=== PATIENT | male | born 2000 | race Caucasian/White ===

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

== ENCOUNTER 2021-01-23 07:52 | Outpatient (CLI) | payer BC, SELFPAY ==
--- NOTE | 2021-01-23 | ECHO_ITS ---
Patient Info Name: Rajat Mullins Age: 20 years : 2000 Gender: Male Ht: 73 in Wt: 140 lbs BSA: 1.79 m2 HR: 107 bpm BP: 174 / 104 mmHg Heart Rhythm: Tachycardia, Sinus Rhythm Exam Date: 01/23/2021 8:21 AM Exam Location: [facility] Patient Status: Outpatient Admit Date: 01/23/2021 Staff Ordering Physician: Saul Rivera MD Phthalic Acid Purifier: Rajat Franco RDCS, RT Attending Provider: Saul Rivera MD Referring Physician: Miguel CATALAN; Exam Type: CA echo doppler color flow Study Info Indications R06.00 - Dyspnea, unspecified Complete two-dimensional, color flow and Doppler transthoracic echocardiogram is performed. Strain analysis performed. Summary 1. Complete two-dimensional, color flow and Doppler transthoracic echocardiogram is performed. 2. Left ventricular chamber dimension is normal. 3. Left ventricular systolic function is normal, estimated at 60-65%. 4. There is no increased left ventricular wall thickness. 5. Elongated heart. 6. The left ventricular diastolic function is normal. 7. There is no mitral valve regurgitation. 8. There is trace tricuspid valve regurgitation. 9. Unable to estimate PA systolic pressure due to poor spectral resolution of tricuspid regurgitant jet velocity. 10. There is a small anterior pericardial effusion. Left Ventricle Left ventricular chamber dimension is normal. Left ventricular systolic function is normal, estimated at 60-65%. There is no increased left ventricular wall thickness. The left ventricular diastolic function is normal. Global longitudinal strain is mildly elevated at -15 %. Elongated heart. Right Ventricle Right ventricular chamber dimension is normal. Right ventricular systolic function is normal. Left Atria Left atrial chamber dimension is normal. Right Atria Right atrial chamber dimension is normal. Aortic Valve The aortic valve is probable trileaflet. There is no aortic valve stenosis. There is no aortic valve regurgitation. Pulmonic Valve The pulmonic valve is not well visualized. Mitral Valve The mitral valve has normal leaflets. There is no mitral valve regurgitation. Tricuspid Valve The tricuspid valve leaflets are normal. There is trace tricuspid valve regurgitation. Unable to estimate PA systolic pressure due to poor spectral resolution of tricuspid regurgitant jet velocity. Pericardium/Pleural The pericardium appears normal. There is a small anterior pericardial effusion. Inferior Vena Cava Normal inferior vena cava with >50% collapse upon inspiration consistent with normal right atrial pressure, 5 mmHg. Aorta The aortic root size at the sinus of Valsalva is normal. Left Ventricular Outflow Tract Name Value Normal LVOT 2D LVOT Diameter 1.9 cm LVOT Doppler LVOT Peak Gradient 3 mmHg LVOT Mean Gradient 1 mmHg LVOT VTI 12 cm LVOT VTI/AV VTI Ratio 0.8 LVOT Stroke Volume 33 ml LVOT CO 3.3 l/min LV
--- NOTE | 2021-01-28 18:27 | WPDPFTINT ---
PFT Procedure Performed PFT Procedure Performed Spirometry with Pre/Post Bronchodilator Plethysmography (Lung Vol) Diffusing Cap (DLCO) Flow Vol Loop PFT Interpretation DOS: 01/23/2021 REQUESTING: Dr Saul Rivera REASON FOR TESTING: Pectus carinatum, dyspnea PULMONARY FUNCTION TESTS Spirometry: FEV1 is 71%, 3.56 L, mildly decreased. FVC is normal, 87%. The FEV1/ FVC ratio is 69%, decreased, consistent with mild airflow obstruction. After bronchodilator therapy there is no increase in flows. Lung volumes: Total lung capacity is increased 135%, consistent with mild hyperinflation. Residual volume is severely increased, 132%, indicating severe air trapping. RV/TLC is at the upper limit of normal, 35%. Airway resistance is normal 123%. Diffusion: DLCO is 90%, normal. Flow volume loop: Abnormal inspiratory limb. IMPRESSION: Mild obstructive ventilatory defect, mild hyperinflation, severe air trapping and normal diffusion. No response to bronchodilator. Lack of response to bronchodilator should not preclude use if clinically indicated. Tiffany Ramsey MD
== END 2021-01-23 07:53 | disposition home or self-care (01) ==
PROVIDERS: PCP Emergency Medicine; Visit Provider Emergency Medicine
DX: Q67.7 Pectus carinatum (principal); R06.00 Dyspnea, unspecified
CPT/HCPCS: 93306; 94060; 94726; 94729

== ENCOUNTER 2024-07-26 08:40 | Emergency (ER) | payer BC, SELFPAY ==
[2024-07-26 08:46] VITALS: BP 155/71; PULSE 89; RESP 18; TEMP 36.7; O2SAT 100
--- NOTE | 2024-07-26 08:59 | ED.URI ---
HPI - URI/Sore Throat General Chief Complaint: Upper Respiratory Infection Stated Complaint: Sore Throat/Cough/Body Aches Time Seen by Provider: 07/26/24 09:03 Source: patient and RN notes reviewed Mode of arrival: ambulatory Limitations: no limitations History of Present Illness HPI Narrative: 23-year-old male presents concern for sore throat, hoarse voice, body aches and cough for 2 days. Reports he feels fevers but has not taken his temperature. He has not taken any [id number] medications MD elicited complaint: cough and sore throat Related Data Home Medications ?Medication ?Instructions ?Recorded ?Confirmed ?Last Taken ?Type Cialis 07/26/24 Unknown History Allergies Allergy/AdvReac Type Severity Reaction Status Date / Time No Known Allergies Allergy Unverified 07/01/17 11:33 Review of Systems Review of Systems: CONSTITUTIONAL: Denies malaise, chills, sweats. Reports tactile fever. EYES: Denies visual changes, redness, or discharge. ENT: Reports rhinorrhea, congestion, and sore throat. CARDIOVASCULAR: Denies chest pain, palpitations, or edema. RESPIRATORY: Reports cough. Denies dyspnea. GASTROINTESTINAL: Denies abdominal pain, nausea, vomiting, diarrhea SKIN: Denies rash or itching. MUSCULOSKELETAL: Denies myalgia. NEUROLOGIC: Denies headache. All systems reviewed & are unremarkable except as noted in HPI and below PMFSH Comments At time of signature, agree with nursing past medical, surgical, social and family history. There is no relevant family history pertinent to the presenting complaint Exam Narrative: GENERAL: Well-appearing, well-nourished, and in no acute distress. HEAD: Normocephalic EYES: PERRLA, conjunctivae clear ENT: Nares clear. Mucous membranes moist. TM pearly lopes with sharp light reflex bilaterally; no tragal tenderness. Oropharynx not erythematous without lesions. Tonsils not enlarged and without exudate, no drooling, no hoarseness, no trismus, uvula midline. NECK: Supple. No lymphadenopathy CHEST: Clear to auscultation, breath sounds equal. No wheezing, rhonchi, rales, or stridor. No respiratory distress, speaks in full sentences. HEART: Regular rate and rhythm. No murmur heard. SKIN: Warm, dry, no rash. NEURO: Alert and oriented x3. PSYCH: Normal mood and affect Course Course Emergency Course: Patient is aware of diagnosis, understands and agrees to treatment plan. Anticipatory guidance given. Patient agrees to follow-up as directed and is aware of reasons to seek care at the emergency department. Portions of this record may have been created with voice recognition software Level of Care: Express Care Visit Vital Signs Vital signs: Vital Signs Temperature 98.1 F 07/26/24 08:46 Pulse Rate 89 07/26/24 08:46 Respiratory Rate 18 07/26/24 08:46 Blood Pressure 155/71 H 07/26/24 08:46 Pulse Oximetry 100 07/26/24 08:46 Oxygen Delivery Room Air 07/26/24 08:46 Temperature 98.1 F 07/26/24 08:46 Pulse Rate 89 07/26/24 08:46 Respiratory Rate 18 07/26/24 08:46 Blood Pressure 155/71 H 07/26/24 08:46 Pulse Oximetry 100 07/26/24 08:46 Oxygen Delivery Room Air 07/26/24 08:46 Reviewed. MDM - URI/Sore Throat MDM Narrative Medical decision making narrative: Differential diagnosis considered: [place] virus, strep pharyngitis, allergic rhinitis, upper respiratory tract infection, sinusitis, rhinosinusitis, nasopharyngitis. viral pharyngitis, otitis media, otitis externa, pneumonia, bronchitis, viral cough syndrome, viral syndrome, and influenza. Exam findings show no acute concerns or changes; patient is non-toxic appearing and is in no distress. Patient is appropriate for outpatient treatment and follow-up. Lab Data Attestation: I reviewed the patient's lab results. Critical Care Time Critical Care Time Critical Care Time: No Discharge Plan Discharge Clinical Impression: Upper respiratory infection Patient Disposition: Home, Self-Care Condition: Stable Instructions: Upper Respiratory Infection (ED) Additional Instructions: Your rapid COVID and flu tests are negative Your rapid strep swab was negative today at [facility]. A throat culture will be sent to the laboratory for further testing. If the test is positive, you will receive a phone call within 48 hours and an appropriate antibiotic will be initiated at that time. Your symptoms are likely due to a viral illness, which is not treated with antibiotics. Viral symptoms can be present for up to a few weeks. -Alternate Tylenol and Motrin per package directions for fever or pain. -Antihistamine medication such as Benadryl at night and Zyrtec during the day can help improve symptoms. -Eat and drink things that are easy to swallow, like tea or soup, or popsicles to suck on. -Oral rinses such as: Salt water gargles and/or may use topical anesthetic (eg. Chloraseptic spray) or lozenges to relieve dryness or throat pain). -Frequent hand washing or hand gravel wheeler is one of the best ways to prevent spread of infection. -Follow up with primary care provider in 2-3 days if condition is not improving; or seek ER visit if you have trouble breathing, cannot drink enough fluids, have muffled voice, difficulty opening your mouth, or severe swelling. Patient Language: Hungarian Prescriptions: New pseudoephedrine HCl [12 Hour Decongestant] 120 mg tablet extended release 120 mg PO Q12H PRN (Reason: nasal congestion) Qty: 20 0RF dextromethorphan-guaifenesin [Mucinex DM] 60-1,200 mg tablet extended release 12 hr 1 tablet PO Q12H Qty: 12 0RF No Action Cialis Follow-up/Referrals: PHYSICIAN,[facility] [Primary Care Provider] - Stand Alone Forms: Work/School Release IP Time of Disposition: 09:10
[2024-07-26 09:07] LABS: EDCOVIDSCREEN Negative (Negative); EDINFLUASCREEN Negative (Negative); EDINFLUBSCREEN Negative (Negative)
[2024-07-26 09:07] LABS: EDSTREPNEGPOS1 Negative (Negative)
--- OUTSIDE RECORDS SUMMARY | 2024-07-26 09:15 | XMS_ITS | Clinical Summary ---
Author Organization [facility] Address [address] [place] [address] Care Team Providers Care Channel Account Manager Name Role Phone Saul Rivera MD Primary Care Provider [phone] Allergies No known active allergies Medications sertraline (ZOLOFT) 50 mg tablet Take 50 mg by mouth daily 1 Active adapalene (DIFFERIN) 0.3 % gel Apply 1 application topically nightly 1 Active clindamycin (CLEOCIN T) 1 % external solution Apply 1 application topically 2 (two) times a day Apply to the face and trunk. 1 Active minocycline (MINOCIN,DYNACIN) 100 mg capsuleIndication s:for acne Take 100 mg by mouth 2 (two) times a day 1 Active cholecalciferol (VITAMIN D-3) 5,000 unit capsule Take 5,000 Units by mouth daily Active acetaminophen (TYLENOL) 325 mg tabletIndications :Pain Take 2 tablets (650 mg total) by mouth every 4 (four) hours as needed for pain 2 Active Additional Information Patient not taking.Reported on 07/31/2022 methylphenidate ER (CONCERTA) 27 mg CR tabletIndications :Attention-Defici t Hyperactivity Disorder Take 27 mg by mouth every morning Active acetaminophen (TYLENOL) 325 mg tabletIndications :Pain Take 2 tablets (650 mg total) by mouth every 6 (six) hours as needed for pain 30 tablet 3 Active Additional Information Patient not taking.Reported on 07/31/2022 ibuprofen (ADVIL,MOTRIN) 400 mg tablet Take 1.5 tablets (600 mg total) by mouth every 6 (six) hours as needed for pain 30 tablet 3 Active Additional Information Patient not taking.Reported on 07/31/2022 methylphenidate ER (CONCERTA) 18 mg CR tablet Take 18 mg by mouth every morning 2 Active Active Problems Problem Noted Date Diagnosed Date Anxiety 08/06/2021 Depression 08/06/2021 Asthma 08/06/2021 Acute post-operative pain 08/06/2021 Pectus carinatum 10/25/2020 Immunizations Name Administration Dates Next Due DTaP 11/05/2005, 3,05/17/2002,03/16,01/01/2002 HPV9 12/30/2017 Hep A, Pediatric 12/30/2017 Hep B, Adolescent or Pediatric 2,01/01/2002,2001,10/29 HiB 01/31/2003, 2,03/16/2002,01/01 Hib (HbOC) 01/31/2003 IPV 11/05/2005, 3,05/17/2002,03/16,01/01/2002 Influenza, Quadrivalent, Spl it, Preservative Free, Intramuscular 08/10/2021 MMR 11/05/2005,01/31/2003 Meningococcal Conjugate (Menveo) 12/30/2017 Pneumococcal Conjugate 7-Valent 05/03/20 03,10/31/2002,05/17/2002,03/16,01/01/2002 Pneumococcal Conjugate, Unspecified 05/03/2003 Tdap 02/25/2013 Varicella 03/05/2016,10/31/2002 Surgical History Surgery Date Site/Laterality Comments UPPER GASTROINTESTINAL ENDOSCOPY 06/15/2014 - 06/14/2015 OTHER SURGICAL HISTORY x2- one surgery on arm for spider bite, second on leg for infection-no MRSA per pt CHEST SURGERY RECONSTRUCTION PECTUS EXCAVATUM / CARINATUM W/ OR W/O THORASCOPY 08/06/2021 Aidan PECTUS CARNATUM REPAIR 08/06/2021 Medical History Medical History Date Comments Pectus carinatum 10/25/2020 Anxiety Spider bite surgery on arm Family History Medical History Relation Name Comments No Known Problems Brother Lupus Mother No Known Problems Sister Relation Name Status Comments Brother Mother Sister Social History Tobacco Use Types Packs/Day Years Used Date Smoking Tobacco: Never Smokeless Tobacco: Never Tobacco Cessation:Counseling Given: Not Answered Personal Safety Answer Date Recorded Getting School Help Needed Denies 06/05 Sex and Gender Information Value Date Recorded Sex Assigned at Not on file Legal Sex Male 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 Gender Identity Not on file Sexual Orientation Not on file Obstetrics History Last Filed Vital Signs Vital Sign Reading Time Taken Comments Blood Pressure 104/60 07/31/2022 10:40 AM BIAS CUTTING MACHINE OPERATOR Pulse 86 07/31/2022 10:40 AM BIAS CUTTING MACHINE OPERATOR Temperature 36.4 C (97.5 F) 07/04/2022 4:25 PM BIAS CUTTING MACHINE OPERATOR Respiratory Rate 18 07/04/2022 4:25 PM BIAS CUTTING MACHINE OPERATOR Oxygen Saturation 100% 07/31/2022 10:40 AM BIAS CUTTING MACHINE OPERATOR Inhaled Oxygen Concentration - - Weight 67 kg (147 lb 9.6 oz) 07/31/2022 10:40 AM BIAS CUTTING MACHINE OPERATOR Height 187.5 cm (6' 1.82 ) 07/31/2022 10:[address] Body Mass Index 19.04 07/31/2022 10:40 AM BIAS CUTTING MACHINE OPERATOR Plan of Treatment Health Maintenance Due Date Last Done Comments Depression Screening 2000 Hepatitis C Screening 2000 Pneumococcal vaccine <65 (1 of 1 - PPSV23 or PCV20) 10/30/2007 05/03/2003, 05/03/2003, 10/31/2002, Additional history exists Meningococcal B Vaccine (1 o f 2 - Patient Seeks Protection) 2017 HPV Vaccines (2 - Male 3-dos e series) 01/27/2018 12/30/2017 Regular Well Visit/Exam 18-64 10/30/2019 DTaP/Tdap/Td Vaccine (7 - Td or Tdap) 02/25/2023 02/25/2013, 11/05/2005, 05/03/2003, Additional history exists Influenza Vaccine (#1) 2024 08/10/2021 Varicella Vaccines Completed 03/05/2016, 10/31/2002 Medical Devices Explanted Type Area Apparel Sales Associate Device Identifier Shelf Expiration Date Model / Serial / Lot [employer] [id number] Reagan 18cm Strut Pectus Bar Support Stainless Steel - [id number] Implanted:Qty: 1 on 08/06/2021 by Francisco Berg MD at [facility] Explanted:Qty: 1 on 07/04/2022 by Deep Nova MD at [facility] N/A: Chest [employer] [id number] / / Insurance IDAR Inaaya [facility] In[employer]aya CHOICE [place] IDPA [employer] OOS Member Subscriber Plan / Payer (Ef fective 2020-Present) Name:Rajat Mullins Relation to Subscriber:Self Name:Rajat Mullins Payer ID:[id number] (NAIC) Type:Business Lab Address: [address] [place] [address] [employer] OOS Member Subscriber Plan / Payer (Ef fective 2020-Present) Name:Rajat Mullins Relation to Subscriber:Self Name:Rajat Mullins Payer ID:[id number] (NAIC) Type:Business Lab Address: [address] [place] [address] [place] [address] Advance Directives For more information, please contact: [phone] Documents on File Type Date Recorded 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
--- OUTSIDE RECORDS SUMMARY | 2024-07-26 09:15 | XMS_ITS | Referral Summary ---
Author Organization [facility] Address [address] [place] [address] Care Team Providers Care Java Grails Developer Name Role Phone Saul Rivera MD Primary Care Provider [phone] Source Comments [facility],non-owned Affiliates and Associated Physician Practices is amultiple site organization consisting of ambulatory clinics and hospital sitesin [place], [place], [place] and [place]. This disclosure is being madepursuant to the Care Everywhere program and may not contain all information available regarding this patient. Last updated 18.[facility] Allergies No known active allergies Medications * Be aware that medications may not be up to date on this document. Alwaysverify current medications with the patient. Medication Sig Dispensed Refills Start Date End Date Status diphenhydrAMINE (BENADRYL) 25 MG tablet Take by mouth every 4 hours as needed for Itching Active atomoxetine (STRATTERA) 10 MG capsule Take 25 mg by mouth every morning Active QUEtiapine (SEROQUEL) 25 MG tablet Take 12.5 mg by mouth at bedtime Active sertraline (ZOLOFT) 50 MG tablet Take 50 mg by mouth once daily Active propranolol (INDERAL) 10 MG tablet Take 10 mg by mouth as needed for Hypertension Taking for anxiety Active albuterol HFA (VENTOLIN HFA) 108 (90 Base) MCG/ACT inhaler inhale 2 puff by inhalation route every 4 - 6 hours as needed as needed 03/18/2021 Active clindamycin (CLEOCIN T) 1 % solution APPLY 1 APPLICATION ON THE FACE AND TRUNK TWICE DAILY 02/01/2021 Active escitalopram (LEXAPRO) 10 MG tablet 02/09/2020 Active minocycline (MINOCIN) 100 MG capsule Take 1 capsule by mouth every 12 hours 03/18/2021 Active Active Problems Patient Care Coordination No te Formatting of this note migh t be different from the original. Standing lab orders, [facility] ([facility]); valid 03/15/18-09/13/18 Problem Noted Date Diagnosed Date Anxiety 04/23/2018 Overview (04/23/2018): adolescent onset 04/23/18 very self-conscious about pectus>acne; home-school GED program with special training ; denies feelings of self-harm; Psych eval planned pending 05/12 counselor assessment brother with h/o depression/on medication Acne conglobata 02/19/2018 Overview (04/23/2018): Citizen.VC #[id number] 02/19/18 severe chest/back>face on Augmentin, clinda, BPO; Rx isotretinoin pending MetacafeEDReaLync baseline labs 03/02/18 start isotretinon at 10 mg/d 04/22/18 mod-severe with scarring S/P isotretinon, ~2 wk off 10 mg/d X30d, (does not bother pt) complicated by worsening anxiety; consider restarting after Psych eval; Rx tretinoin 0.05% Pectus carinatum 01/28/2018 Overview (04/23/2018): 01/28/18 plans for brace fitting pending acne tx (per Dr. Claire) 04/23/18 pts primary concern; plan reeval for brace mat hx pectus carinatum Abdominal pain, generalized 10/19/2014 Resolved Problems Problem Noted Date Diagnosed Date Resolved Date Nausea without vomiting 10/19/201402/2018 Overview (03/15/2015): Social History Tobacco Use Types Packs/Day Years Used Date Smoking Tobacco: Never Smokeless Tobacco: Never Tobacco Cessation:Counseling Given: No Alcohol Use Standard Drinks/Week Comments No 0 (1 standard drink = 0.6 oz pur e alcohol) Sex and Gender Information Value Date Recorded Sex Assigned at Not on file Gender Identity Not on file Sexual Orientation Not on file Last Filed Vital Signs Vital Sign Reading Time Taken Comments Blood Pressure 122/87 04/10/2021 10:54 AM CDT Pulse 103 04/10/2021 10:54 AM CDT Temperature 36.8 C (98.2 F) 04/10/2021 10:54 AM CDT Respiratory Rate 20 10/27/2014 1:30 PM CDT Oxygen Saturation 98% 04/10/2021 10:54 AM CDT Inhaled Oxygen Concentration - - Weight 63 kg (139 lb) 04/10/2021 10:54 AM CDT Height 185.4 cm (6' 1 ) 04/10/2021 10:54 AM CDT Body Mass Index 18.34 04/10/2021 10:54 AM CDT Plan of Treatment Not on file Care Teams Java Grails Developer Relationship Specialty Start Date End Date Saul Rivera MD PCP - General 10/23/20
--- OUTSIDE RECORDS SUMMARY | 2024-07-26 09:15 | XMS_ITS | Patient Health Summary ---
Author Organization [facility] Address [address] [place] [address] Care Team Providers Care C D Still Operator Name Role Phone Saul Rivera MD Primary Care Provider Note from [facility],non-owned Affiliates and Associated Physician Practices is amultiple site organization consisting of ambulatory clinics and hospital sitesin [place], [place], [place] and [place]. This disclosure is being madepursuant to the Care Everywhere program and may not contain all information available regarding this patient. Last updated 18.[facility] Allergies No known active allergies Medications * Be aware that medications may not be up to date on this document. Alwaysverify current medications with the patient. * diphenhydrAMINE (BENADRYL) 25 MG tablet Take by mouth every 4 hours as needed for Itching * atomoxetine (STRATTERA) 10 MG capsule Take 25 mg by mouth every morning * QUEtiapine (SEROQUEL) 25 MG tablet Take 12.5 mg by mouth at bedtime * sertraline (ZOLOFT) 50 MG tablet Take 50 mg by mouth once daily * propranolol (INDERAL) 10 MG tablet Take 10 mg by mouth as needed for Hypertension Taking for anxiety * albuterol HFA (VENTOLIN HFA) 108 (90 Base) MCG/ACT inhaler(Started 03/18/2021) inhale 2 puff by inhalation route every 4 - 6 hours as needed as needed * clindamycin (CLEOCIN T) 1 % solution(Started 02/01/2021) APPLY 1 APPLICATION ON THE FACE AND TRUNK TWICE DAILY * escitalopram (LEXAPRO) 10 MG tablet(Started 02/09/2020) * minocycline (MINOCIN) 100 MG capsule(Started 03/18/2021) Take 1 capsule by mouth every 12 hours Active Problems Problem Noted Date Diagnosed Date Anxiety 04/23/2018 Acne conglobata 02/19/2018 Pectus carinatum 01/28/2018 Abdominal pain, generalized 10/19/2014 Resolved Problems Problem Noted Date Diagnosed Date Resolved Date Nausea without vomiting 10/19/201402/2018 Social History Tobacco Use Types Packs/Day Years [...] Mass Index 18.34 04/10/2021 10:54 AM CDT Procedures * NM RENAL SCAN W DRUG(Performed 04/26/2021) Performed for Hydronephrosis, unspecified hydronephrosis type * URINALYSIS AUTO - POINT OF CARE (AMB) [facility](Performed 04/10/2021) Performed for Hydronephrosis, unspecified hydronephrosis type * PROTEIN CREATININE RATIO URINE RANDOM PNL(Performed 01/08/2021) Performed for Proteinuria, unspecified type, Isolated proteinuria with morphologic lesion, Hydronephrosis, unspecified hydronephrosis type * URINALYSIS W/MICROSCOPIC NO CULTURE(Performed 01/08/2021) Performed for Proteinuria, unspecified type, Isolated proteinuria with morphologic lesion, Hydronephrosis, unspecified hydronephrosis type * RENAL FUNCTION PANEL(Performed 01/08/2021) Performed for Proteinuria, unspecified type, Isolated proteinuria with morphologic lesion, Hydronephrosis, unspecified hydronephrosis type * PROTEIN CREATININE RATIO URINE RANDOM PNL(Performed 12/12/2020) * MICROALB/CREAT RATIO URINE RANDOM PANEL(Performed 12/12/2020) * PROTEIN ELECTROPH REFLX ROBERT UR TIMED(Performed 12/07/2020) * US RETROPERITONEAL COMPLETE(Performed 11/27/2020) Performed for Proteinuria, unspecified type, Hydronephrosis, unspecified hydronephrosis type * XR SPINE ENTIRE 2 OR 3VW(Performed 09/01/2018) Performed for Pectus carinatum * CBC W AUTO DIFFERENTIAL(Performed 04/09/2018) * COMPREHENSIVE METABOLIC PANEL(Performed 04/09/2018) * TRIGLYCERIDES BLOOD(Performed 04/09/2018) * TRIGLYCERIDES BLOOD(Performed 02/19/2018) Performed for Encounter for long-term current use of high risk medication * COMPREHENSIVE METABOLIC PANEL(Performed 02/19/2018) Performed for Encounter for long-term current use of high risk medication * CBC W AUTO DIFFERENTIAL(Performed 02/19/2018) Performed for Encounter for long-term current use of high risk medication * ECHO CONSULT - PEDIATRIC(Performed 02/03/2018) Performed for Pectus carinatum * XR CHEST 2VW(Performed 01/28/2018) Performed for Pectus carinatum * ESOPHAGOGASTRODUODENOSCOPY (EGD) BIOPSY(Performed 10/27/2014) Performed for Abdominal pain, unspecified site * PATHOLOGY TISSUE EXAM (STL)(Performed 10/27/2014) Performed for Abdominal pain, unspecified site [789.00] * HELICOBACTER PYLORI UREASE (STL)(Performed 10/27/2014) Performed for Abdominal pain, generalized, Nausea alone * EGD(Performed 10/27/2014) Performed for Abdominal pain, generalized, Nausea alone * TISSUE TRANSGLUTAMINASE AB IGA(Performed 10/19/2014) Performed for Abdominal pain, generalized, Nausea alone * IGA BLOOD(Performed 10/19/2014) Performed for Abdominal pain, generalized, Nausea alone * C-REACTIVE PROTEIN(Performed 10/19/2014) Performed for Abdominal pain, generalized, Nausea alone * CBC W AUTO DIFFERENTIAL(Performed 10/19/2014) Performed for Abdominal pain, generalized, Nausea alone * LIPASE BLOOD(Performed 09/30/2014) * AMYLASE BLOOD(Performed 09/30/2014) * COMPREHENSIVE METABOLIC PANEL(Performed 09/30/2014) * XR ABD OBSTRUCTION SERIES 2VW(Performed 09/30/2014) Performed for Abdominal pain, generalized Results * NM RENAL SCAN W DRUG (04/26/2021 11:33 AM TECHNICAL SERVICE REPRESENTATIVE) Anatomical Region Laterality Modality Abdomen Nuclear Medicine 04/26/2021 11:0 0 AM TECHNICAL SERVICE REPRESENTATIVE Impressions 04/26/2021 1:03 PM TECHNICAL SERVICE REPRESENTATIVE Impression: 1. Mildly hydronephrotic right kidney no evidence of obstruction. 2. Normal function of the left kidney. 3. Split function is 48% left and 52% right. This report was approved by Cecil Zaman on 04/26/2021 12:56 PM . I, Dr. TERE AMADO D.O. have personally reviewed and interpreted this examination/study. This report was electronically signed by TERE AMADO D.O. on 04/26/2021 1:03 PM . Narrative 04/26/2021 1:03 PM TECHNICAL SERVICE REPRESENTATIVE Procedure: Renal blood flow and function with Lasix diuresis. History: 20 year old male with right hydronephrosis . Technique: 10.9 mCi of Tc-99m MAG3, injected IV in the right ac. Sequential dynamic blood flow images of the abdomen were obtained in the anterior and posterior projections for 30 minutes following radiotracer injection. 31.5 mg Lasix was injected intravenously over 3 minutes after the last image, followed by 30 minutes of additional dynamic image acquisition of the abdomen in anterior and posterior projections. Patient's BMI 18.34 kg/m2. Comparison: No similar prior studies are available for comparison. Correlation is made with renal ultrasound on 11/27/2020. Findings: Blood flow images reveal near symmetrical perfusion to both kidneys. Sequential functional images obtained for 30 minutes reveal : Left kidney is normal in size, contour with normal peak uptake and excretion. Right kidney is normal in size, contour with mildly delayed peak uptake and shows partial dilatation of the pelvicalyceal system. Both ureters showed radiotracer activity throughout its length. Post-Lasix images demonstrate near complete clearance of the residual tracer from both kidneys. Quantitative function Left Right Renography 4.5 7.5 Peak time (min) 9 15 Half peak time (min) 48 52 Differential function (%) Lasix renography Left Right -- -- Half-peak time (min) Procedure Note Tere Amado DO - 04/26/2021 Procedure: Renal blood flow and function with Lasix diuresis. History: 20 year old male with right hydronephrosis . Technique: 10.9 mCi of Tc-99m MAG3, injected IV in the right ac. Sequential dynamic blood flow images of the abdomen were obtained in the anterior and posterior projections for 30 minutes following radiotracer injection. 31.5 mg Lasix was injected intravenously over 3 minutesafter the last image, followed by 30 minutes of additional dynamic image acquisition of the abdomen in anterior and posterior projections. Patient's BMI 18.34 kg/m2. Comparison: No similar prior studies are available for comparison. Correlation is made with renal ultrasound on 11/27/2020. Findings: Blood flow images reveal near symmetrical perfusion to both kidneys. Sequential functional images obtained for 30 minutes reveal : Left kidney is normal in size, contour with normal peak uptake and excretion. Right kidney is normal in size, contour with mildly delayed peak uptake and shows partial dilatation of the pelvicalyceal system. Both ureters showed radiotracer activity throughout its length. Post-Lasix images demonstrate near complete clearance of the residual tracer from both kidneys. Quantitative function Left Right Renography 4.5 7.5 Peak time (min) 9 15 Half peak time (min) 48 52 Differential function (%) Lasix renography Left Right -- -- Half-peak time (min) Impression: 1. Mildly hydronephrotic right kidney no evidence of obstruction. 2. Normal function of the left kidney. 3. Split function is 48% left and 52% right. This report was approved by Cecil Zaman on 04/26/2021 12:56 PM . IDr. TERE D.O. have personally reviewed and interpreted this examination/study. This report was electronically signed by TERE AMADO D.O. on 04/26/2021 1:03 PM . [facility] ORDERABLES * URINALYSIS AUTO - POINT OF CARE (AMB) [facility] (04/10/2021 11:42 AM CDT) Glucose UA neg Bilirubin UA POCT neg Ketones UA POCT neg Specific Anson UA 1.010 Blood Urine POCT neg pH UA 6.0 Protein UA neg Urobilinogen UA 0.2 mg/dL Nitrite UA neg WBC UA neg Urine URINE / Unknown 04/10/2021 1 1:42 AM CDT Brandy Carroll DO LAB - POINT OF CAR E ORDERABLES * URINALYSIS W/MICROSCOPIC NO CULTURE (01/08/2021 12:26 PM CDT) Color UA YELLOW YELLOW [facility] Appearance CLEAR CLEAR [facility] Specific Anson UA 1.005 1.001 - 1.035 [facility] pH UA 6.5 5.0 - 8.0 [facility] Glucose UA NEGATIVE NEGATIVE [facility] Bilirubin UA NEGATIVE NEGATIVE [facility] Ketone UA NEGATIVE NEGATIVE [facility] Blood UA NEGATIVE NEGATIVE [facility] Protein UA NEGATIVE NEGATIVE [facility] Nitrite UA NEGATIVE NEGATIVE [facility] Leukocyte UA NEGATIVE NEGATIVE [facility] WBC UA NONE SEEN < OR = 5 /HPF [facility] RBC UA NONE SEEN < OR = 2 /HPF [facility] Epithelial Cell UA NONE SEEN < OR = 5 /HPF [facility] Bacteria UA NONE SEEN NONE SEEN /HPF [facility] Hyaline Casts NONE SEEN NONE SEEN /LPF [facility] Comment: Test Performed at: [facility] [address] [place] [id number] SALLIE MARES DO,MPH Urine URINE SPECIMEN OBTAINED BY CLEAN CATCH PROCEDURE / Unknown 01/08/2021 12:26 PM CDT 01/08/2021 12:27 PM CDT Kayli Orozco MD LAB - URINALYSIS ORD ERABLES [facility] [address] [place] [address] * RENAL FUNCTION PANEL (01/08/2021 12:26 PM CDT) Glucose 82 65 - 139 mg/dL [facility] Comment: Non-fasting reference interval BUN 18 7 - 20 mg/dL [facility] Creatinine 0.78 0.60 - 1.26 mg/dL [facility] eGFR by MDRD 131 > OR = 60 mL/min/1. 73m2 [facility] eGFR by MDRD 152 > OR = 60 mL/min/1. 73m2 [facility] BUN/Creatinine Ratio NOT APPLICABLE 6 - 22 (calc) [facility] Sodium 138 135 - 146 mmol/L [facility] Potassium 4.1 3.8 - 5.1 mmol/L [facility] Chloride 100 98 - 110 mmol/L [facility] CO2 26 20 - 32 mmol/L [facility] Calcium 9.7 8.9 - 10.4 mg/dL [facility] Phosphorus 3.9 2.5 - 4.5 mg/dL [facility] Albumin 4.5 3.6 - 5.1 g/dL [facility] Comment: Test Performed at: [facility] [id number] [employer] [facility] [address] SALLIE MARES DO,MPH Blood BLOOD SPECIMEN / Unknown 01/08/2021 12:26 PM CDT 01/08/2021 12:27 PM CDT Kayli Orozco MD LAB - CHEMISTRY ORDE RABVERITO Performing Organization Address [facility] de Phone Number [facility] [address] [place] [address] * (ABNORMAL) PROTEIN CREATININE RATIO URINE RANDOM PNL (01/08/2021 12:26 PM CDT) Only the most recent of2 resultswithin the time period is included. Creatinine Urine 23 20 - 320 mg/dL [facility] Protein/Creatini ne Ratio 217(H) 22 - 128 mg/g creat [facility] Protein/Creatini ne Ratio 0.217(H) 0.022 - 0.128 mg/mg creat [facility] Protein Random Urine 5 5 - 25 mg/dL [facility] Comment: REPORT COMMENT: FASTING:NO Test Performed at: [facility] [address] [employer] [facility] [address] SALLIE MARES DO,MPH Urine URINE SPECIMEN OBTAINED BY CLEAN CATCH PROCEDURE / Unknown 01/08/2021 12:26 PM CDT 01/08/2021 12:27 PM CDT Kayli Orozco MD LAB - URINE CHEMISTR Y ORDERABLES Performing Organization Address [facility] Co de Phone Number [facility] [address] [place] [address] * MICROALB/CREAT RATIO URINE RANDOM PANEL (12/12/2020 2:07 PM CDT) Creatinine Urine 64 20 - 320 mg/dL [facility] Microalbumin Urine 0.2 mg/dL [facility] Comment: Reference Range Not established Microalbumin/Creat inine Ratio 3 <30 mcg/mg creat [facility] Comment: The ADA defines abnormalities in albumin excretion as follows: Category Result (mcg/mg creatinine) Normal <30 Microalbuminuria 30-299 Clinical albuminuria > OR = 300 The ADA recommends that at least two of three specimens collected within a 3-6 month period be abnormal before considering a patient to be within a diagnostic category. Test Performed at: [place] [address] SALLIE MARES DO,MPH 12/12/2020 2:07 PM CDT 12/12/2020 2:08 PM CDT Kayli Orozco MD LAB - URINE CHEMISTR Y ORDERABLES [facility] [address] [place] [address] * (ABNORMAL) PROTEIN ELECTROPH REFLX ROBERT UR TIMED (12/07/2020 3:11 PM CDT) Creatinine 24 Hour Urine 1.32 0.50 - 2.15 g/24 h [facility] Protein 24 Hour Urine 476(H) < OR = 114 mg/g creat [facility] Protein/Creatinine Ratio 0.476(H) < OR = 0.114 mg/mg creat [facility] Protein 24 Hour Urine 630(H) <150 mg/24 h [facility] Albumin 100 % [facility] Alpha-1 Globulin 0 % [facility] Enjtx-2-Kvvafsap 0 % [facility] Beta-Globulin 0 % [facility] Gamma Globulin 0 % [facility] Abnormal Protein Band [facility] Abnormal Protein Band 2 [facility] Abnormal Protein Band 3 [facility] Interpretation [facility] Comment: Agarose electrophoresis of urine reveals albumin. No abnormal protein is observed. REPORT COMMENT: FASTING:NO PATIENT UNABLE TO VOID; ADVISED TO RETURN FOR COLLECTION. Test Performed at: [employer] [facility] [employer] [id number] SALLIE MARES DO,MPH 12/07/2020 3:11 PM CDT 12/08/2020 3:05 AM CDT Kayli Orozco MD LAB - URINE CHEMISTR Y ORDERABLES [facility] [address] [place] [address] * US RETROPERITONEAL COMPLETE (11/27/2020 5:01 PM CDT) Anatomical Region Laterality Modality Abdomen Ultrasound 11/28/2020 8:19 AM CDT Impressions 11/28/2020 9:22 AM CDT IMPRESSION: 1. Mildly echogenic kidneys are suggestive of medical renal disease. 2. Mild right hydronephrosis of uncertain cause, cannot exclude distal obstruction. Questionable dilatation of the distal right ureter near the UV junction- consider further evaluation with CT urogram as needed. Dictated by Radames Medrano MD (radiology manager). I, Dr. NIKA SLATER M.D. have personally reviewed and interpreted this examination/study. This report was electronically signed by NIKA SLATER M.D. on 11/28/2020 9:22 AM . Narrative 11/28/2020 9:22 AM CDT EXAMINATION: Complete retroperitoneal sonogram HISTORY: R80.9: Proteinuria, unspecified type N13.30: Hydronephrosis, unspecified hydronephrosis type COMPARISON: No prior study is available for comparison at the time of this dictation. FINDINGS: Right kidney: 10.7 x 3.8 x 5.2 cm Left kidney: 11.6 x 4.5 x 6.7 cm Mildly echogenic renal parenchyma bilaterally is noted, suggestive of medical renal disease. Margins of both kidneys are not clearly seen Mild right hydronephrosis noted without nephrolithiasis or solid renal mass. No left hydronephrosis, nephrolithiasis or solid renal mass is seen. Blood flow is seen within the renal arteries and veins. The urinary bladder is distended and appears normal. Procedure Note Nika Slater MD - 11/28/2020 EXAMINATION: Complete retroperitoneal sonogram HISTORY: R80.9: Proteinuria, unspecified type N13.30: Hydronephrosis, unspecified hydronephrosis type COMPARISON: No prior study is available for comparison at the time ofthis dictation. FINDINGS: Right kidney: 10.7 x 3.8 x 5.2 cm Left kidney: 11.6 x 4.5 x 6.7 cm Mildly echogenic renal parenchyma bilaterally is noted, suggestive of medical renal disease. Margins of both kidneys are not clearly seen Mild right hydronephrosis noted without nephrolithiasis or solid renal mass.No left hydronephrosis, nephrolithiasis or solid renal mass is seen. Blood flow is seen within the renal arteries and veins. The urinary bladder is distended and appears normal. IMPRESSION: 1. Mildly echogenic kidneys are suggestive of medical renal disease. 2. Mild right hydronephrosis of uncertain cause, cannot exclude distal obstruction. Questionable dilatation of the distal right ureter near the UV junction- consider further evaluation with CT urogram as needed. Dictated by Radames Medrano MD (radiology manager). Dr. NIKA Coon M.D. have personally reviewed and interpreted this examination/study. This report was electronically signed by NIKA SLATER M.D. on 11/28/2020 9:22 AM . Kayli Orozco MD US ORDERABLES * XR SPINE ENTIRE 2 OR 3VW (09/01/2018 11:10 AM CDT) Anatomical Region Laterality Modality Radiographic Rochelle ging 09/01/2018 11:2 5 AM CDT Impressions 09/01/2018 12:31 PM CDT Exaggerated thoracic kyphosis and mild thoracolumbar levocurvature. Dictated by Lawson Andres MD (radiology manager). Gracie Coon, have personally reviewed the images and I agree with this report. Reading Radiologist: Gracie Ramirez MD on 09/01/2018 at 12:31 PM Narrative 09/01/2018 12:31 PM CDT EXAMINATION: Entire spine, upright PA and lateral views HISTORY: Pectus carinatum COMPARISON: No prior study is available for comparison. FINDINGS: AP and lateral views of the entire spine were obtained with the patient standing. There are 12 rib-bearing thoracic vertebrae and 5 hag-rgn-[id number] lumbar vertebrae. No segmentation anomalies are identified. There is exaggerated thoracic kyphosis. There is mild thoracolumbar levocurvature. No pelvic tilt, coronal imbalance, or sagittal imbalance is present. The lungs are clear without focal consolidation. There is increased anteroposterior dimension of the thorax with abnormal contour of the diaphragm, compatible with pectus carinatum. The heart size is normal. The bowel gas pattern is nonobstructive. Both hips are seated. Procedure Note Gracie Ramirez MD - 09/01/2018 EXAMINATION: Entire spine, upright PA and lateral views HISTORY: Pectus carinatum COMPARISON: No prior study is available for comparison. FINDINGS: AP and lateral views of the entire spine were obtained with the patient standing. There are 12 rib-bearing thoracic vertebrae and 5 ggy-hpd-[id number] lumbar vertebrae. No segmentation anomalies are identified. There is exaggerated thoracic kyphosis. There is mild thoracolumbar levocurvature. No pelvic tilt, coronal imbalance, or sagittal imbalance is present. The lungs are clear without focal consolidation. There is increased anteroposterior dimension of the thorax with abnormal contour of the diaphragm, compatible with pectus carinatum. The heart size is normal. The bowel gas pattern is nonobstructive. Both hips are seated. IMPRESSION Exaggerated thoracic kyphosis and mild thoracolumbar levocurvature. Dictated by Lawson Andres MD (radiology manager). I, Gracie Ramirez, have personally reviewed the images and I agree with this report. Reading Radiologist: Gracie Ramirez MD on 09/01/2018 at 12:31 PM Tarik Glass MD DIAGNOSTIC IMAGING O RDERABLES * CBC WITH DIFFERENTIAL (04/09/2018 2:16 PM CDT) Only the most recent of3 resultswithin the time period is included. White Blood Cell Count 8.2 4.5 - 13.0 Thousand/u L [facility] RBC 4.58 4.10 - 5.70 Million/uL [facility] Hemoglobin 13.5 12.0 - 16.9 g/dL [facility] Hematocrit 39.5 36.0 - 49.0 % [facility] MCV 86.2 78.0 - 98.0 fL [facility] MCH 29.5 25.0 - 35.0 pg [facility] MCHC 34.2 31.0 - 36.0 g/dL [facility] RDW 12.3 11.0 - 15.0 % [facility] Platelet Count 342 140 - 400 Thousand/u L [facility] MPV 9.1 7.5 - 12.5 fL [facility] Neutrophil Absolute 4182 1800 - 8000 cells/uL [facility] Lymphocytes Absolute 3223 1200 - 5200 cells/uL [facility] Absolute Monocytes 648 200 - 900 cells/uL [facility] Eosinophils Absolute 82 15 - 500 cells/uL [facility] Basophils Absolute 66 0 - 200 cells/uL [facility] Granulocytes % 51 % [facility] Lymphocytes % 39.3 % [facility] Monocytes % 7.9 % [facility] Eosinophils % 1.0 % [facility] Basophils % 0.8 % [facility] Comment: REPORT COMMENT: FASTING:YES Test Performed at: [place] [address] SALLIE MARES DO,MPH 04/09/2018 2:16 PM CDT 04/09/2018 2:16 PM CDT Janki Gupta MD LAB - HEMATOLOGY O RDERABLES Performing Organization Address [facility] de Phone Number [facility] [address] [place] [address] * TRIGLYCERIDES BLOOD (04/09/2018 2:16 PM CDT) Only the most recent of2 resultswithin the time period is included. Triglycerides 75 <90 mg/dL [facility] Comment: Test Performed at: [place] [address] SALLIE MARES DO,MPH 04/09/2018 2:16 PM CDT 04/09/2018 2:16 PM CDT Janki Gupta MD LAB - CHEMISTRY OR DERABLES Performing Organization Address [facility] Co de Phone Number [facility] [address] [place] [address] * COMPREHENSIVE METABOLIC PANEL (04/09/2018 2:16 PM CDT) Only the most recent of3 resultswithin the time period is included. Glucose 89 65 - 99 mg/dL [facility] Comment: Fasting reference interval BUN 10 7 - 20 mg/dL [facility] Creatinine 0.77 0.60 - 1.20 mg/dL [facility] Comment: Patient is <18 years old. Unable to calculate eGFR. BUN/Creatinine Ratio NOT APPLICABLE (calc) [facility] Sodium 140 135 - 146 mmol/L [facility] Potassium 4.2 3.8 - 5.1 mmol/L [facility] Chloride 103 98 - 110 mmol/L [facility] CO2 30 20 - 32 mmol/L [facility] Calcium 10.0 8.9 - 10.4 mg/dL [facility] Protein Total 7.4 6.3 - 8.2 g/dL [facility] Albumin 4.9 3.6 - 5.1 g/dL [facility] Globulin Total 2.5 2.1 - 3.5 g/dL (calc) [facility] Albumin/Globuli n Ratio 2.0 1.0 - 2.5 (calc) [facility] Bilirubin Total 0.4 0.2 - 1.1 mg/dL [facility] Alkaline Phosphatase 140 48 - 230 U/L [facility] AST 14 12 - 32 U/L [facility] ALT 9 8 - 46 U/L [facility] Comment: Test Performed at: [facility] [address] [place] [address] SALLIE MARES DO,MPH 04/09/2018 2:16 PM CDT 04/09/2018 2:16 PM CDT Janki Gupta MD LAB - CHEMISTRY OR DERABLES [facility] [address] [place] [address] * ECHO CONSULT - PEDIATRIC (02/03/2018 2:00 PM CDT) 02/03/2018 2:00 PM CDT Narrative Procedure Note Luigi Haile MD - 02/03/2018 [address] [place] [address] Fax Non-Congenital Transthoracic Report Pat.Name: RAJAT DENTON [place].ID: [id number] St.Date: 02/03/2018 Exam Time: 2:00:00 PM Study Type:Non-Congenital TTE Height: 158.6cm Weight: 65kg BSA: 1.67 m2 Age: 5 2000,17Y Sex: MALE BP: 91/37 Sonogrphr: Cierra Kincaid MATT Pat. Stat.:Outpatient CPT - 4: 89652 Reason for Study:Pectus carinatum, Evaluate for Marfan's History / Clinical:Echocardiogram to evaluate for Marfan's Procedures:2D Non-congenital, Doppler Complete, Color Flow Visit ID: [id number] SUMMARY: Impression: Technically difficult study due to body habitus Normal intracardiac anatomy and normal biventricular systolic function. No pathologic valve stenosis or regurgitation. Findings: Anatomic Relationships: Abdominal situs solitus. There is levocardia. Atrial situs solitus. The AV alignment is concordant. The ventricular looping is D-looped. The VA connection is concordant. The arterial relationships are normal. Systemic Veins: Normal right SVC. Normal IVC. Pulmonary Veins: Pulmonary veins drain normally to LA. Right Atrium: The right atrial size is normal. Left Atrium: The left atrial size is normal. Atrial Septum: Intact atrial septum. Left to right atrial shunt, none. Tricuspid Valve: The tricuspid valve is structurally normal. There is no stenosis. There is physiologic regurgitation present. Mitral Valve: The mitral valve is structurally normal. There is no stenosis. There is no regurgitation present. Right Ventricle: The cavity size is normal. The wall thickness is normal. The systolic function is normal. RV Outflow Tract: The outflow tract is normal. Left Ventricle: The cavity size is normal. The wall thickness is normal. The systolic function is normal. LV Outflow Tract: The outflow tract is normal. Ventricular Septum: The septal motion is normal. There is no defect with no shunting. Pulmonary Valve: The pulmonic valve is structurally normal. There is no stenosis. There is physiologic regurgitation present. Aortic Valve: The aortic valve is structurally normal. There is no stenosis. There is no regurgitation present. Pulmonary Artery: The MPA is normal. The LPA is normal. The RPA is normal. Aorta: The aortic root is normal. The aortic arch is patent. The arch sidedness is left aortic arch. PDA: No PDA with no shunting. Coronary Arteries: Not visualized. Pericardium: No pericardial effusion. MEASUREMENTS: 2D Aorta AAo 16.5 mm (zsc -3) AoRdiam 22.5 mm (zsc -1.6) MMODE Ventricles LV%fs 34.9 % LVIDd 45.6 mm (zsc -0.9) LV EF 64.2 % LVIDs 29.7 mm (zsc -0.5) IVSd 10.1 mm (zsc 0.6) LVPWd 7.7 mm (zsc -0.9) IVSs 14.1 mm (zsc 0.8) LVPWs 13.2 mm (zsc -0.8) LV Mass 133.6 g (zsc -0.6) AO / LA LAIDs 29.4 mm AoR 24.8 mm DOPPLER Tricuspid Valve TR pkPG 22.4 mmHg TR pkVel 2.4 m/s Signed 02/03/2018 03:14 PM Poonam Haile MD Shivani hCin MD ECHO ORDERABLES Performing Organization Address City/State/[facility] Co de Phone Number [facility] [address] [place] [address] * XR CHEST 2VW (01/28/2018 12:56 PM CDT) Anatomical Region Laterality Modality Chest Radiographic Rochelle ging 01/28/2018 12:5 9 PM CDT Impressions 01/28/2018 1:02 PM CDT Pectus carinatum. Reading Radiologist: Sallie Lopez MD on 01/28/2018 at 1:02 PM Narrative 01/28/2018 1:02 PM CDT INDICATION: Pectus carinatum EXAMINATION: Upright PA and lateral view(s) of the chest 01/28/2018 COMPARISON: None FINDINGS: Lungs are symmetrically aerated and clear. There is abnormal anteroposterior dimension with normal contour of the diaphragm, compatible with carinatum deformity. There is no pleural effusion or pneumothorax. The heart size and mediastinal contours are normal. No acute osseous findings. Procedure Note Sallie Lopez MD - 01/28/2018 INDICATION: Pectus carinatum EXAMINATION: Upright PA and lateral view(s) of the chest 01/28/2018 COMPARISON: None FINDINGS: Lungs are symmetrically aerated and clear. There is abnormal anteroposterior dimension with normal contour of the diaphragm, compatible with carinatum deformity. There is no pleural effusion or pneumothorax. The heart size and mediastinal contours are normal. No acute osseous findings. IMPRESSION Pectus carinatum. Reading Radiologist: Sallie Lopez MD on 01/28/2018 at 1:02 PM Shivani Chin MD DIAGNOSTIC IMAGING O RDERABLES * GROSS + MICRO EXAM (STL) (10/27/2014 12:44 PM CDT) Case Report Surgical Pathology Report Case: [id number] Authorizing Provider: Yordy Edward MD Collected: 10/27/2014 12:44 PM Ordering Location: ENDOSCOPY SERVICES Received: 10/27/2014 01:29 PM Pathologist: Mariaelena Borden MD Specimens: A) - Duodenal Biopsy B) - Stomach Biopsy C) - Esophageal Biopsy 10/30/2014 9:38 AM [facility] Final Diagnosis A. DUODENUM, BIOPSY: - NO HISTOPATHOLOGIC ABNORMALITY B. STOMACH, BIOPSY: - MILD CHRONIC INFLAMMATION C. ESOPHAGUS, BIOPSY: - NO HISTOPATHOLOGIC ABNORMALITY 10/30/2014 9:38 AM [facility] Clinical History The patient is a 13-year-old boy with abdominal pain who underwent upper endoscopy, the findings of which were found to be normal. 10/30/2014 9:38 AM [facility] Gross Description The specimens are received fixed in formalin in three containers for gross and microscopic examination. All containers are labeled with the patient's name, Rajat Denton. Specimen A, duodenal biopsy, consists of two 5 mm soft, yellow-stubbs tissue fragments submitted in toto as A1. Specimen B, stomach biopsy, consists of two soft, yellow-stubbs tissue fragments, 5 mm to 6 mm in greatest dimension. The specimen is submitted in toto as B1. Specimen C, esophageal biopsy, consists of two 4 mm soft, pink-lopes tissue fragments submitted in toto as C1. (LAZARO/aurora) 10/30/2014 9:38 AM T [facility] Microscopic Description 9 H&E slides Sections of the duodenum show normal crypt to villous architecture with no increase in intraepithelial lymphocytes. Sections of the stomach show mild chronic inflammation with lamina propria plasma cells, lymphocytes and a mucosal lymphoid aggregate. There is no evidence of active inflammation. Sections of the esophagus show fragments of unremarkable squamous mucosa. 10/30/2014 9:38 AM T [facility] Disclaimer The performance characteristics of all immunohistochemical and indirect immunofluorescence stains (if any) cited in this report were determined by the [facility] of [facility] in compliance with CLIA `88 regulations. Some of these tests rely on the use of analyte-specific reagents and are subject to specific labeling requirements by the FDA. Such tests were developed by the [facility] of [facility] and have not been cleared or approved by the FDA. The FDA has determined that such clearance or approval is not necessary. These tests are used for clinical purposes and should not be regarded as investigational or for research. This case has been personally reviewed and interpreted by the attending (teaching) pathologist. 10/30/2014 9:38 AM T [facility] Pathology/Cytology ESOPHAGEAL BIOPSY SPECIMEN / Unknown 10/27/2014 12:44 PM CDT 10/27/2014 1:29 PM CDT Miscellaneous samples (specimen) BIOPSY OF STOMACH / Unknown 10/27/2014 12:44 PM CDT 10/27/2014 1:29 PM CDT Miscellaneous samples (specimen) ESOPHAGEAL BIOPSY SPECIMEN / Unknown 10/27/2014 12:44 PM CDT 10/27/2014 1:29 PM CDT Yordy Edward MD LAB - PATHOLOGY/CYT OLOGY ORDERABLES Performing Organization Address City/State/[facility] Co de Phone Number [facility] [address] [place] [address] * HELICOBACTER PYLORI UREASE (STL) (10/27/2014 12:41 PM CDT) Helicobacter pylori Urease Initial Negative Negative 10/28/2014 2:28 PM CDT [facility] Helicobacter pylori Urease Final Negative Negative 10/28/2014 2:28 PM CDT [facility] Microbiology GASTRIC ANTRAL BIOPSY SPECIMEN / Unknown 10/27/2014 12:41 PM CDT 10/27/2014 12:59 PM CDT Bonnie Alberto LIVESTOCK SHOWMAN-QUALITY PROCESS LEAD LAB - MICROBIOLOG Y ORDERABLES Performing Organization Address City/State/[facility] de Phone Number [facility] [address] [place] [address] * EGD (10/27/2014 6:01 AM CDT) Report Endoscopy POC _ Patient Name: Rajat Denton Gender: Male Date of : 2000 Age: 13 Admit Type: Outpatient Attending MD: Yordy Edward MD Order #: [id number] _ Procedure: Upper GI endoscopy Indications: Generalized abdominal pain Providers: Yordy Edward MD Referring MD: Bonnie Cavanaugh MD Medicines: General Anesthesia Complications: No immediate complications. _ Procedure: After obtaining informed consent, the endoscope was passed under direct vision. Throughout the procedure, the patient's blood pressure, pulse, and oxygen saturations were monitored continuously. The Endoscope was introduced through the mouth, and advanced to the third part of duodenum. The upper GI endoscopy was accomplished without difficulty. The patient tolerated the procedure well. Findings: The examined duodenum was normal. Biopsies were taken with a cold forceps for histology, 2 samples. The entire examined stomach was normal. Biopsies were taken with a cold forceps for histology. The examined esophagus was normal with biopsies from the lower third. Impression: - Normal examined duodenum. Biopsied. - Normal stomach. Biopsied. - Normal esophagus. Recommendation: - Discharge patient to home (with parent). - Await pathology results. - Telephone GI clinic for pathology results in 1 week. - We recommend continue acid suppression but if we find no other pathology we will consider to focus therapy on functional pain and anxiety. Procedure Code(s): --- Professional --- 06922, Esophagogastrodu odenoscopy, flexible, transoral; with biopsy, single or multiple --- Technical --- 10672, Esophagogastrodu odenoscopy, flexible, transoral; with biopsy, single or multiple Diagnosis Code(s): --- Professional --- 789.07, Abdominal pain, generalized --- Technical --- 789.07, Abdominal pain, generalized CPT copyright 2013 [employer]. All rights reserved. The codes documented in this report are preliminary and upon patron attendant review may be revised to meet current compliance requirements. Dr. Yordy Edward Yordy Edward MD 10/27/2014 12:54 PM This report has been signed electronically. Number of Addenda: 0 Note Initiated On: 10/27/2014 6:01 AM Procedure Date: 10/27/2014 6:01:49 AM This report has been signed electronically. [facility] 10/27/2014 6:01 AM CDT Bonnie Alberto LIVESTOCK SHOWMAN-[facility] GI PROCEDURE ORDE PAMELA [facility] [address] [facility] [place] [address] * TISSUE TRANSGLUTAMINASE AB IGA (10/19/2014 12:23 PM CDT) Pathologist [facility] TTG Antibody IgA 1 <4 U/mL [facility] Comment: Value Interpretation <4 U/mL: No Antibody Detected >or=4 U/mL: Antibody Detected Test Performed at: [facility] [address] [place] [address] JONATHAN PRIDE MD,PHD Blood specimen (specimen) BLOOD SPECIMEN / Unknown 10/19/2014 12:23 PM CDT 10/19/2014 12:24 PM CDT Bonnie Alberto APRN-QUALITY PROCESS LEAD LAB - SEROLOGY OR DERABLES Performing Organization Address [facility] Co de Phone Number [address] [address] * C-REACTIVE PROTEIN (10/19/2014 12:23 PM CDT) [facility] C-Reactive Protein 0.12 <0.80 mg/dL [facility] Comment: Please be advised that patients taking Carboxypenicillins may exhibit falsely decreased C-Reactive Protein levels due to an analytical interference in this assay. Test Performed at: [employer] [facility] [place] [address] SALLIE MARES DO,MPH Blood specimen (specimen) BLOOD SPECIMEN / Unknown 10/19/2014 12:23 PM CDT 10/19/2014 12:24 PM CDT Bonnie Alberto APRN-[facility] LAB - CHEMISTRY O RDERABLES Performing Organization Address City/[facility] Co de Phone Number [facility] [id number] [place] [address] * IGA BLOOD (10/19/2014 12:23 PM CDT) [facility] IgA 231 70 - 432 mg/dL [facility] Comment: Test Performed at: [facility] [address] [facility] [place] [address] SALLIE MARES DO,MPH Blood specimen (specimen) BLOOD SPECIMEN / Unknown 10/19/2014 12:23 PM CDT 10/19/2014 12:24 PM CDT Bonnie Camarillo Dolly LIVESTOCK SHOWMAN-[facility] LAB - CHEMISTRY O RDERABLES Performing Organization Address City/[facility]/ZIP Co de Phone Number [facility] [address] [place] [address] * LIPASE BLOOD (09/30/2014 3:12 PM CDT) Lipase 17 10 - 220 U/L 09/30/2014 3:42 PM CDT [facility] Blood BLOOD SPECIMEN / Unknown Lab Venipuncture / Unknown 09/30/2014 3:12 PM CDT 09/30/2014 3:21 PM CDT Dejah Emery LIVESTOCK SHOWMAN-[facility] LAB - RETAIL STORE CLERK RY ORDERABLES Performing Organization Address [facility] Co de Phone Number [facility] [address] [place] [address] * AMYLASE BLOOD (09/30/2014 3:12 PM CDT) Amylase 54 5 - 65 U/L 09/30/2014 3:42 PM CDT [facility] Blood BLOOD SPECIMEN / Unknown Lab Venipuncture / Unknown 09/30/2014 3:12 PM CDT 09/30/2014 3:21 PM CDT eDjah Emery LIVESTOCK SHOWMAN-[facility] LAB - RETAIL STORE CLERK RY ORDERABLES Performing Organization Address [facility] de Phone Number [facility] [address] [place] [address] * XR ABD OBSTR SERIES (09/30/2014 2:57 PM CDT) Anatomical Region Laterality Modality Abdomen Radiographic Rochelle ging 10/01/2014 7:41 AM CDT Impressions 10/01/2014 7:43 AM CDT Nonobstructive bowel gas pattern. Moderate amount of retained stool. Narrative 10/01/2014 7:43 AM CDT EXAMINATION: Abdomen 2 views HISTORY: 13-year-old with abdominal pain for one year, worsening over the last month. COMPARISON: None available. FINDINGS: Supine and upright AP views of the abdomen demonstrate a nonobstructive bowel gas pattern. There is a moderate amount of retained stool throughout the colon. There is no evidence of free intraperitoneal gas. There are no pathologic calcifications. The lung bases are clear. The imaged osseous structures are intact. Procedure Note Gracie Ramirez MD - 10/01/2014 EXAMINATION: Abdomen 2 views HISTORY: 13-year-old with abdominal pain for one year, worsening over the last month. COMPARISON: None available. FINDINGS: Supine and upright AP views of the abdomen demonstrate a nonobstructive bowel gas pattern. There is a moderate amount of retained stool throughout the colon. There is no evidence of free intraperitoneal gas. There are no pathologic calcifications. The lung bases are clear. The imaged osseous structures are intact. IMPRESSION Nonobstructive bowel gas pattern. Moderate amount of retained stool. Dejah Emery LIVESTOCK SHOWMAN-QUALITY PROCESS LEAD DIAGNOSTIC IM AGING ORDERABLES Care Teams C D Still Operator Relationship Specialty Start Date End Date Saul Rivera MD PCP - General 10/23/20
--- OUTSIDE RECORDS SUMMARY | 2024-07-26 09:15 | XMS_ITS | Clinical Summary ---
Author Organization [facility] Address [address] [place] [address] Care Team Providers Care Systems Mechanic Name Role Phone Saul Rivera MD Primary Care Provider [phone] Source Comments [facility],non-owned Affiliates and Associated Physician Practices is amultiple site organization consisting of ambulatory clinics and hospital sitesin [place], [place], [place] and [place]. This disclosure is being madepursuant to the Care Everywhere program and may not contain all information available regarding this patient. 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 Overview (04/23/2018): [employer] #[id number] 02/19/18 severe chest/back>face on Augmentin, clinda, BPO; Rx isotretinoin pending InCortaEDMedTest DX baseline labs 03/02/18 start isotretinon at 11 [...] Date Nausea without vomiting 10/19/201402/2018 Overview (03/15/2015): Family History Medical History Relation Name Comments Asthma Maternal Grandmother Relation Name Status Comments Maternal Grandmother Social History Tobacco Use Types Packs/Day Years [...] 04/10/2021 10:54 AM CDT Plan of Treatment Health Maintenance Due Date Last Done Comments HIV SCREENING 2016 HPV VACCINE (1 - Male 3-dose series) 2016 MENINGOCOCCAL (Group B) VACC INE (1 of 2 - Standard) 2017 HEPATITIS C SCREENING 10/25/2019 DTAP/TDAP/TD VACCINES (1 - Tdap) 2020 HEPATITIS B VACCINE (1 of 3 - 19+ 3-dose series) 2020 COVID-19 VACCINE (1 - 2023-2 5 season) 2024 INFLUENZA VACCINE (#1) 2024 DEPRESSION SCREENING 06/15/2024 ZOSTER VACCINE (1 of 2) 10/30/2051 HIB VACCINE Aged Out No longer eligi ble based on patient's age to complete this topic MENINGOCOCCAL VACCINE Aged Out No mouna malgorzata eligible based on patient's age to complete this topic PNEUMOCOCCAL VACCINE Aged Out No long er eligible based on patient's age to complete this topic Care Teams Systems Mechanic Relationship Specialty Start Date End Date Saul Rivera MD PCP - General 10/23/20
--- OUTSIDE RECORDS SUMMARY | 2024-07-26 09:15 | XMS_ITS | Referral Summary ---
Author Organization [facility] Address [address] [place] [address] Care Team Providers Care Tig Welder Name Role Phone Saul Rivera MD Primary Care Provider Allergies No known active allergies Medications sertraline [...] Conjugate, Unspecified 05/03/2003 Tdap 02/25/2013 Varicella 03/05/2016,10/31/2002 Social History Tobacco Use Types Packs/Day Years Used Date Smoking Tobacco: Never Smokeless Tobacco: Never Tobacco Cessation:Counseling Given: Not Answered Personal Safety Answer Date Recorded Getting School Help Needed Denies 06/05 Sex and Gender Information Value Date Recorded Sex Assigned at Not on file Legal Sex Male 8:06 AM [employer]CEAN LIFEGUARD SPECIALIST Gender Identity Not on file Sexual Orientation Not on file Last Filed Vital Signs Vital Sign Reading Time Taken Comments Blood Pressure 104/60 07/31/2022 10:40 AM OCEAN LIFEGUARD SPECIALIST Pulse 86 07/31/2022 10:40 AM OCEAN LIFEGUARD SPECIALIST Temperature 36.4 C (97.5 F) 07/04/2022 4:25 PM OCEAN LIFEGUARD SPECIALIST Respiratory Rate 18 07/04/2022 4:25 PM OCEAN LIFEGUARD SPECIALIST Oxygen Saturation 100% 07/31/2022 10:40 AM OCEAN LIFEGUARD SPECIALIST Inhaled Oxygen Concentration - - Weight 67 kg (147 lb 9.6 oz) 07/31/2022 10:40 AM OCEAN LIFEGUARD SPECIALIST Height 187.5 cm (6' 1.82 ) 07/31/2022 10:[address] Body Mass Index 19.04 07/31/2022 10:40 AM OCEAN LIFEGUARD SPECIALIST Plan of Treatment Not on file Medical Devices Explanted Type Area Pharmacist Technician Device Identifier Shelf Expiration Date Model / Serial / Lot [employer] [id number] Reagan 18cm Strut Pectus Bar Support Stainless Steel - [id number] Implanted:Qty: 1 on 08/06/2021 by Francisco Berg MD at [facility] Explanted:Qty: 1 on 07/04/2022 by Deep Nova MD at [facility] N/A: Chest [employer] [id number] / / Insurance IDPA NotesFirst OOS BLUE [employer] CHOICE [facility] NotesFirst [facility] [employer] ACCESS OOS IDPA Advance Directives For more information, please contact: [phone] Documents on File Type Date Recorded Patient Online Producer Expl anation Advance Directives and Livin g [...] 2:50 PM 08/10/2021 5:02 PM Care Teams Tig Welder Relationship Specialty Start Date End Date Saul Rivera MD [address] [place] [address] PCP - General Family Medicine 08/14/20
--- OUTSIDE RECORDS SUMMARY | 2024-07-26 09:17 | XMS_ITS | Continuity of Care Document ---
Author Organization [facility] Address [address] [place] [address] Phone Care Team Providers Care Exceptional Children Teacher Name Role Phone Saul Rivera MD Unavailable Unavailable Allergies, Adverse Reactions, Alerts Substance Reaction Status Criticality No Known Allergies Active No Inform ation Medications Medication Instructions Dosage Effective Dates (start - stop) Status Comments Adderall 20 mg tablet take 1 tablet by o ral route every day before breakfast 20 MG - Active Zoloft 50 mg tablet take 1 tablet by ora l route every day 50 MG - Active Procedures Procedure Date PREV VISIT, EST, AGE 19- OFFICE/OUTPATIENT VISIT, EST OFFICE/OUTPATIENT VISIT, EST OFFICE/OUTPATIENT VISIT, EST OFFICE/OUTPATIENT VISIT, EST OFFICE/OUTPATIENT VISIT, EST OFFICE/OUTPATIENT VISIT, EST PREV VISIT, EST, AGE 18-39 OFFICE/OUTPATIENT VISIT, EST OFFICE/OUTPATIENT VISIT, EST OFFICE/OUTPATIENT VISIT, EST OFFICE/OUTPATIENT VISIT, EST OFFICE/OUTPATIENT VISIT, EST OFFICE/OUTPATIENT VISIT, EST PREV VISIT, NEW, AGE 18-39 OFFICE/OUTPATIENT VISIT, NEW Advance Directives Directive Yes / No Effective Date File Name No Information Encounters Encounter Description Practice Location Reason(s) For Visit Diagnoses Date Provider Providers Copied on Encounter [facility], [address] [place] [address] A, [place], [place], [address], [place] tel:[phone] [facility] No Information 3 Miguel Hughes. [address], [place], [place], [address] , [place]. tel:[phone] PREV VISIT, EST, AGE 18-39 [facility], [address], [place], [place], [address], [place] tel:[phone] [facility] physical (chief complaint) Encounter for general adult medical exam w abnormal findingsAcneAttenti on deficitGeneralized Anxiety DisorderHypokalemia Proteinuria 3 Miguel Hughes. [address], [place], [place], [address] , [place]. tel:[phone] OFFICE/OUTPA TIENT VISIT, [facility], [address], [place], [place], [address], [place] tel:[phone] [facility] ADD (chief complaint) acne1 (chief complaint) fever (chief complaint) AcneAttention deficitViral infection 3 Miguel Hughes. [address], [place], [place], [address] , [place]. tel:[phone] OFFICE/OUTPA TIENT VISIT, [facility], [address], [place], [place], [address], [place] tel:[phone] [facility] anxiety1 (chief complaint) Acne1 (chief complaint) ADD (chief complaint) Generalized Anxiety DisorderAcneAttenti on deficit 3 Miguel Hughes. [address], [place], [place], [address] , [place]. tel:[phone] OFFICE/OUTPA TIENT VISIT, [facility], [address], [place], [place], [address], [place] tel:[phone] [facility] anxiety1 (chief complaint) ADD (chief complaint) acne (chief complaint) pectus1 (chief complaint) Generalized Anxiety DisorderAttention deficitAcnePectus carinatum 3 Rivera Saul. [address], [place], [place], [address] , [place]. tel:[phone] OFFICE/OUTPA TIENT VISIT, EST [facility], [address], [place], [place], [address], [place] tel:[phone] [facility] ADD (chief complaint) anxiety1 (chief complaint) pectus1 (chief complaint) Attention deficitPectus carinatum 2 Rivera Saul. [address], [place], [place], [address] , [place]. tel:[phone] OFFICE/OUTPA TIENT VISIT, EST [facility], [address], [place], [place], [address], [place] tel:[phone] [facility] ADD (chief complaint) Attention deficit 2 Rivera Saul. [address], [place], [place], [address] , [place]. [phone] PREV VISIT, EST, AGE 18-39 [facility], [address], [place], [place], [address], [place] tel:[phone] [facility] physical (chief complaint) Encounter for general adult medical exam w abnormal findingsAcneGeneral ized Anxiety DisorderAttention deficitPectus carinatum 2 Rivera Saul. [address], [place], [place], [address] , [place]. tel:[phone] OFFICE/OUTPA TIENT VISIT, EST [facility], [address], [place], [place], [address], [place] tel:[phone] [facility] anxiety1 (chief complaint) ADD (chief complaint) pectus1 (chief complaint) Pectus carinatumEmphysemaG eneralized Anxiety DisorderAttention deficit 2 Rivera Saul. [address], [place], [place], [address] , [place]. tel:[phone] OFFICE/OUTPA TIENT VISIT, [facility], [address], [place], [place], [address], [place] tel:[phone] [facility] Acne (chief complaint) pectus1 (chief complaint) Pectus carinatumEmphysemaA cne 1 Miguel Hughes. [address], [place], [place], [address] , [place]. [phone] OFFICE/OUTPA TIENT VISIT, [facility], [address], [place], [place], [address], [place] tel:[phone] [facility] pectus (chief complaint) proteinuri a1 (chief complaint) truncal acne (chief complaint) AcnePectus carinatumProteinuri aDyspnea 1 Miguel Hughes. [address] [facility] [address] [facility] [address], [place], [place], [address] , [place]. tel:[phone] OFFICE/OUTPA TIENT VISIT, [facility], [address], [place], [place], [address], [place] tel:[phone] [facility] pectus (chief complaint) proteinuri a1 (chief complaint) Pectus carinatumProteinuri a 0 1 Miguel Hughes. [address], [place], [place], [address] , [place]. [phone] OFFICE/OUTPA TIENT VISIT, [facility], [address], [place], [place], [address], [place] tel:[phone] [facility] low D (chief complaint) low kcl (chief complaint) proteinuri a1 (chief complaint) pectus1 (chief complaint) Pectus carinatumProteinuri aHypokalemiaVitamin D deficiency, unspecified Mar-0 - 1 Miguel Hughes. [address], [place], [place], [address] , [place]. tel:[phone] PREV VISIT, NEW, AGE 18-39 [facility], [address], [place], [place], [address], [place] tel:[phone] [facility] physical (chief complaint) Encounter for general adult medical exam w abnormal findingsPectus carinatumDyspneaGen eralized Anxiety DisorderAttention deficitPolyuria 1 Miguel Hughes. [address], [place], [place], [address] , [place]. tel:[phone] Family History Family Member Type Diagnosis Age At Onset Mother Problem lupus Father Problem of OD Brother Problem Alive and well Payers Payer name Insurance type Covered green party ID Authoriza tion(s) No Information Social History Type Description Quantity Date Captured Comments Alcohol Use Details Unknown Caffeine Use Details Unknown Tobacco Use Status No Information Smoking Status No Information Sex Male Chief Complaint And Reason For Visit No Information Plan Of Treatment Date Type Action Status Referral Ordered: Dermatology (related to Acne) ordered Referral Referred To: Roxy PAYTON, Tiffany Chang [id number] [facility]
[address] [place], [place], [address] Ordered: Referrals: Tiffany Ramsey MD. Evaluate and treat ordered Referral Ordered: Dermatology (related to Acne) ordered Referral Ordered: SLEEP STUDY, ATTENDED ordered Referral Ordered: DOPPLER ECHO EXAM, HEART ordered Referral Ordered: Referrals: Dermatology. Evaluate and treat ordered Referral Ordered: Vic Singh -[facility] : Internal Medicine : Nephrology (related to Proteinuria) ordered Referral Referred To: Vic Singh [address] [place], [place], [id number] Ordered: Referrals: [facility] Phys[facility] : Internal Medicine : Nephrology. Vic Singh. Evaluate and treat ordered Referral Ordered: [facility] KIDNEY ordered Referral Ordered: Cardiac Surgery (related to Pectus carinatum) ordered Referral Ordered: CT THORAX W/DYE ordered Referral Ordered: Referrals: Cardiac Surgery. Evaluate and treat ordered History Of Present Illness Encounter Date Complaint History Of Prese nt Illness physical Pt need annual p hysical. Pt has chronic anxiety and depression pt doing well with zoloft Pt denies any suicidal or homicidal thought. Pt denies any crying spells. Patient has ADD. Patient has inattentive type. Patient feels scatterbrained. Patient feel poor focus and difficulty completing tasks. Patient states that Adderall is helping with symptoms. Patient feels more focused. Pt feels more energy. Patient denies any headache, dry mouth, headache, chest pain. Patient denies any appetite loss. Pt failed concerta. Pt has cystic acne on chest area and he has danish with dermatology soon. Pt has history of low kCL and proteinuria. Pt denies any flank pain Pt has normal UO fever Additional infor mation: Pt c/o fever as high as 102, ,sore throat and productive cough for 5 days. Pt denies any headache, sob. Pt denies any dysphagia. Pt denies any rash or sick contact. acne1 Pt has cystic ac ne around face and chest area Pt failed abx. Pt has not heard from dermatology yet ADD Pt has ADD. Pt s tates that concerta made him feeling numbness around area .Pt stopped concerta and his area numbness resolved. ADD Pt has ADD Pt do ing ok with concerta PRn Pt feels more focused Pt feels more energy Pt denies any side effects. However pt states that concerta usually works for the first week then does not work anymore after the 1st week. Acne1 Pt has chronic c ystic acne Pt failed abx and topical. Pt wants to see dermatology. anxiety1 Pt has chronic a nxiety and depression Pt doing ok with zoloft Pt denies any suicidal or homicidal thought Pt denies any crying spells pectus1 Pt has pectus ca rinatum s/p surgery and he is doing ok .Pt still has mild chest concave but much better Pt denies any sob or chest pain acne Additional infor mation: Pt has some cystic acne around chest area Pt wants refill of minocycline. ADD Pt has ADD Pt do ing ok with concerta PRn Pt feels more focused Pt feels more energy Pt denies any side effects anxiety1 Pt has chronic a nxiety and depression Pt takes zoloft and doing ok Pt is out of zoloft for several days Pt wants it refilled Pt doing well with zoloft P tdenies any suicidal or homicidal thought pt denies any crying spells ADD Pt has ADD Pt st arted concerta last month which really helped his ADD symptoms. Pt is off Wellbutrin and also strattera. Pt feels more focused Pt states that the 18 mg initially helped but he notices that it helps less and less towards the latter of the month. Pt denies any side effects. anxiety1 Pt has chronic a nxiety and depression Pt takes zoloft and doing ok pt denies any suicidal or homicidal thought Pt denies any crying spells. pectus1 Pt had surgery d one and pectus fixed. He denies any chest pain or sob ADD Patient has ADD. Patient has inattentive type. Patient feels scatterbrained. Patient feel poor focus and difficulty completing tasks. Pt has been taking wellbutrin but he has not noticed much improvement of his ADD symptoms Pt also failed strattera in the past physical Pt needs annual physical. Pt is s/p Ravitch procedure repairing pectus carinatum. Pt has been doing well. Pt denies any chest pain or sob. Pt no longer wears any chest binder. Pt is happy with procedure. Pt also has recurrent facial acne. Pt used to see special education instructor but he has not seen special education instructor for more than one year. Pt wants to try abx again. Pt also has chronic anxiety and depression Pt takes zoloft and doing ok. Pt denies any suicidal or homicidal thought. Pt denies any crying spells. Pt also has ADHD. Pt has been taking atomoxetine but he does not think it helps his ADHD symptoms at all. He has been out of atomoxetine for more than 10 days. Pt denies any other complaints anxiety1 Pt has chronic a nxiety and depression Pt takes zoloft and doing ok Pt denies any suicidal or homicidal thought .Pt denies any crying spells. pectus1 Pt has severe pe ctus carinatum. Pt denies any chest pain. Pt does feel sob sometimes, especially with exertion. Pt denies any palpitation Pt saw CT surgeon who plans for carinatum surgery soon. Pt also saw a psychiatrist who cleared him mentally. 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 Pt was referred to pulmonary but he is kind of confused about seeing a loss prevention specialist vs PFT. Pt states that he saw loss prevention specialist but nothing was done. He states that the CT surgeon told him to do self cardiac exercise for several months before surgery. Pt uses albuterol 1-2 per week. Pt denies any wheezing ADD Pt has ADD. Pt h as difficulty with focus and concentration. Pt takes strattera and doing ok. pt needs refill. Acne Additional infor desiree: Pt has chronic cystic acne around chest area. Pt is seeing dermatology and he is on clindamycin topical and also minocycline now. Pt has some old scarring. Pt doing ok. pectus Pt has pectus ca rinatum. Pt denies any chest pain. Pt does feel sob sometimes, especially with exertion. Pt denies any chest pain. Pt denies any palpitation Pt saw CT surgeon who plans for carinatum surgery soon after cardiac echo and PFTs. Pt also saw a psychiatrist who cleared him mentally. 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 truncal acne Pt has chronic c ystic acne on upper back and front of chest area with scarring. Pt used to wear chest brace which he sweats under it which causes worsening intermittent flare up of the cystic acne. Pt was told by CT surgeon to see a special education instructor to get the acne treated before the carinatum repair. proteinuria1 Pt has proteinur ia. Pt has right kidney hydronephrosis. Pt denies any flank pain or urinary symptoms ,Pt saw nephrology who ordered a cT of abdomen and pelvis to look into any obstructions, etc. Pt has normal UO pectus Pt has pectus ca rinatum with chronic chest wall pain Pt wears a chest binder now. Pt does feel sob sometimes, especially with exertion. Pt denies any chest pain. Pt denies any palpitation Pt saw CT surgeon who plans for carinatum surgery soon after cardiac echo and PFTs. Pt also saw a psychiatrist who cleared him mentally. proteinuria1 Pt has mild trac e proteinuria ,Pt had normal renal function. Pt denies any UTI symptoms. Pt denies any flank pain. pectus Pt has severe pe ctus carinatum. Pt has appointment with pectus clinic at [facility] in 10 days, Pt denies any sob or chest pain pectus Pt has severe pe ctus carinatum. Pt had chest CT done which was benign except for pectus ,Pt does notices some sob and MS chest pain proteinuria Pt has trace pro teinuria Pt denies any UTi symptoms low kcl Pt has low kcl P t denies any nausea, vomiting, diarrhea, palpitation, etc low D Pt has low D. physical Pt needs annual physical. Pt has chronic anxiety and depression with ADHD. Pt was seeing psychiatrist out of town and he is on zoloft, strattera and propranolol PRn for above symptoms and he is doing well. Pt denies any suicidal or homicidal thought. Pt denies any crying spells Pt has chronic pectus carinatum since the age of 13. Since then, he notices gradually worsening of the protrusion of the breast bone Pt feels some sob and also chronic pain around the breast bone. Pt feels that he has to catch his breath all the time. Pt denies any cardiac type of chest pain Pt had negative cardiac echo two years ago pt has been wearing a brace for the breast bone which is causing skin irritation. Pt states that the breast bone deformity is causing physically and emotional trauma to him daily. Pt also notices some frequent thirsty and frequent urination for long time Instructions Date Instruction Additional Infor desiree No Information Assessments Type Assessment Date No Information
== END 2024-07-26 09:22 | disposition home or self-care (01) ==
PROVIDERS: Emergency Provider Nurse Practitioner
DX: J06.9 Acute upper respiratory infection, unspecified (principal); Z20.822 Contact with and (suspected) exposure to COVID-19
CPT/HCPCS: 87081; 87426; 87804; 87880; 99213; G0463

== ENCOUNTER 2024-07-31 00:21 | Emergency (ER) | payer BC, SELFPAY ==
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
--- NOTE | ~2024-07-31 | XR_ITS ---
HISTORY: post-reduction COMPARISON: Previous study performed approximately 1 hour earlier TECHNIQUE: 3 views of the left hand were performed. FINDINGS: Redemonstration of a acute fracture of the midshaft of the fifth metacarpal with palmar and ulnar dis placement of the fracture fragments. Minimally improved alignment post reduction. Overlying casting material precludes fine bony detail. IMPRESSION: Improved alignment post reduction, as detailed above. Reviewed, dictated and finalized at location A. OTIONS ASSISTANT SALES MARKETING
--- OUTSIDE RECORDS SUMMARY | 2024-07-31 00:23 | XMS_ITS | Clinical Summary ---
Author Organization [facility] Address [address] [place] [address] Care Team Providers Care Special Investigation Unit Investigator Name Role Phone Saul Rivera MD Primary Care Provider [phone] Source Comments [facility],non-owned Affiliates and Associated Physician Practices is amultiple site organization consisting of ambulatory clinics and hospital sitesin [place], [place]. This disclosure is being madepursuant to the Care Everywhere program and may not contain all information available regarding this patient. Last updated 18.[facility] Allergies No known active allergies Medications * [...] depression/on medication Acne conglobata 02/19/2018 Overview (04/23/2018): [facility] #[id number] 02/19/18 severe chest/back>face on Augmentin, clinda, BPO; Rx isotretinoin pending [employer] baseline labs 03/02/18 start isotretinon at 10 [...] age to complete this topic Care Teams Special Investigation Unit Investigator Relationship Specialty Start Date End Date Saul Rivera MD PCP - General 10/23/20
--- OUTSIDE RECORDS SUMMARY | 2024-07-31 00:23 | XMS_ITS | Referral Summary ---
Author Organization [facility] Address [address] [place] [address] Care Team Providers Care Manager Nursing Name Role Phone Saul Rivera MD Primary Care Provider [phone] Source Comments [facility],non-owned Affiliates and Associated Physician Practices is amultiple site organization consisting of ambulatory clinics and hospital sitesin [place], [place], [place] and [place]. This disclosure is being madepursuant to the Care Everywhere program and may not contain all information available regarding this patient. Last updated 18.[facility] Allergies No known active allergies Medications * [...] depression/on medication Acne conglobata 02/19/2018 Overview (04/23/2018): [employer] #[id number] 02/19/18 severe chest/back>face on Augmentin, clinda, BPO; Rx isotretinoin pending [employer] baseline labs 03/02/18 start isotretinon at 10 [...] of Treatment Not on file Care Teams Manager Nursing Relationship Specialty Start Date End Date Saul Rivera MD PCP - General 10/23/20
--- OUTSIDE RECORDS SUMMARY | 2024-07-31 00:23 | XMS_ITS | Clinical Summary ---
Author Organization [facility] Address [address] [place] [address] Care Team Providers Care Maintenance And Utilities Supervisor Name Role Phone Saul Rivera MD Primary [...] on file Legal Sex Male 8:06 AM CHIEF ANALYTICS OFFICER Gender Identity Not on file Sexual Orientation Not on file Obstetrics History Last Filed Vital Signs Vital Sign Reading Time Taken Comments Blood Pressure 104/60 07/31/2022 10:40 AM CHIEF ANALYTICS OFFICER Pulse 86 07/31/2022 10:40 AM CHIEF ANALYTICS OFFICER Temperature 36.4 C (97.5 F) 07/04/2022 4:25 PM CHIEF ANALYTICS OFFICER Respiratory Rate 18 07/04/2022 4:25 PM CHIEF ANALYTICS OFFICER Oxygen Saturation 100% 07/31/2022 10:40 AM CHIEF ANALYTICS OFFICER Inhaled Oxygen Concentration - - Weight 67 kg (147 lb 9.6 oz) 07/31/2022 10:40 AM CHIEF ANALYTICS OFFICER Height 187.5 cm (6' 1.82 ) 07/31/2022 10:[address] Body Mass Index 19.04 07/31/2022 10:40 AM CHIEF ANALYTICS OFFICER Plan of Treatment Health Maintenance Due Date [...] 03/05/2016, 10/31/2002 Medical Devices Explanted Type Area Hook And Eye Attacher Device Identifier Shelf Expiration Date Model / Serial / Lot [employer] [id number] Reagan 18cm Strut Pectus Bar Support Stainless Steel - [id number] Implanted:Qty: 1 on 08/06/2021 by Francisco Berg MD at [facility] Explanted:Qty: 1 on 07/04/2022 by Deep Nova MD at [facility] N/A: Chest [employer] [id number] / / Insurance [email or web address] [facility] [email or web address] [place] [email or web address] OOS [email or web address] OOS IDPA Advance Directives For more information, please contact: [phone] Documents on File Type Date Recorded Patient Mold Filler Plastic Dolls Expl anation Advance Directives and Livin g [...] 2:50 PM 08/10/2021 5:02 PM Care Teams Maintenance And Utilities Supervisor Relationship Specialty Start Date End Date Saul Rivera MD [address] [place] [address] PCP - General Family Medicine 08/14/20
--- OUTSIDE RECORDS SUMMARY | 2024-07-31 00:23 | XMS_ITS | Patient Health Summary ---
Author Organization [facility] Address [address] [facility] [place] [address] Care Team Providers Care Fire Safety Inspector Name Role Phone Saul Rivera MD Primary Care Provider [phone] Note from [facility],non-owned Affiliates and Associated Physician Practices is amultiple site organization consisting of ambulatory clinics and hospital sitesin [place], [place], [place] and [place]. This disclosure is being madepursuant to the Care Everywhere program and may not contain all information available regarding this patient. Last updated 18.[facility] Allergies No known active allergies Medications * [...] RENAL SCAN W DRUG (04/26/2021 11:33 AM SEED CLEANER) Anatomical Region Laterality Modality Abdomen Nuclear Medicine 04/26/2021 11:0 0 AM SEED CLEANER Impressions 04/26/2021 1:03 PM SEED CLEANER Impression: 1. Mildly hydronephrotic right kidney no [...] 1:03 PM . Narrative 04/26/2021 1:03 PM SEED CLEANER Procedure: Renal blood flow and function with [...] D.O. on 04/26/2021 1:03 PM . [facility] ORDERABLES * URINALYSIS AUTO - POINT OF CARE (AMB) SLU (04/10/2021 11:42 AM CDT) Glucose UA neg Bilirubin UA POCT neg Ketones UA POCT neg Specific [place] UA 1.010 Blood Urine POCT neg pH UA 6.0 Protein UA neg Urobilinogen UA 0.2 mg/dL Nitrite UA neg WBC UA neg Urine URINE / Unknown 04/10/2021 1 1:42 AM CDT Brandy Carroll DO LAB - POINT OF CAR E ORDERABLES * URINALYSIS W/MICROSCOPIC NO CULTURE (01/08/2021 12:26 PM CDT) Color UA YELLOW YELLOW [facility] Appearance CLEAR CLEAR [facility] Specific [place] UA 1.005 1.001 - 1.035 [facility] pH [...] SEEN /LPF [facility] Comment: Test Performed at: [facility] [address] [place] [id number] SALLIE MARES DO,MPH Urine URINE SPECIMEN OBTAINED BY CLEAN CATCH PROCEDURE / Unknown 01/08/2021 12:26 PM CDT 01/08/2021 12:27 PM CDT Kayli Orozco MD LAB - URINALYSIS ORD ERABLES [facility] [address] [place] [address] * RENAL FUNCTION PANEL (01/08/2021 12:26 PM [...] 5.1 g/dL [facility] Comment: Test Performed at: [facility] [address] [facility] [address] SALLIE MARES DO,MPH Blood BLOOD SPECIMEN / Unknown 01/08/2021 12:26 PM CDT 01/08/2021 12:27 PM CDT Kayli Orozco MD LAB - CHEMISTRY ORDE RABVERITO Performing Organization Address [facility] de Phone Number [facility] [address] [place] [address] * (ABNORMAL) PROTEIN CREATININE RATIO URINE RANDOM [...] Comment: REPORT COMMENT: FASTING:NO Test Performed at: [facility] [address] [address] [facility] [address] SALLIE MARES DO,MPH Urine URINE SPECIMEN OBTAINED BY CLEAN CATCH PROCEDURE / Unknown 01/08/2021 12:26 PM CDT 01/08/2021 12:27 PM CDT Kayli Orozco MD LAB - URINE CHEMISTR Y ORDERABLES Performing Organization Address [facility] Co de Phone Number [facility] [address] [place] [address] * MICROALB/CREAT RATIO URINE RANDOM PANEL (12/12/2020 [...] within a diagnostic category. Test Performed at: [address] [place] [address] SALLIE MARES DO,MPH 12/12/2020 2:07 PM CDT 12/12/2020 2:08 PM CDT Kayli Orozco MD LAB - URINE CHEMISTR Y ORDERABLES [facility] [address] [place] [address] * (ABNORMAL) PROTEIN ELECTROPH REFLX ROBERT UR TIMED (12/07/2020 3:11 PM CDT) Creatinine 24 Hour Urine 1.32 0.50 - 2.15 g/24 h [facility] Protein 24 Hour Urine 476(H) < OR = 114 mg/g creat [facility] Protein/Creatinine Ratio 0.476(H) < OR = 0.114 mg/mg creat [facility] Protein 24 Hour Urine 630(H) <150 mg/24 h [facility] Albumin 100 % [facility] Alpha-1 Globulin 0 % [facility] Tjlfo-4-Ugpmkanz 0 % [facility] Beta-Globulin 0 % [facility] Gamma Globulin 0 % [facility] Abnormal Protein Band [facility] Abnormal Protein Band 2 [facility] Abnormal Protein Band 3 [facility] Interpretation [facility] Comment: Agarose electrophoresis of urine reveals albumin. No abnormal protein is observed. REPORT COMMENT: FASTING:NO PATIENT UNABLE TO VOID; ADVISED TO RETURN FOR COLLECTION. Test Performed at: [employer] [employer] [facility] [employer] [id number] SALLIE MARES DO,MPH 12/07/2020 3:11 PM CDT 12/08/2020 3:05 AM CDT Kayli Orozco MD LAB - URINE CHEMISTR Y ORDERABLES [facility] [address] [place] [address] * US RETROPERITONEAL COMPLETE (11/27/2020 5:01 PM [...] as needed. Dictated by Radames Medrano MD (residential lawn specialist). I, Dr. NIKA SLATER M.D. have personally [...] as needed. Dictated by Radames Medrano MD (residential lawn specialist). Dr. NIKA Coon M.D. have personally reviewed [...] thoracolumbar levocurvature. Dictated by Lawson Andres MD (residential lawn specialist). Gracie Coon, have personally reviewed the images and I agree with this report. Reading Radiologist: Gracei Ramirez MD on 09/01/2018 at 12:31 PM Narrative 09/01/2018 12:31 PM CDT EXAMINATION: Entire spine, upright PA and lateral views HISTORY: Pectus carinatum COMPARISON: No prior study is available for comparison. FINDINGS: AP and lateral views of the entire spine were obtained with the patient standing. There are 12 rib-bearing thoracic vertebrae and 5 fxo-xsz-ulsawgi lumbar vertebrae. No segmentation anomalies are identified. [...] are 12 rib-bearing thoracic vertebrae and 5 srw-izd-oomwwag lumbar vertebrae. No segmentation anomalies are identified. [...] thoracolumbar levocurvature. Dictated by Lawson Andres MD (residential lawn specialist). I, Gracie Ramirez, have personally reviewed the images and I agree with this report. Reading Radiologist: Gracie Raimrez MD on 09/01/2018 at 12:31 PM Tarik [...] Comment: REPORT COMMENT: FASTING:YES Test Performed at: [place] [address] SALLIE MARES DO,MPH 04/09/2018 2:16 PM CDT 04/09/2018 2:16 PM CDT Janki Gupta MD LAB - HEMATOLOGY O RDERABLES Performing Organization Address [facility] de Phone Number [facility] [address] [place] [address] * TRIGLYCERIDES BLOOD (04/09/2018 2:16 PM CDT) Only the most recent of2 resultswithin the time period is included. Triglycerides 75 <90 mg/dL [facility] Comment: Test Performed at: [place] [address] SALLIE MARES DO,MPH 04/09/2018 2:16 PM CDT 04/09/2018 2:16 PM CDT Janki Gupta MD LAB - CHEMISTRY OR DERABLES Performing Organization Address [facility] Co de Phone Number [facility] [address] [place] [address] * COMPREHENSIVE METABOLIC PANEL (04/09/2018 2:16 PM [...] 46 U/L [facility] Comment: Test Performed at: [facility] [address] [place] [address] SALLIE MARES DO,MPH 04/09/2018 2:16 PM CDT 04/09/2018 2:16 PM CDT Janki Gupta MD LAB - CHEMISTRY OR DERABLES [facility] [address] [place] [address] * ECHO CONSULT - PEDIATRIC (02/03/2018 2:00 PM CDT) 02/03/2018 2:00 PM CDT Narrative Procedure Note Luigi Haile MD - 02/03/2018 [address] [place] [address] Fax Non-Congenital Transthoracic Report Pat.Name: RAJAT DENTON [place].ID: [id number] St.Date: 02/03/2018 Exam Time: 2:00:00 PM Study Type:Non-Congenital TTE Height: 158.6cm Weight: 65kg BSA: 1.67 m2 Age: 5 2000,17Y Sex: MALE BP: 91/37 Sonogrphr: Cierra Kincaid MATT Pat. Stat.:Outpatient CPT - 4: 90685 Reason for Study:Pectus carinatum, Evaluate for Marfan's History / Clinical:Echocardiogram to evaluate for Marfan's Procedures:2D Non-congenital, Doppler Complete, Color Flow Visit ID: [id number] SUMMARY: Impression: Technically difficult study due to [...] 02/03/2018 03:14 PM Poonam Haile MD Shivani Chin MD ECHO ORDERABLES Performing Organization Address City/State/[facility] Co de Phone Number [facility] [address] [place] [address] * XR CHEST 2VW (01/28/2018 12:56 PM [...] CDT) Case Report Surgical Pathology Report Case: [id number] Authorizing Provider: Yordy Edward MD Collected: 10/27/2014 12:44 PM Ordering Location: ENDOSCOPY SERVICES Received: 10/27/2014 01:29 PM Pathologist: Mariaelena Borden MD Specimens: A) - Duodenal Biopsy B) - Stomach Biopsy C) - Esophageal Biopsy 10/30/2014 9:38 AM [facility] Final Diagnosis A. DUODENUM, BIOPSY: - NO HISTOPATHOLOGIC ABNORMALITY B. STOMACH, BIOPSY: - MILD CHRONIC INFLAMMATION C. ESOPHAGUS, BIOPSY: - NO HISTOPATHOLOGIC ABNORMALITY 10/30/2014 9:38 AM [facility] Clinical History The patient is a 13-year-old boy with abdominal pain who underwent upper endoscopy, the findings of which were found to be normal. 10/30/2014 9:38 AM [facility] Gross Description The specimens are received [...] as C1. (LAZARO/aurora) 10/30/2014 9:38 AM T [facility] Microscopic Description 9 H&E [...] unremarkable squamous mucosa. 10/30/2014 9:38 AM T [facility] Disclaimer The performance characteristics of all immunohistochemical and indirect immunofluorescence stains (if any) cited in this report were determined by the [facility] of [facility] in compliance with CLIA `88 regulations. Some of these tests rely on the use of analyte-specific reagents and are subject to specific labeling requirements by the FDA. Such tests were developed by the [facility] and have not been cleared or approved by the FDA. The FDA has determined that such clearance or approval is not necessary. These tests are used for clinical purposes and should not be regarded as investigational or for research. This case has been personally reviewed and interpreted by the attending (teaching) pathologist. 10/30/2014 9:38 AM T [facility] Pathology/Cytology ESOPHAGEAL BIOPSY SPECIMEN / Unknown 10/27/2014 12:44 PM CDT 10/27/2014 1:29 PM CDT Miscellaneous samples (specimen) BIOPSY OF STOMACH / Unknown 10/27/2014 12:44 PM CDT 10/27/2014 1:29 PM CDT Miscellaneous samples (specimen) ESOPHAGEAL BIOPSY SPECIMEN / Unknown 10/27/2014 12:44 PM CDT 10/27/2014 1:29 PM CDT Yordy Edward MD LAB - PATHOLOGY/CYT OLOGY ORDERABLES Performing Organization Address City/State/[facility] Co de Phone Number [facility] [address] [place] [address] * HELICOBACTER PYLORI UREASE (STL) (10/27/2014 12:41 PM CDT) Helicobacter pylori Urease Initial Negative Negative 10/28/2014 2:28 PM CDT [facility] Helicobacter pylori Urease Final Negative Negative 10/28/2014 2:28 PM CDT [facility] Microbiology GASTRIC ANTRAL BIOPSY SPECIMEN / Unknown 10/27/2014 12:41 PM CDT 10/27/2014 12:59 PM CDT Bonnie Alberto RECRUITER ACCOUNT MANAGER-BOBBIN CLEANER LAB - MICROBIOLOG Y ORDERABLES Performing Organization Address City/State/[facility] de Phone Number [facility] [address] [place] [address] * EGD (10/27/2014 6:01 AM CDT) Report Endoscopy POC _ Patient Name: Rajat Denton Gender: Male Date of : 2000 Age: 13 Admit Type: Outpatient Attending MD: Yordy Edward MD Order #: [id number] _ Procedure: Upper GI endoscopy Indications: Generalized [...] and anxiety. Procedure Code(s): --- Professional --- 12142, Esophagogastrodu odenoscopy, flexible, transoral; with biopsy, single or multiple --- Technical --- 29323, Esophagogastrodu odenoscopy, flexible, transoral; with biopsy, single or multiple Diagnosis Code(s): --- Professional --- 789.07, Abdominal pain, generalized --- Technical --- 789.07, Abdominal pain, generalized CPT copyright 2013 [employer]. All rights reserved. The codes documented in this report are preliminary and upon staff interpreter review may be revised to meet current compliance requirements. Dr. Yordy Edward Yordy Edward MD 10/27/2014 12:54 PM This report has been signed electronically. Number of Addenda: 0 Note Initiated On: 10/27/2014 6:01 AM Procedure Date: 10/27/2014 6:01:49 AM This report has been signed electronically. [facility] 10/27/2014 6:01 AM CDT Bnonie Alberto RECRUITER ACCOUNT MANAGER-[facility] GI PROCEDURE ORDE PAMELA [facility] [address] [facility] [place] [address] * TISSUE TRANSGLUTAMINASE AB IGA (10/19/2014 12:23 PM CDT) Pathologist [facility] TTG Antibody IgA 1 <4 U/mL [facility] Comment: Value Interpretation <4 U/mL: No Antibody Detected >or=4 U/mL: Antibody Detected Test Performed at: [employer] [address] [place] [address] JONATHAN PRIDE MD,PHD Blood specimen (specimen) BLOOD SPECIMEN / Unknown 10/19/2014 12:23 PM CDT 10/19/2014 12:24 PM CDT Bonnie Alberto APRN-BOBBIN CLEANER LAB - SEROLOGY OR DERABLES Performing Organization Address [facility] Co de Phone Number [address] [address] * C-REACTIVE PROTEIN (10/19/2014 12:23 PM CDT) [facility] C-Reactive Protein 0.12 <0.80 mg/dL [facility] Comment: Please be advised that patients taking Carboxypenicillins may exhibit falsely decreased C-Reactive Protein levels due to an analytical interference in this assay. Test Performed at: [employer] [facility] [place] [address] SALLIE MARES DO,MPH Blood specimen (specimen) BLOOD SPECIMEN / Unknown 10/19/2014 12:23 PM CDT 10/19/2014 12:24 PM CDT Bonnie Alberto APRN-ALBINA LAB - CHEMISTRY O RDERABLES Performing Organization Address City/[facility] Co de Phone Number [facility] [id number] [place] [address] * IGA BLOOD (10/19/2014 12:23 PM CDT) [facility] IgA 231 70 - 432 mg/dL [facility] Comment: Test Performed at: [facility] [address] [facility] [place] [address] SALLIE MARES DO,MPH Blood specimen (specimen) BLOOD SPECIMEN / Unknown 10/19/2014 12:23 PM CDT 10/19/2014 12:24 PM CDT Bonnie Camarillo Dolly RECRUITER ACCOUNT MANAGER-[facility] LAB - CHEMISTRY O RDERABLES Performing Organization Address City/[facility]/ZIP Co de Phone Number [facility] [address] [place] [address] * LIPASE BLOOD (09/30/2014 3:12 PM CDT) Lipase 17 10 - 220 U/L 09/30/2014 3:42 PM CDT [facility] Blood BLOOD SPECIMEN / Unknown Lab Venipuncture / Unknown 09/30/2014 3:12 PM CDT 09/30/2014 3:21 PM CDT Dejah Emery RECRUITER ACCOUNT MANAGER-[facility] LAB - MOISTURE METER OPERATOR RY ORDERABLES Performing Organization Address [facility] Co de Phone Number [facility] [address] [place] [phone] * AMYLASE BLOOD (09/30/2014 3:12 PM CDT) Amylase 54 5 - 65 U/L 09/30/2014 3:42 PM CDT [facility] Blood BLOOD SPECIMEN / Unknown Lab Venipuncture / Unknown 09/30/2014 3:12 PM CDT 09/30/2014 3:21 PM CDT Dejah Emery RECRUITER ACCOUNT MANAGER-[facility] LAB - MOISTURE METER OPERATOR RY ORDERABLES Performing Organization Address [facility] de Phone Number [facility] [address] [place] [phone] * XR ABD OBSTR SERIES (09/30/2014 2:57 [...] Moderate amount of retained stool. Dejah Emery RECRUITER ACCOUNT MANAGER-BOBBIN CLEANER DIAGNOSTIC IM AGING ORDERABLES Care Teams Fire Safety Inspector Relationship Specialty Start Date End Date Saul Rivera MD PCP - General 10/23/20
--- OUTSIDE RECORDS SUMMARY | 2024-07-31 00:23 | XMS_ITS | Continuity of Care Document ---
Author Organization [facility] Address [address] [place] [address] Phone Care Team Providers Care Grave Digger Name Role Phone Saul Rivera MD Unavailable [...] Diagnoses Date Provider Providers Copied on Encounter [facility], [address] [place] [address] A, [place], [place], [address], [place] tel:[phone] [facility] No Information 3 Miguel Hughes. [address], [place], [place], [address] , [place]. tel:[phone] PREV VISIT, EST, AGE 18-39 [facility], [address], [place], [place], [address], [place] tel:[phone] [facility] physical (chief complaint) Encounter for general adult medical exam w abnormal findingsAcneAttenti on deficitGeneralized Anxiety DisorderHypokalemia Proteinuria 3 Miguel Hughes. [address], [place], [place], [address] , [place]. tel:[phone] OFFICE/OUTPA TIENT VISIT, [facility] [place], [address], [place], [place], [address], [place] tel:[phone] [facility] ADD (chief complaint) acne1 (chief complaint) fever (chief complaint) AcneAttention deficitViral infection 3 Miguel Hughes. [address], [place], [place], [address] , [place]. tel:[phone] OFFICE/OUTPA TIENT VISIT, [facility] [place], [address], [place], [place], [address], [place] tel:[phone] [facility] anxiety1 (chief complaint) Acne1 (chief complaint) ADD (chief complaint) Generalized Anxiety DisorderAcneAttenti on deficit 3 Miguel Hughes. [address], [place], [place], [address] , [place]. tel:[phone] OFFICE/OUTPA TIENT VISIT, [facility] [place], [address], [place], [place], [address], [place] tel:[phone] [facility] anxiety1 (chief complaint) ADD (chief complaint) acne (chief complaint) pectus1 (chief complaint) Generalized Anxiety DisorderAttention deficitAcnePectus carinatum 3 Rivera Saul. [address], [place], [place], [address] , [place]. tel:[phone] OFFICE/OUTPA TIENT VISIT, EST [facility], [address], [place], [place], [address], [place] tel:[phone] [facility] ADD (chief complaint) anxiety1 (chief complaint) pectus1 (chief complaint) Attention deficitPectus carinatum 2 Rivera Saul. [address], [place], [place], [address] , [place]. tel:[phone] OFFICE/OUTPA TIENT VISIT, EST [facility], [address], [place], [place], [address], [place] tel:[phone] [facility] ADD (chief complaint) Attention deficit 2 Rivera Saul. [address], [place], [place], [address] , [place]. [phone] PREV VISIT, EST, AGE 18-39 [facility], [address], [place], [place], [address], [place] tel:[phone] [facility] physical (chief complaint) Encounter for general adult medical exam w abnormal findingsAcneGeneral ized Anxiety DisorderAttention deficitPectus carinatum 2 Rivera Saul. [address], [place], [place], [address] , [place]. tel:[phone] OFFICE/OUTPA TIENT VISIT, EST [facility], [address], [place], [place], [address], [place] tel:[phone] [facility] anxiety1 (chief complaint) ADD (chief complaint) pectus1 (chief complaint) Pectus carinatumEmphysemaG eneralized Anxiety DisorderAttention deficit 2 Rivera Saul. [address], [place], [place], [address] , [place]. tel:[phone] OFFICE/OUTPA TIENT VISIT, [facility] [place], [address], [place], [place], [address], [place] tel:[phone] [facility] Acne (chief complaint) pectus1 (chief complaint) Pectus carinatumEmphysemaA cne 1 Miguel Hughes. [address], [place], [place], [address] , [place]. [phone] OFFICE/OUTPA TIENT VISIT, [facility] [place], [address], [place], [place], [address], [place] tel:[phone] [facility] pectus (chief complaint) proteinuri a1 (chief complaint) truncal acne (chief complaint) AcnePectus carinatumProteinuri aDyspnea 1 Miguel Hughes. [address] [facility] [address], [place], [place], [address] , [place]. tel:[phone] OFFICE/OUTPA TIENT VISIT, [facility] [place], [address], [place], [place], [address], [place] tel:[phone] [facility] pectus (chief complaint) proteinuri a1 (chief complaint) Pectus carinatumProteinuri a 0 1 Miguel Hughes. [address], [place], [place], [address] , [place]. [phone] OFFICE/OUTPA TIENT VISIT, [facility] [place], [address], [place], [place], [address], [place] tel:[phone] [facility] low D (chief complaint) low kcl (chief complaint) proteinuri a1 (chief complaint) pectus1 (chief complaint) Pectus carinatumProteinuri aHypokalemiaVitamin D deficiency, unspecified Mar-0 - 1 Miguel Hughes. [address], [place], [place], [address] , [place]. tel:[phone] PREV VISIT, NEW, AGE 18-39 [facility], [address], [place], [place], [address], [place] tel:[phone] [facility] physical (chief complaint) Encounter for general adult medical exam w abnormal findingsPectus carinatumDyspneaGen eralized Anxiety DisorderAttention deficitPolyuria 1 Miguel Hughes. [address], [place], [place], [address] , [place]. tel:[phone] Family History Family Member Type Diagnosis Age [...] Referral Referred To: Roxy PAYTON, Tiffany Chang [address] [facility]
[address] [place], [place], [address] Ordered: Referrals: Tiffany Ramsey MD. Evaluate and [...] Singh [address] [place], [place], [id number] Ordered: Referrals: Allopathic & Osteopathic Physicians : [...] any flank pain Pt has normal UO ADD Pt has ADD. Pt s tates that concerta made him feeling numbness around area .Pt stopped concerta and his area numbness resolved. acne1 Pt has cystic ac ne around face and chest area Pt failed abx. Pt has not heard from dermatology yet fever Additional infor mation: Pt c/o fever as high as 102, ,sore throat and productive cough for 5 days. Pt denies any headache, sob. Pt denies any dysphagia. Pt denies any rash or sick contact. anxiety1 Pt has chronic a nxiety and depression Pt doing ok with zoloft Pt denies any suicidal or homicidal thought Pt denies any crying spells Acne1 Pt has chronic c ystic acne Pt failed abx and topical. Pt wants to see dermatology. ADD Pt has ADD Pt do ing ok with concerta PRn Pt feels more focused Pt feels more energy Pt denies any side effects. However pt states that concerta usually works for the first week then does not work anymore after the 1st week. anxiety1 Pt has chronic a nxiety and depression Pt takes zoloft and doing ok Pt is out of zoloft for several days Pt wants it refilled Pt doing well with zoloft P tdenies any suicidal or homicidal thought pt denies any crying spells ADD Pt has ADD Pt do ing ok with concerta PRn Pt feels more focused Pt feels more energy Pt denies any side effects acne Additional infor desiree: Pt has some cystic acne around chest area Pt wants refill of minocycline. pectus1 Pt has pectus ca rinatum s/p surgery and he is doing ok .Pt still has mild chest concave but much better Pt denies any sob or chest pain ADD Pt has ADD Pt st arted [...] recurrent facial acne. Pt used to see carpet binder but he has not seen carpet binder for more than one year. Pt wants [...] 10 days. Pt denies any other complaints pectus1 Pt has severe pe ctus carinatum. [...] is kind of confused about seeing a rac specialist vs PFT. Pt states that he saw rac specialist but nothing was done. He states that the CT surgeon told him to do self cardiac exercise for several months before surgery. Pt uses albuterol 1-2 per week. Pt denies any wheezing anxiety1 Pt has chronic a nxiety and depression Pt takes zoloft and doing ok Pt denies any suicidal or homicidal thought .Pt denies any crying spells. ADD Pt has ADD. Pt h as difficulty with focus and concentration. Pt takes strattera and doing ok. pt needs refill. pectus1 Pt has pectus ca rinatum. 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 Acne Additional infor mation: Pt has chronic cystic acne around chest area. Pt is seeing dermatology and he is on clindamycin topical and also minocycline now. Pt has some old scarring. Pt doing ok. pectus Pt has pectus ca rinatum with chronic chest wall pain Pt wears a chest binder now. Pt does feel sob sometimes, especially with exertion. Pt denies any chest pain. Pt denies any palpitation Pt saw CT surgeon who plans for carinatum surgery soon after cardiac echo and PFTs. Pt also saw a psychiatrist who cleared him mentally. proteinuria1 Pt has proteinur ia. Pt has right kidney hydronephrosis. Pt denies any flank pain or urinary symptoms ,Pt saw nephrology who ordered a cT of abdomen and pelvis to look into any obstructions, etc. Pt has normal UO truncal acne Pt has chronic c ystic acne on upper back and front of chest area with scarring. Pt used to wear chest brace which he sweats under it which causes worsening intermittent flare up of the cystic acne. Pt was told by CT surgeon to see a carpet binder to get the acne treated before the carinatum repair. pectus Pt has severe pe ctus carinatum. Pt has appointment with pectus clinic at [facility] in 10 days, Pt denies any sob or chest pain proteinuria Pt has mild trac e proteinuria ,Pt had normal renal function. Pt denies any UTI symptoms. Pt denies any flank pain. low D Pt has low D. low kcl Pt has low kcl P t denies any nausea, vomiting, diarrhea, palpitation, etc proteinuria Pt has trace pro teinuria Pt denies any UTi symptoms pectus1 Pt has severe pe ctus carinatum. Pt had chest CT done which was benign except for pectus ,Pt does notices some sob and MS chest pain physical Pt needs annual physical. Pt has [...]
--- OUTSIDE RECORDS SUMMARY | 2024-07-31 00:23 | XMS_ITS | Referral Summary ---
Author Organization [facility] Address [address] [place] [address] Care Team Providers Care Costing Analyst Name Role Phone Saul Rivera MD Primary [...] on file Legal Sex Male 8:06 AM LOADING AND UNLOADING SUPERVISOR Gender Identity Not on file Sexual Orientation Not on file Last Filed Vital Signs Vital Sign Reading Time Taken Comments Blood Pressure 104/60 07/31/2022 10:40 AM LOADING AND UNLOADING SUPERVISOR Pulse 86 07/31/2022 10:40 AM LOADING AND UNLOADING SUPERVISOR Temperature 36.4 C (97.5 F) 07/04/2022 4:25 PM LOADING AND UNLOADING SUPERVISOR Respiratory Rate 18 07/04/2022 4:25 PM LOADING AND UNLOADING SUPERVISOR Oxygen Saturation 100% 07/31/2022 10:40 AM LOADING AND UNLOADING SUPERVISOR Inhaled Oxygen Concentration - - Weight 67 kg (147 lb 9.6 oz) 07/31/2022 10:40 AM LOADING AND UNLOADING SUPERVISOR Height 187.5 cm (6' 1.82 ) 07/31/2022 10:[address] Body Mass Index 19.04 07/31/2022 10:40 AM LOADING AND UNLOADING SUPERVISOR Plan of Treatment Not on file Medical Devices Explanted Type Area Tractor Crane Operator Device Identifier Shelf Expiration Date Model / Serial / Lot [employer] [id number] Reagan 18cm Strut Pectus Bar Support Stainless Steel - [id number] Implanted:Qty: 1 on 08/06/2021 by Francisco Berg MD at [facility] Explanted:Qty: 1 on 07/04/2022 by Deep Nova MD at [facility] N/A: Chest [employer] [id number] / / Insurance IDPA [employer] OOS BLUE [employer] CHOICE [facility] [employer] 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
[2024-07-31 00:44] VITALS: BP 157/78; PULSE 95; RESP 14; TEMP 36.4; O2SAT 99
--- OUTSIDE RECORDS SUMMARY | 2024-07-31 02:37 | XMS_ITS | Clinical Summary ---
Author Organization [facility] Address [address] [place] [address] Care Team Providers Care Manufacturing Assistant Name Role Phone Saul Rivera MD Primary Care Provider [phone] Source Comments [facility],non-owned Affiliates and Associated Physician Practices is amultiple site organization consisting of ambulatory clinics and hospital sitesin [place], [place], [place] and [place]. This disclosure is being madepursuant to the Care Everywhere program and may not contain all information available regarding this patient. 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
--- OUTSIDE RECORDS SUMMARY | 2024-07-31 02:37 | XMS_ITS | Referral Summary ---
Author Organization [facility] Address [address] [address] Care Team Providers Care Reel Fed Printer Name Role Phone Saul Rivera MD Primary Care Provider [phone] Source Comments [facility],non-owned Affiliates and Associated Physician Practices is amultiple site organization consisting of ambulatory clinics and hospital sitesin [place], [place], [place] and [place]. This disclosure is being madepursuant to the Care Everywhere program and may not contain all information available regarding this patient. 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
--- OUTSIDE RECORDS SUMMARY | 2024-07-31 02:37 | XMS_ITS | Patient Health Summary ---
Author Organization [facility] Address [address] [place] [address] Care Team Providers Care Supervisor Show Operations Name Role Phone Saul Rivera MD Primary Care Provider [phone] Note from [facility],non-owned Affiliates and Associated Physician Practices is amultiple site organization consisting of ambulatory clinics and hospital sitesin [place], [place], [place] and [place]. This disclosure is being madepursuant to the Care Everywhere program and may not contain all information available regarding this patient. Last updated 18.[facility] Allergies No known active allergies Medications * [...] RENAL SCAN W DRUG (04/26/2021 11:33 AM DIGITAL RECRUITER) Anatomical Region Laterality Modality Abdomen Nuclear Medicine 04/26/2021 11:0 0 AM DIGITAL RECRUITER Impressions 04/26/2021 1:03 PM DIGITAL RECRUITER Impression: 1. Mildly hydronephrotic right kidney no [...] 1:03 PM . Narrative 04/26/2021 1:03 PM DIGITAL RECRUITER Procedure: Renal blood flow and function with [...] D.O. on 04/26/2021 1:[address] [facility] ORDERABLES * URINALYSIS AUTO - POINT OF CARE (AMB) SLU (04/10/2021 11:42 AM CDT) Glucose UA neg Bilirubin UA POCT neg Ketones UA POCT neg Specific Tatums UA 1.010 Blood Urine POCT neg pH UA 6.0 Protein UA neg Urobilinogen UA 0.2 mg/dL Nitrite UA neg WBC UA neg Urine URINE / Unknown 04/10/2021 1 1:42 AM CDT Brandy Carroll DO LAB - POINT OF CAR E ORDERABLES * URINALYSIS W/MICROSCOPIC NO CULTURE (01/08/2021 12:26 PM CDT) Color UA YELLOW YELLOW [facility] Appearance CLEAR CLEAR [facility] Specific Tatums UA 1.005 1.001 - 1.035 [facility] pH [...] SEEN /LPF [facility] Comment: Test Performed at: [facility] [address] [place] [id number] SALLIE MARES DO,MPH Urine URINE SPECIMEN OBTAINED BY CLEAN CATCH PROCEDURE / Unknown 01/08/2021 12:26 PM CDT 01/08/2021 12:27 PM CDT Kayli Orozco MD LAB - URINALYSIS ORD ERABLES [facility] [address] [place] [address] * RENAL FUNCTION PANEL (01/08/2021 12:26 PM [...] 5.1 g/dL [facility] Comment: Test Performed at: [facility] [address] [facility] [address] SALLIE MARES DO,MPH Blood BLOOD SPECIMEN / Unknown 01/08/2021 12:26 PM CDT 01/08/2021 12:27 PM CDT Kayli Orozco MD LAB - CHEMISTRY ORDE RABVERITO Performing Organization Address [facility] de Phone Number [facility] [address] [place] [address] * (ABNORMAL) PROTEIN CREATININE RATIO URINE RANDOM [...] Comment: REPORT COMMENT: FASTING:NO Test Performed at: [facility] [address] [facility] [address] SALLIE MARES DO,MPH Urine URINE SPECIMEN OBTAINED BY CLEAN CATCH PROCEDURE / Unknown 01/08/2021 12:26 PM CDT 01/08/2021 12:27 PM CDT Kayli Orozco MD LAB - URINE CHEMISTR Y ORDERABLES Performing Organization Address [facility] Co de Phone Number [facility] [address] [place] [address] * MICROALB/CREAT RATIO URINE RANDOM PANEL (12/12/2020 [...] within a diagnostic category. Test Performed at: [place] [address] SALLIE MARES DO,MPH 12/12/2020 2:07 PM CDT 12/12/2020 2:08 PM CDT Kayli Orozco MD LAB - URINE CHEMISTR Y ORDERABLES [facility] [address] [place] [address] * (ABNORMAL) PROTEIN ELECTROPH REFLX ROBERT UR TIMED (12/07/2020 3:11 PM CDT) Creatinine 24 Hour Urine 1.32 0.50 - 2.15 g/24 h [facility] Protein 24 Hour Urine 476(H) < OR = 114 mg/g creat [facility] Protein/Creatinine Ratio 0.476(H) < OR = 0.114 mg/mg creat [facility] Protein 24 Hour Urine 630(H) <150 mg/24 h [facility] Albumin 100 % [facility] Alpha-1 Globulin 0 % [facility] Uqxti-4-Nspjknmu 0 % [facility] Beta-Globulin 0 % [facility] Gamma Globulin 0 % [facility] Abnormal Protein Band [facility] Abnormal Protein Band 2 [facility] Abnormal Protein Band 3 [facility] Interpretation [facility] Comment: Agarose electrophoresis of urine reveals albumin. No abnormal protein is observed. REPORT COMMENT: FASTING:NO PATIENT UNABLE TO VOID; ADVISED TO RETURN FOR COLLECTION. Test Performed at: [facility] [address] SALLIE MARES DO,MPH 12/07/2020 3:11 PM CDT 12/08/2020 3:05 AM CDT Kayli Orozco MD LAB - URINE CHEMISTR Y ORDERABLES [facility] [address] [place] [address] * US RETROPERITONEAL COMPLETE (11/27/2020 5:01 PM [...] needed. Dictated by Radames Medrano MD (residential property tax appraiser). I, Dr. NIKA SLATER M.D. have personally [...] needed. Dictated by Radames Medrano MD (residential property tax appraiser). Dr. NIKA Coon M.D. have personally reviewed [...] levocurvature. Dictated by Lawson Andres MD (residential property tax appraiser). Gracie Coon, have personally reviewed the images [...] are 12 rib-bearing thoracic vertebrae and 5 bbj-wvx-zdwxnkb lumbar vertebrae. No segmentation anomalies are identified. [...] are 12 rib-bearing thoracic vertebrae and 5 ftv-rtc-tlrkxhm lumbar vertebrae. No segmentation anomalies are identified. [...] levocurvature. Dictated by Lawson Andres MD (residential property tax appraiser). I, Gracie Ramirez, have personally reviewed the [...] Comment: REPORT COMMENT: FASTING:YES Test Performed at: [place] [address] SALLIE MARES DO,MPH 04/09/2018 2:16 PM CDT 04/09/2018 2:16 PM CDT Janki Gupta MD LAB - HEMATOLOGY O RDERABLES Performing Organization Address [facility] de Phone Number [facility] [address] [place] [address] * TRIGLYCERIDES BLOOD (04/09/2018 2:16 PM CDT) Only the most recent of2 resultswithin the time period is included. Triglycerides 75 <90 mg/dL [facility] Comment: Test Performed at: [place] [address] SALLIE MARES DO,MPH 04/09/2018 2:16 PM CDT 04/09/2018 2:16 PM CDT Janki Gupta MD LAB - CHEMISTRY OR DERABLES Performing Organization Address [facility] Co de Phone Number [facility] [address] [place] [address] * COMPREHENSIVE METABOLIC PANEL (04/09/2018 2:16 PM [...] 46 U/L [facility] Comment: Test Performed at: [facility] [address] [place] [address] SALLIE MARES DO,MPH 04/09/2018 2:16 PM CDT 04/09/2018 2:16 PM CDT Janki Gupta MD LAB - CHEMISTRY OR DERABLES [facility] [address] [place] [address] * ECHO CONSULT - PEDIATRIC (02/03/2018 2:00 PM CDT) 02/03/2018 2:00 PM CDT Narrative Procedure Note Luigi Haile MD - 02/03/2018 [address] [place] [address] Fax Non-Congenital Transthoracic Report Pat.Name: RAJAT DENTON [place].ID: [id number] St.Date: 02/03/2018 Exam Time: 2:00:00 PM Study Type:Non-Congenital TTE Height: 158.6cm Weight: 65kg BSA: 1.67 m2 Age: 6 2000,17Y Sex: MALE BP: 91/37 Sonogrphr: iCerra Kincaid MATT Pat. Stat.:Outpatient CPT - 4: 22438 Reason for Study:Pectus carinatum, Evaluate for Marfan's History / Clinical:Echocardiogram to evaluate for Marfan's Procedures:2D Non-congenital, Doppler Complete, Color Flow Visit ID: [id number] SUMMARY: Impression: Technically difficult study due to [...] Chin MD ECHO ORDERABLES Performing Organization Address City/State/[facility] Co de Phone Number [facility] [address] [place] [address] * XR CHEST 2VW (01/28/2018 12:56 PM [...] MD on 01/28/2018 at 1:02 PM Shivani Cihn MD DIAGNOSTIC IMAGING O RDERABLES * GROSS + MICRO EXAM (STL) (10/27/2014 12:44 PM CDT) Case Report Surgical Pathology Report Case: [id number] Authorizing Provider: Yordy Edward MD Collected: 10/27/2014 12:44 PM Ordering Location: ENDOSCOPY SERVICES Received: 10/27/2014 01:29 PM Pathologist: Mariaelena Borden MD Specimens: A) - Duodenal Biopsy B) - Stomach Biopsy C) - Esophageal Biopsy 10/30/2014 9:38 AM [facility] Final Diagnosis A. DUODENUM, BIOPSY: - NO HISTOPATHOLOGIC ABNORMALITY B. STOMACH, BIOPSY: - MILD CHRONIC INFLAMMATION C. ESOPHAGUS, BIOPSY: - NO HISTOPATHOLOGIC ABNORMALITY 10/30/2014 9:38 AM [facility] Clinical History The patient is a 13-year-old boy with abdominal pain who underwent upper endoscopy, the findings of which were found to be normal. 10/30/2014 9:38 AM [facility] Gross Description The specimens are received [...] as C1. (LAZARO/aurora) 10/30/2014 9:38 AM T [facility] Microscopic Description 9 H&E slides Sections of the duodenum show normal crypt to villous architecture with no increase in intraepithelial lymphocytes. Sections of the stomach show mild chronic inflammation with lamina propria plasma cells, lymphocytes and a mucosal lymphoid aggregate. There is no evidence of active inflammation. Sections of the esophagus show fragments of unremarkable squamous mucosa. 10/30/2014 9:38 AM T [facility] Disclaimer The performance characteristics of all immunohistochemical and indirect immunofluorescence stains (if any) cited in this report were determined by the [facility] in compliance with CLIA `88 regulations. Some of these tests rely on the use of analyte-specific reagents and are subject to specific labeling requirements by the FDA. Such tests were developed by the [facility] and have not been cleared or approved by the FDA. The FDA has determined that such clearance or approval is not necessary. These tests are used for clinical purposes and should not be regarded as investigational or for research. This case has been personally reviewed and interpreted by the attending (teaching) pathologist. 10/30/2014 9:38 AM T [facility] Pathology/Cytology ESOPHAGEAL BIOPSY SPECIMEN / Unknown 10/27/2014 12:44 PM CDT 10/27/2014 1:29 PM CDT Miscellaneous samples (specimen) BIOPSY OF STOMACH / Unknown 10/27/2014 12:44 PM CDT 10/27/2014 1:29 PM CDT Miscellaneous samples (specimen) ESOPHAGEAL BIOPSY SPECIMEN / Unknown 10/27/2014 12:44 PM CDT 10/27/2014 1:29 PM CDT Yordy Edawrd MD LAB - PATHOLOGY/CYT OLOGY ORDERABLES Performing Organization Address City/State/[facility] Co de Phone Number [facility] [address] [place] [address] * HELICOBACTER PYLORI UREASE (STL) (10/27/2014 12:41 PM CDT) Helicobacter pylori Urease Initial Negative Negative 10/28/2014 2:28 PM CDT [facility] Helicobacter pylori Urease Final Negative Negative 10/28/2014 2:28 PM CDT [facility] Microbiology GASTRIC ANTRAL BIOPSY SPECIMEN / Unknown 10/27/2014 12:41 PM CDT 10/27/2014 12:59 PM CDT Bonnie Alberto POLICE CAPTAIN SENIOR-FIRMWARE ENGINEER LAB - MICROBIOLOG Y ORDERABLES Performing Organization Address City/State/[facility] de Phone Number [facility] [address] [place] [address] * EGD (10/27/2014 6:01 AM CDT) Report Endoscopy POC _ Patient Name: Rajat Denton Gender: Male Date of : 2000 Age: 13 Admit Type: Outpatient Attending MD: Yordy Edward MD Order #: [id number] _ Procedure: Upper GI endoscopy Indications: Generalized [...] and anxiety. Procedure Code(s): --- Professional --- 35274, Esophagogastrodu odenoscopy, flexible, transoral; with biopsy, single or multiple --- Technical --- 13264, Esophagogastrodu odenoscopy, flexible, transoral; with biopsy, single or multiple Diagnosis Code(s): --- Professional --- 789.07, Abdominal pain, generalized --- Technical --- 789.07, Abdominal pain, generalized CPT copyright 2013 [employer]. All rights reserved. The codes documented in this report are preliminary and upon member service specialist review may be revised to meet current compliance requirements. Dr. Yordy Edward Yordy Edward MD 10/27/2014 12:54 PM This report has been signed electronically. Number of Addenda: 0 Note Initiated On: 10/27/2014 6:01 AM Procedure Date: 10/27/2014 6:01:49 AM This report has been signed electronically. [facility] 10/27/2014 6:01 AM CDT Bonnie Alberto POLICE CAPTAIN SENIOR-[facility] GI PROCEDURE ORDE PAMELA [facility] [address] [facility] [place] [address] * TISSUE TRANSGLUTAMINASE AB IGA (10/19/2014 12:23 PM CDT) Pathologist [facility] TTG Antibody IgA 1 <4 U/mL [facility] Comment: Value Interpretation <4 U/mL: No Antibody Detected >or=4 U/mL: Antibody Detected Test Performed at: [facility] [address] [place] [address] JONATHAN PRIDE MD,PHD Blood specimen (specimen) BLOOD SPECIMEN / Unknown 10/19/2014 12:23 PM CDT 10/19/2014 12:24 PM CDT Bonnie Alberto APRN-FIRMWARE ENGINEER LAB - SEROLOGY OR DERABLES Performing Organization Address [facility] Co de Phone Number [address] [address] * C-REACTIVE PROTEIN (10/19/2014 12:23 PM CDT) [facility] C-Reactive Protein 0.12 <0.80 mg/dL [facility] Comment: Please be advised that patients taking Carboxypenicillins may exhibit falsely decreased C-Reactive Protein levels due to an analytical interference in this assay. Test Performed at: [facility] [address] SALLIE MARES DO,MPH Blood specimen (specimen) BLOOD SPECIMEN / Unknown 10/19/2014 12:23 PM CDT 10/19/2014 12:24 PM CDT Bonnie Alberto APRN-[place]INA LAB - CHEMISTRY O RDERABLES Performing Organization Address City/[facility] Co de Phone Number [facility] [id number] [place] [address] * IGA BLOOD (10/19/2014 12:23 PM CDT) [facility] IgA 231 70 - 432 mg/dL [facility] Comment: Test Performed at: [facility] [address] [facility] [employer] [address] SALLIE MARES DO,MPH Blood specimen (specimen) BLOOD SPECIMEN / Unknown 10/19/2014 12:23 PM CDT 10/19/2014 12:24 PM CDT Bonnie Camarillo Dolly POLICE CAPTAIN SENIOR[facility] LAB - CHEMISTRY O RDERABLES Performing Organization Address City/[facility]/ZIP Co de Phone Number [facility] [address] [place] [address] * LIPASE BLOOD (09/30/2014 3:12 PM CDT) Lipase 17 10 - 220 U/L 09/30/2014 3:42 PM CDT [facility] Blood BLOOD SPECIMEN / Unknown Lab Venipuncture / Unknown 09/30/2014 3:12 PM CDT 09/30/2014 3:21 PM CDT Dejah Emery POLICE CAPTAIN S[facility]IOR[facility] LAB - MEDICINE ASSISTANT RY ORDERABLES Performing Organization Address [facility] Co de Phone Number [facility] [address] [place] [address] * AMYLASE BLOOD (09/30/2014 3:12 PM CDT) Amylase 54 5 - 65 U/L 09/30/2014 3:42 PM CDT [facility] Blood BLOOD SPECIMEN / Unknown Lab Venipuncture / Unknown 09/30/2014 3:12 PM CDT 09/30/2014 3:21 PM CDT Dejah Emery POLICE CAPTAIN S[facility] LAB - MEDICINE ASSISTANT RY ORDERABLES Performing Organization Address [facility] de Phone Number [facility] [address] [place] [address] * XR ABD OBSTR SERIES (09/30/2014 2:57 [...] Moderate amount of retained stool. Dejah Emery POLICE CAPTAIN SENIOR-FIRMWARE ENGINEER DIAGNOSTIC IM AGING ORDERABLES Care Teams Supervisor Show Operations Relationship Specialty Start Date End Date Saul Rivera MD PCP - General 10/23/20
--- OUTSIDE RECORDS SUMMARY | 2024-07-31 02:37 | XMS_ITS | Referral Summary ---
Author Organization [facility] Address [address] [place] [address] Care Team Providers Care Foil Stamp Operator Name Role Phone Saul Rivera MD [...] post-operative pain 08/06/2021 Pectus carinatum 10/25/2020 Immunizations Immunization Administration Dates Next Due DTaP 11/05/2005, 3,05/17/2002,03/16,01/01/2002 [...] on file Legal Sex Male 8:06 AM MAINTENANCE AND REPAIR WORKER Gender Identity Not on file Sexual Orientation Not on file Last Filed Vital Signs Vital Sign Reading Time Taken Comments Blood Pressure 104/60 07/31/2022 10:40 AM MAINTENANCE AND REPAIR WORKER Pulse 86 07/31/2022 10:40 AM MAINTENANCE AND REPAIR WORKER Temperature 36.4 C (97.5 F) 07/04/2022 4:25 PM MAINTENANCE AND REPAIR WORKER Respiratory Rate 18 07/04/2022 4:25 PM MAINTENANCE AND REPAIR WORKER Oxygen Saturation 100% 07/31/2022 10:40 AM MAINTENANCE AND REPAIR WORKER Inhaled Oxygen Concentration - - Weight 67 kg (147 lb 9.6 oz) 07/31/2022 10:40 AM MAINTENANCE AND REPAIR WORKER Height 187.5 cm (6' 1.82 ) 07/31/2022 10:[address] Body Mass Index 19.04 07/31/2022 10:40 AM MAINTENANCE AND REPAIR WORKER Plan of Treatment Not on file Medical Devices Explanted Type Area Plaster Helper Device Identifier Shelf Expiration Date Model / Serial / Lot [employer] [id number] Reagan 18cm Strut Pectus Bar Support Stainless Steel - [id number] Implanted:Qty: 1 on 08/06/2021 by Francisco Berg MD at [facility] Explanted:Qty: 1 on 07/04/2022 by Deep Nova MD at [facility] N/A: Chest [employer] [id number] / / Insurance IDPA [employer] OOS BLUE [employer] CHOICE [place] [facility] [employer] [facility] [employer] ACCESS OOS IDPA Advance Directives For more information, please contact: [phone] Documents on File Type Date Recorded Patient Piercer Expl anation Advance Directives and Livin g [...] 2:50 PM 08/10/2021 5:02 PM Care Teams Foil Stamp Operator Relationship Specialty Start Date End Date Saul Rivera MD [address] [place] [address] PCP - General Family Medicine 08/14/20
--- OUTSIDE RECORDS SUMMARY | 2024-07-31 02:37 | XMS_ITS | Clinical Summary ---
Author Organization [facility] Address [address] [place] [address] Care Team Providers Care Field Sales Representative Name Role Phone Saul Rivera MD Primary Care Provider [phone] Allergies No known active allergies Medications sertraline [...] on file Legal Sex Male 8:06 AM BLANKET INSPECTOR Gender Identity Not on file Sexual Orientation Not on file Obstetrics History Last Filed Vital Signs Vital Sign Reading Time Taken Comments Blood Pressure 104/60 07/31/2022 10:40 AM BLANKET INSPECTOR Pulse 86 07/31/2022 10:40 AM BLANKET INSPECTOR Temperature 36.4 C (97.5 F) 07/04/2022 4:25 PM BLANKET INSPECTOR Respiratory Rate 18 07/04/2022 4:25 PM BLANKET INSPECTOR Oxygen Saturation 100% 07/31/2022 10:40 AM BLANKET INSPECTOR Inhaled Oxygen Concentration - - Weight 67 kg (147 lb 9.6 oz) 07/31/2022 10:40 AM BLANKET INSPECTOR Height 187.5 cm (6' 1.82 ) 07/31/2022 10:[address] Body Mass Index 19.04 07/31/2022 10:40 AM BLANKET INSPECTOR Plan of Treatment Health Maintenance Due Date [...] 03/05/2016, 10/31/2002 Medical Devices Explanted Type Area Used Car Make Ready Mechanic Device Identifier Shelf Expiration Date Model / Serial / Lot [employer] [id number] Reagan 18cm Strut Pectus Bar Support Stainless Steel - [id number] Implanted:Qty: 1 on 08/06/2021 by Francisco Berg MD at [facility] Explanted:Qty: 1 on 07/04/2022 by Deep Nova MD at [facility] N/A: Chest [employer] [id number] / / Insurance [employer]DAK Rent Here [facility] Rent Here CHOICE [place] IDPA [employer] Here OOS [employer] Here OOS IDPA Advance Directives For more information, please contact: [phone] Documents on File Type Date Recorded Patient Percussion Tuner Expl anation Advance Directives and Livin g [...] 2:50 PM 08/10/2021 5:02 PM Care Teams Field Sales Representative Relationship Specialty Start Date End Date Saul Rivera MD [address] [place] [address] PCP - General Family Medicine 08/14/20
--- OUTSIDE RECORDS SUMMARY | 2024-07-31 02:37 | XMS_ITS | Continuity of Care Document ---
Author Organization [facility] Address [address] [facility] [place] [address] Phone Care Team Providers Care Automation Control Technician Name Role Phone Saul Rivera MD Unavailable [...] Diagnoses Date Provider Providers Copied on Encounter [facility], [address] [place] [address] A, [place], [place], [id number], [place] tel:[phone] [facility] No Information 3 Miguel Hughes. [address], [place], [place], [address] , [place]. tel:[phone] PREV VISIT, EST, AGE 18-39 [facility], [address], [place], [place], [address], [place] tel:[phone] [facility] physical (chief complaint) Encounter for general adult medical exam w abnormal findingsAcneAttenti on deficitGeneralized Anxiety DisorderHypokalemia Proteinuria 3 Miguel Hughes. [address], [place], [place], [address] , [place]. tel:[phone] OFFICE/OUTPA TIENT VISIT, [facility], [address], [place], [place], [address], [place] tel:[phone] [facility] ADD (chief complaint) acne1 (chief complaint) fever (chief complaint) AcneAttention deficitViral infection 3 Miguel Hughes. [address], [place], [place], [address] , [place]. tel:[phone] OFFICE/OUTPA TIENT VISIT, [facility], [address], [place], [place], [address], [place] tel:[phone] [facility] anxiety1 (chief complaint) Acne1 (chief complaint) ADD (chief complaint) Generalized Anxiety DisorderAcneAttenti on deficit 3 Miguel Hughes. [address], [place], [place], [address] , [place]. tel:[phone] OFFICE/OUTPA TIENT VISIT, [facility], [address], [place], [place], [address], [place] tel:[phone] [facility] anxiety1 (chief complaint) ADD (chief complaint) acne (chief complaint) pectus1 (chief complaint) Generalized Anxiety DisorderAttention deficitAcnePectus carinatum 3 Rivera Saul. [address], [place], [place], [address] , [place]. tel:[phone] OFFICE/OUTPA TIENT VISIT, EST [facility], [address], [place], [place], [address], [place] tel:[phone] [facility] ADD (chief complaint) anxiety1 (chief complaint) pectus1 (chief complaint) Attention deficitPectus carinatum 2 Rivera Saul. [address], [place], [place], [address] , [place]. tel:[phone] OFFICE/OUTPA TIENT VISIT, EST [facility], [address], [place], [place], [address], [place] tel:[phone] [facility] ADD (chief complaint) Attention deficit 2 Rivera Saul. [address], [place], [place], [address] , [place]. [phone] PREV VISIT, EST, AGE 18-39 [facility], [address], [place], [place], [address], [place] tel:[phone] [facility] physical (chief complaint) Encounter for general adult medical exam w abnormal findingsAcneGeneral ized Anxiety DisorderAttention deficitPectus carinatum 2 Rivera Saul. [address], [place], [place], [address] , [place]. tel:[phone] OFFICE/OUTPA TIENT VISIT, EST [facility], [address], [place], [place], [address], [place] tel:[phone] [facility] anxiety1 (chief complaint) ADD (chief complaint) pectus1 (chief complaint) Pectus carinatumEmphysemaG eneralized Anxiety DisorderAttention deficit 2 Rivera Saul. [address], [place], [place], [address] , [place]. tel:[phone] OFFICE/OUTPA TIENT VISIT, [facility], [address], [place], [place], [address], [place] tel:[phone] [facility] Acne (chief complaint) pectus1 (chief complaint) Pectus carinatumEmphysemaA cne 1 Miguel Hughes. [address], [place], [place], [address] , [place]. [phone] OFFICE/OUTPA TIENT VISIT, [facility], [address], [place], [place], [address], [place] tel:[phone] [facility] pectus (chief complaint) proteinuri a1 (chief complaint) truncal acne (chief complaint) AcnePectus carinatumProteinuri aDyspnea 1 Miguel Hughes. [address] [facility] [address], [place], [place], [address] , [place]. tel:[phone] OFFICE/OUTPA TIENT VISIT, [facility], [address], [place], [place], [address], [place] tel:[phone] [facility] pectus (chief complaint) proteinuri a1 (chief complaint) Pectus carinatumProteinuri a 0 1 Miguel Hughes. [address], [place], [place], [address] , [place]. [phone] OFFICE/OUTPA TIENT VISIT, [facility], [address], [place], [place], [address], [place] tel:[phone] [facility] low D (chief complaint) low kcl (chief complaint) proteinuri a1 (chief complaint) pectus1 (chief complaint) Pectus carinatumProteinuri aHypokalemiaVitamin D deficiency, unspecified Mar-0 - 1 Miguel Hughes. [address], [place], [place], [address] , [place]. tel:[phone] PREV VISIT, NEW, AGE 18-39 [facility], [address], [place], [place], [address], [place] tel:[phone] [facility] physical (chief complaint) Encounter for general adult medical exam w abnormal findingsPectus carinatumDyspneaGen eralized Anxiety DisorderAttention deficitPolyuria 1 Miguel Hughes. [address], [place], [place], [address] , [place]. tel:[phone] Family History Family Member Type Diagnosis Age At Onset Mother Problem lupus Father Problem of OD Brother Problem Alive and well Payers Payer name Insurance type Covered republican ID Authoriza tion(s) No Information Social History Type Description Quantity Date Captured Comments Alcohol Use Details Unknown Caffeine Use Details Unknown Tobacco Use Status No Information Smoking Status No Information Sex Male Chief Complaint And Reason For Visit No Information Plan Of Treatment Date Type Action Status Referral Ordered: Dermatology (related to Acne) ordered Referral Referred To: Roxy PAYTON, Tiffany Chang [address] [facility]
[address] [place], [place], [id number] Ordered: Referrals: Tiffany Ramsey MD. Evaluate and [...] Singh [address] [place], [place], [id number] Ordered: Referrals: Allopathic & Osteopathic Physicians : [...] recurrent facial acne. Pt used to see oil recovery operator but he has not seen oil recovery operator for more than one year. Pt wants [...] is kind of confused about seeing a hedis specialist vs PFT. Pt states that he saw hedis specialist but nothing was done. He states [...] told by CT surgeon to see a oil recovery operator to get the acne treated before the carinatum repair. pectus Pt has severe pe ctus carinatum. Pt has appointment with pectus clinic at [facility] in 10 days, Pt denies any [...]
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
== END 2024-07-31 04:02 | disposition home or self-care (01) ==
PROVIDERS: Emergency Provider Emergency Medicine
DX: S62.327A Displaced fracture of shaft of fifth metacarpal bone, left hand, initial encounter for closed fracture (principal); W22.09XA Striking against other stationary object, initial encounter
CPT/HCPCS: 26605; 73130; 99285; A4565; J2004

== ENCOUNTER 2024-08-04 00:23 | Day surgery (SDC) | payer BC, SELFPAY ==
[2024-08-02 13:59] VITALS: BMI 22.4
--- NOTE | 2024-08-02 14:00 | PC.NURSE ---
Report to the Outpatient Waiting Room, entrance under the green pavilion located off [facility], at time _1100_ on date _[id number]_. Planned Procedure Time: _1pm_.? Time changes happen often and if your time is changed the preop area will call you the afternoon before. - You and your visitor will be asked to self-screen and do not enter if you have any COVID symptoms. Please call surgeon if you need to reschedule. - A mask is optional within the hospital at this time. Patients may have clear liquids (water, carbonated beverages, clear teas, apple juice) until 3 hours prior to surgery with a maximum of 20 ounces. - No food from midnight until time of surgery and no smoking, or chewing tobacco (or any form of nicotine). No chewing gum, candy or mints. Take only the following medications with a SIP of water on the morning of surgery: __Acetaminophen if needed for pain. DO NOT STOP ANY OF YOUR OTHER PRESCRIPTION MEDICATIONS PRIOR TO SURGERY EXCEPT THE FOLLOWING Hold all vitamins and supplements for 3 days per anesthesiologist. Medications to discontinue per physician Says has not been using the Ibuprofen and will just use Acetaminophen instead. Date to take last dose Please no make-up, nail azeri, hairspray, perfume, deodorant, or body powder the day of surgery.? No jewelry (including any body piercings) or valuables the day of surgery, leave them at home.? Please take a shower or bath the night before, or the morning of, surgery with an antibacterial soap.? Wear comfortable, loose fitting clothing.? - Jewelry must be removed prior to entering the operating room.? Rings and piercings that are not removed may be cut off. - The hospital will not accept responsibility for valuables.? - Please leave all valuables, including medications, at home the day of surgery. If you are going home after surgery, a licensed hazmat tanker driver must drive you home.? - NO public transportation without another adult if you receive anesthesia. - We recommend that an adult stay with you for 24 hours following discharge. - We also recommend that you do not drive, make important decision, drink alcoholic beverages, or take any drugs that were not prescribed by your health care provider for at least 24 hours after your discharge time. Follow any additional instructions given to you from your surgeon. Telephone instructions given to ___Jacob__and asked if any additional questions and then verbalized understanding. Patient advised to call surgeon office or pre surgery nurse liaison [phone] if any additional questions.
--- NOTE | 2024-08-02 14:08 | PC.NURSE ---
Report to the Outpatient Waiting Room, entrance under the green pavilion located off [facility], at time _1100_ on date _[id number]_. Planned Procedure Time: _1pm_.? Time changes happen often and if your time is changed the preop area will call you the afternoon before. - You and your visitor will be asked to self-screen and do not enter if you have any COVID symptoms. Please call surgeon if you need to reschedule. - A mask is optional within the hospital at this time. May have clear liquids (water, carbonated beverages, clear teas, apple juice) until 5am with a maximum of 20 ounces. Nothing to drink after 5am. - No food from midnight until time of surgery and no smoking, or chewing tobacco (or any form of nicotine). No chewing gum, candy or mints. Take only the following medications with a SIP of water on the morning of surgery: ___Acetaminophen if needed. DO NOT STOP ANY OF YOUR OTHER PRESCRIPTION MEDICATIONS PRIOR TO SURGERY EXCEPT THE FOLLOWING Hold all vitamins and supplements for 3 days per anesthesiologist. Medications to discontinue per physician Says has not been using Ibuprofen much and will switch to Acetaminophen until after surgery. Date to take last dose Please no make-up, nail gibraltarian, hairspray, perfume, deodorant, or body powder the day of surgery.? No jewelry (including any body piercings) or valuables the day of surgery, leave them at home.? Please take a shower or bath the night before, or the morning of, surgery with an antibacterial soap.? Wear comfortable, loose fitting clothing.? - Jewelry must be removed prior to entering the operating room.? Rings and piercings that are not removed may be cut off. - The hospital will not accept responsibility for valuables.? - Please leave all valuables, including medications, at home the day of surgery. If you are going home after surgery, a licensed hi low truck driver must drive you home.? - NO public transportation without another adult if you receive anesthesia. - We recommend that an adult stay with you for 24 hours following discharge. - We also recommend that you do not drive, make important decision, drink alcoholic beverages, or take any drugs that were not prescribed by your health care provider for at least 24 hours after your discharge time. Follow any additional instructions given to you from your surgeon. Telephone instructions given to __Jacob___and asked if any additional questions and then verbalized understanding. Patient advised to call surgeon office or pre surgery nurse liaison [phone] if any additional questions.
[2024-08-04] VITALS (8 sets, daily range): BP systolic 109–130; BP diastolic 51–99; PULSE 64–99; RESP 14–20; TEMP 36.1–36.8; O2SAT 98–100
--- NOTE | ~2024-08-04 | XR_ITS ---
EXAMINATION: XR surgery orthopedic DATE: 08/04/2024 13:49 INDICATION: Left fifth metacarpal fracture. TECHNIQUE: 3 intraoperative spot fluoroscopic views of left hand were obtained. I was not present. Fl uoroscopy exposure time was 1 minute 55 seconds. COMPARISON: Left hand radiographs 07/31/2024 FINDINGS: There is a transverse fracture of diaphysis of fifth metacarpal in near-anatomic alignment status post open reduction internal fixation with intramedullary screw. IMPRESSION: 1. Transverse fracture of diaphysis of fifth metacarpal status post open reduction internal fixation. Reviewed, dictated and finalized at location A. HOSE CUTTER IMPRESSION: 1. Transverse fracture of diaphysis of fifth metacarpal status post open reduct ion internal fixation.
--- OUTSIDE RECORDS SUMMARY | 2024-08-04 00:25 | XMS_ITS | Clinical Summary ---
Author Organization [facility] Address [address] [place] [address] Care Team Providers Care Woodwind Reeds Cutter Name Role Phone Saul Rivera MD Primary Care Provider [phone] Allergies No known active allergies Medications sertraline [...] on file Legal Sex Male 8:06 AM COUNSELING CASE MANAGER Gender Identity Not on file Sexual Orientation Not on file Obstetrics History Last Filed Vital Signs Vital Sign Reading Time Taken Comments Blood Pressure 104/60 07/31/2022 10:40 AM COUNSELING CASE MANAGER Pulse 86 07/31/2022 10:40 AM COUNSELING CASE MANAGER Temperature 36.4 C (97.5 F) 07/04/2022 4:25 PM COUNSELING CASE MANAGER Respiratory Rate 18 07/04/2022 4:25 PM COUNSELING CASE MANAGER Oxygen Saturation 100% 07/31/2022 10:40 AM COUNSELING CASE MANAGER Inhaled Oxygen Concentration - - Weight 67 kg (147 lb 9.6 oz) 07/31/2022 10:40 AM COUNSELING CASE MANAGER Height 187.5 cm (6' 1.82 ) 07/31/2022 10:[address] Body Mass Index 19.04 07/31/2022 10:40 AM COUNSELING CASE MANAGER Plan of Treatment Health Maintenance Due Date [...] 03/05/2016, 10/31/2002 Medical Devices Explanted Type Area Manager Academic Device Identifier Shelf Expiration Date Model / Serial / Lot [employer] [id number] 18cm Strut Pectus Bar Support Stainless Steel - [id number] Implanted:Qty: 1 on 08/06/2021 by Francisco Berg MD at [facility] Explanted:Qty: 1 on 07/04/2022 by Deep Nova MD at [facility] N/A: Chest [employer] [id number] / / Insurance IDNM [employer] [facility] [employer] CHOICE AL IDPA [employer] Address: [address] [place] [address] [employer] Address: [address] [place] [address] [place] [address] Advance Directives For more information, please contact: [phone] Documents on File Type Date Recorded Patient Diet Aide Expl anation Advance Directives and Livin g [...] 2:50 PM 08/10/2021 5:02 PM Care Teams Woodwind Reeds Cutter Relationship Specialty Start Date End Date Saul Rivrea MD [address] [place] [address] PCP - General Family Medicine 08/14/20
--- OUTSIDE RECORDS SUMMARY | 2024-08-04 00:25 | XMS_ITS | Referral Summary ---
Author Organization [facility] Address [address] [place] [address] Care Team Providers Care Forepart Rounder Name Role Phone Saul Rivera MD Primary Care Provider [phone] Allergies No known active allergies Medications sertraline [...] on file Legal Sex Male 8:06 AM FORGESMITH Gender Identity Not on file Sexual Orientation Not on file Last Filed Vital Signs Vital Sign Reading Time Taken Comments Blood Pressure 104/60 07/31/2022 10:40 AM FORGESMITH Pulse 86 07/31/2022 10:40 AM FORGESMITH Temperature 36.4 C (97.5 F) 07/04/2022 4:25 PM FORGESMITH Respiratory Rate 18 07/04/2022 4:25 PM FORGESMITH Oxygen Saturation 100% 07/31/2022 10:40 AM FORGESMITH Inhaled Oxygen Concentration - - Weight 67 kg (147 lb 9.6 oz) 07/31/2022 10:40 AM FORGESMITH Height 187.5 cm (6' 1.82 ) 07/31/2022 10:[address] Body Mass Index 19.04 07/31/2022 10:40 AM FORGESMITH Plan of Treatment Not on file Medical Devices Explanted Type Area Supervisor Customer Complaint Service Device Identifier Shelf Expiration Date Model / Serial / Lot [employer] [id number] Reagan 18cm Strut Pectus Bar Support Stainless Steel - [id number] Implanted:Qty: 1 on 08/06/2021 by Francisco Berg MD at [facility] Explanted:Qty: 1 on 07/04/2022 by Deep Nova MD at [facility] N/A: Chest [employer] [id number] / / Insurance IDPA [employer] OOS BLUE [employer] CHOICE [place] [facility] [employer] [facility] [employer] ACCESS OOS IDPA Advance Directives For more information, please contact: [phone] Documents on File Type Date Recorded Patient Supervisor Fabrication Department Expl anation Advance Directives and Livin g [...] 2:50 PM 08/10/2021 5:02 PM Care Teams Forepart Rounder Relationship Specialty Start Date End Date Saul Rivera MD [address] [place] [address] PCP - General Family Medicine 08/14/20
--- OUTSIDE RECORDS SUMMARY | 2024-08-04 00:25 | XMS_ITS | Continuity of Care Document ---
Author Organization [facility] Address [address] [place] [address] Phone Care Team Providers Care Junior Mechanical Engineer Name Role Phone Saul Rivera MD Unavailable [...] Diagnoses Date Provider Providers Copied on Encounter [facility], [address] [place] [address] A, [place], [place], [id number], [place] tel:[phone] [facility] No Information 3 Miguel Hughes. [address], [place], [place], [address] , [place]. tel:[phone] PREV VISIT, EST, AGE 18-39 [facility], [address], [place], [place], [address], [place] tel:[phone] [facility] physical (chief complaint) Encounter for general adult medical exam w abnormal findingsAcneAttenti on deficitGeneralized Anxiety DisorderHypokalemia Proteinuria 3 Miguel Hughes. [address], [place], [place], [address] , [place]. tel:[phone] OFFICE/OUTPA TIENT VISIT, [facility], [address], [place], [place], [address], [place] tel:[phone] [facility] ADD (chief complaint) acne1 (chief complaint) fever (chief complaint) AcneAttention deficitViral infection 3 Miguel Hughes. [address], [place], [place], [address] , [place]. tel:[phone] OFFICE/OUTPA TIENT VISIT, [facility], [address], [place], [place], [address], [place] tel:[phone] [facility] anxiety1 (chief complaint) Acne1 (chief complaint) ADD (chief complaint) Generalized Anxiety DisorderAcneAttenti on deficit 3 Miguel Hughes. [address], [place], [place], [address] , [place]. tel:[phone] OFFICE/OUTPA TIENT VISIT, [facility], [address], [place], [place], [address], [place] tel:[phone] [facility] anxiety1 (chief complaint) ADD (chief complaint) acne (chief complaint) pectus1 (chief complaint) Generalized Anxiety DisorderAttention deficitAcnePectus carinatum 3 Rivera Asul. [address], [place], [place], [address] , [place]. tel:[phone] OFFICE/OUTPA TIENT VISIT, EST [facility], [address], [place], [place], [address], [place] tel:[phone] [facility] ADD (chief complaint) anxiety1 (chief complaint) pectus1 (chief complaint) Attention deficitPectus carinatum 2 Rivera Saul. [address], [place], [place], [address] , [place]. tel:[phone] OFFICE/OUTPA TIENT VISIT, EST [facility], [address], [place], [place], [address], [place] tel:[phone] [facility] ADD (chief complaint) Attention deficit 2 Rivera Saul. [address], [place], [place], [address] , [place]. [phone] PREV VISIT, EST, AGE 18-39 [facility], [address], [place], [place], [address], [place] tel:[phone] [facility] physical (chief complaint) Encounter for general adult medical exam w abnormal findingsAcneGeneral ized Anxiety DisorderAttention deficitPectus carinatum 2 Rivera Saul. [address], [place], [place], [address] , [place]. tel:[phone] OFFICE/OUTPA TIENT VISIT, EST [facility], [address], [place], [place], [address], [place] tel:[phone] [facility] anxiety1 (chief complaint) ADD (chief complaint) pectus1 (chief complaint) Pectus carinatumEmphysemaG eneralized Anxiety DisorderAttention deficit 2 Rivera Saul. [address], [place], [place], [address] , [place]. tel:[phone] OFFICE/OUTPA TIENT VISIT, [facility], [address], [place], [place], [address], [place] tel:[phone] [facility] Acne (chief complaint) pectus1 (chief complaint) Pectus carinatumEmphysemaA cne 1 Miguel Hughes. [address], [place], [place], [address] , [place]. [phone] OFFICE/OUTPA TIENT VISIT, [facility], [address], [place], [place], [address], [place] tel:[phone] [facility] pectus (chief complaint) proteinuri a1 (chief complaint) truncal acne (chief complaint) AcnePectus carinatumProteinuri aDyspnea 1 Miguel Hughes. [address], [place], [place], [address] , [place]. tel:[phone] OFFICE/OUTPA TIENT VISIT, [facility], [address], [place], [place], [address], [place] tel:[phone] [facility] pectus (chief complaint) proteinuri a1 (chief complaint) Pectus carinatumProteinuri a 0 1 Miguel Hughes. [address], [place], [place], [address] , [place]. [phone] OFFICE/OUTPA TIENT VISIT, [facility], [address], [place], [place], [address], [place] tel:[phone] [facility] low D (chief complaint) low kcl (chief complaint) proteinuri a1 (chief complaint) pectus1 (chief complaint) Pectus carinatumProteinuri aHypokalemiaVitamin D deficiency, unspecified Mar-0 - 1 Miguel Hughes. [address], [place], [place], [address] , [place]. tel:[phone] PREV VISIT, NEW, AGE 18-39 [facility], [address], [place], [place], [address], [place] tel:[phone] [facility] physical (chief complaint) Encounter for general adult medical exam w abnormal findingsPectus carinatumDyspneaGen eralized Anxiety DisorderAttention deficitPolyuria 1 Miguel Hughes. [address], [place], [place], [address] , [place]. tel:[phone] Family History Family Member Type Diagnosis Age At Onset Mother Problem lupus Father Problem of OD Brother Problem Alive and well Payers Payer name Insurance type Covered democrat ID Authoriza tion(s) No Information Social History Type Description Quantity Date Captured Comments Alcohol Use Details Unknown Caffeine Use Details Unknown Tobacco Use Status No Information Smoking Status No Information Sex Male Chief Complaint And Reason For Visit No Information Plan Of Treatment Date Type Action Status Referral Ordered: Dermatology (related to Acne) ordered Referral Referred To: Roxy PAYTON, Tiffany Chang [id number] [facility]
[address] [place], [place], [id number] Ordered: Referrals: Tiffany Ramsey MD. Evaluate and [...] Singh [address] [place], [place], [id number] Ordered: Referrals: Allopathic & Osteopathic Physicians : [...] recurrent facial acne. Pt used to see director of clinical trials but he has not seen director of clinical trials for more than one year. Pt wants [...] ok. pt needs refill. pectus1 Pt has severe pe ctus carinatum. [...] is kind of confused about seeing a biochemistry specialist vs PFT. Pt states that he saw biochemistry specialist but nothing was done. He states that the CT surgeon told him to do self cardiac exercise for several months before surgery. Pt uses albuterol 1-2 per week. Pt denies any wheezing Acne Additional infor desiree: Pt has chronic [...] told by CT surgeon to see a director of clinical trials to get the acne treated before the [...] Pt has appointment with pectus clinic at [facility] in 10 days, Pt denies any sob [...]
--- OUTSIDE RECORDS SUMMARY | 2024-08-04 00:25 | XMS_ITS | Clinical Summary ---
Author Organization [facility] [employer] Address [address] [place] [address] Care Team Providers Care Wet Cleaner Machine Name Role Phone Saul Rivera MD Primary Care Provider [phone] Source Comments [facility] [employer],non-owned Affiliates and Associated Physician Practices is amultiple site organization consisting of ambulatory clinics and hospital sitesin [place], [place], [place] and [place]. This disclosure is being madepursuant to the Care Everywhere program and may not contain all information available regarding this patient. Last updated 18.[facility] [employer] Allergies No known active allergies Medications * [...] depression/on medication Acne conglobata 02/19/2018 Overview (04/23/2018): [employer] #[id number] 02/19/18 severe chest/back>face on Augmentin, clinda, BPO; Rx isotretinoin pending [employer] baseline labs 03/02/18 start isotretinon at 10 [...] age to complete this topic Care Teams Wet Cleaner Machine Relationship Specialty Start Date End Date Saul Rivera MD PCP - General 10/23/20
--- OUTSIDE RECORDS SUMMARY | 2024-08-04 00:25 | XMS_ITS | Referral Summary ---
Author Organization [facility] [employer] Address [address] [place] [address] Care Team Providers Care Editor Farm Journal Name Role Phone Saul Rivera MD Primary Care Provider [phone] Source Comments [facility] [employer],non-owned Affiliates and Associated Physician Practices is amultiple site organization consisting of ambulatory clinics and hospital sitesin [place], [place] and [place]. This disclosure is being madepursuant to the Care Everywhere program and may not contain all information available regarding this patient. Last updated 18.[facility] [employer] Allergies No known active allergies Medications * [...] depression/on medication Acne conglobata 02/19/2018 Overview (04/23/2018): [employer] #[id number] 02/19/18 severe chest/back>face on Augmentin, clinda, BPO; Rx isotretinoin pending [employer] baseline labs 03/02/18 start isotretinon at 10 [...] of Treatment Not on file Care Teams Editor Farm Journal Relationship Specialty Start Date End Date Saul Rivera MD PCP - General 10/23/20
--- OUTSIDE RECORDS SUMMARY | 2024-08-04 00:25 | XMS_ITS | Patient Health Summary ---
Author Organization [facility] Address [address] [place] [address] Care Team Providers Care Managing Jeweler Name Role Phone Saul Rivera MD Primary Care Provider [phone] Note from Formerly named [facility],non-owned Affiliates and Associated Physician Practices is amultiple site organization consisting of ambulatory clinics and hospital sitesin [place], [place], [place] and [place]. This disclosure is being madepursuant to the Care Everywhere program and may not contain all information available regarding this patient. Last updated 18.[facility] Allergies No known active allergies Medications [...] RENAL SCAN W DRUG (04/26/2021 11:33 AM GEOTHERMAL PRODUCTION MANAGER) Anatomical Region Laterality Modality Abdomen Nuclear Medicine 04/26/2021 11:0 0 AM GEOTHERMAL PRODUCTION MANAGER Impressions 04/26/2021 1:03 PM GEOTHERMAL PRODUCTION MANAGER Impression: 1. Mildly hydronephrotic right kidney no [...] 1:03 PM . Narrative 04/26/2021 1:03 PM GEOTHERMAL PRODUCTION MANAGER Procedure: Renal blood flow and function with [...] D.O. on 04/26/2021 1:03 PM . [facility] ORDERABLES * URINALYSIS AUTO - POINT OF CARE (AMB) [facility] (04/10/2021 11:42 AM CDT) Glucose UA neg Bilirubin UA POCT neg Ketones UA POCT neg Specific [place] UA 1.010 Blood Urine POCT neg pH UA 6.0 Protein UA neg Urobilinogen UA 0.2 mg/dL Nitrite UA neg WBC UA neg Urine URINE / Unknown 04/10/2021 1 1:42 AM CDT Brandy Carroll DO LAB - POINT OF CAR E ORDERABLES * URINALYSIS W/MICROSCOPIC NO CULTURE (01/08/2021 12:26 PM CDT) Color UA YELLOW YELLOW [facility] Appearance CLEAR CLEAR [facility] Specific [place] UA 1.005 1.001 - 1.035 [facility] pH [...] SEEN /LPF [facility] Comment: Test Performed at: [facility] [address] [place] [address] SALLIE MARES DO,MPH Urine URINE SPECIMEN OBTAINED BY CLEAN CATCH PROCEDURE / Unknown 01/08/2021 12:26 PM CDT 01/08/2021 12:27 PM CDT Kayli Orozco MD LAB - URINALYSIS ORD ERABLES [facility] [address] [place] [address] * RENAL FUNCTION PANEL (01/08/2021 12:26 PM [...] 5.1 g/dL [facility] Comment: Test Performed at: [facility] [address] [employer] [facility] [id number] SALLIE MARES DO,MPH Blood BLOOD SPECIMEN / Unknown 01/08/2021 12:26 PM CDT 01/08/2021 12:27 PM CDT Kayli Orozco MD LAB - CHEMISTRY ORDE RABVERITO Performing Organization Address [facility] de Phone Number [facility] [address] [place] [address] * (ABNORMAL) PROTEIN CREATININE RATIO URINE RANDOM [...] Comment: REPORT COMMENT: FASTING:NO Test Performed at: [facility] [address] [employer] [facility] [id number] SALLIE MARES DO,MPH Urine URINE SPECIMEN OBTAINED BY CLEAN CATCH PROCEDURE / Unknown 01/08/2021 12:26 PM CDT 01/08/2021 12:27 PM CDT Kayli Orozco MD LAB - URINE CHEMISTR Y ORDERABLES Performing Organization Address [facility] Co de Phone Number [facility] [address] [place] [address] * MICROALB/CREAT RATIO URINE RANDOM PANEL (12/12/2020 [...] within a diagnostic category. Test Performed at: [place] [address] SALLIE MARES DO,MPH 12/12/2020 2:07 PM CDT 12/12/2020 2:08 PM CDT Kayli Orozco MD LAB - URINE CHEMISTR Y ORDERABLES [facility] [address] [place] [address] * (ABNORMAL) PROTEIN ELECTROPH REFLX ROBERT UR TIMED (12/07/2020 3:11 PM CDT) Creatinine 24 Hour Urine 1.32 0.50 - 2.15 g/24 h [facility] Protein 24 Hour Urine 476(H) < OR = 114 mg/g creat [facility] Protein/Creatinine Ratio 0.476(H) < OR = 0.114 mg/mg creat [facility] Protein 24 Hour Urine 630(H) <150 mg/24 h [facility] Albumin 100 % [facility] Alpha-1 Globulin 0 % [facility] Qcakj-[id number]-[id number] 0 % [facility] Beta-Globulin 0 % [facility] Gamma Globulin 0 % [facility] Abnormal Protein Band [facility] Abnormal Protein Band 2 [facility] Abnormal Protein Band 3 [facility] Interpretation [facility] Comment: Agarose electrophoresis of urine reveals albumin. No abnormal protein is observed. REPORT COMMENT: FASTING:NO PATIENT UNABLE TO VOID; ADVISED TO RETURN FOR COLLECTION. Test Performed at: [facility] [place] [address] SALLIE MARES DO,MPH 12/07/2020 3:11 PM CDT 12/08/2020 3:05 AM CDT Kayli Orozco MD LAB - URINE CHEMISTR Y ORDERABLES [facility] [address] [place] [address] * US RETROPERITONEAL COMPLETE (11/27/2020 5:01 PM [...] as needed. Dictated by Radames Medrano MD (finance vice president). I, Dr. NIKA SLATER M.D. have personally [...] as needed. Dictated by Radames Medrano MD (finance vice president). Dr. NIKA Coon M.D. have personally reviewed [...] thoracolumbar levocurvature. Dictated by Lawson Andres MD (finance vice president). Gracie Coon, have personally reviewed the images [...] are 12 rib-bearing thoracic vertebrae and 5 ftg-fap-cvbpitp lumbar vertebrae. No segmentation anomalies are identified. [...] are 12 rib-bearing thoracic vertebrae and 5 deu-ctt-tdmnxxq lumbar vertebrae. No segmentation anomalies are identified. [...] thoracolumbar levocurvature. Dictated by Lawson Andres MD (finance vice president). I, Gracie Ramirez, have personally reviewed the [...] Comment: REPORT COMMENT: FASTING:YES Test Performed at: [place] [address] SALLIE MARES DO,MPH 04/09/2018 2:16 PM CDT 04/09/2018 2:16 PM CDT Janki Gupta MD LAB - HEMATOLOGY O RDERABLES Performing Organization Address [facility] de Phone Number [facility] [address] [place] [address] * TRIGLYCERIDES BLOOD (04/09/2018 2:16 PM CDT) Only the most recent of2 resultswithin the time period is included. Triglycerides 75 <90 mg/dL [facility] Comment: Test Performed at: [place] [address] SALLIE MARES DO,MPH 04/09/2018 2:16 PM CDT 04/09/2018 2:16 PM CDT Janki Gupta MD LAB - CHEMISTRY OR DERABLES Performing Organization Address [facility] Co de Phone Number [facility] [address] [place] [address] * COMPREHENSIVE METABOLIC PANEL (04/09/2018 2:16 PM [...] 46 U/L [facility] Comment: Test Performed at: [facility] [address] [place] [address] SALLIE MARES DO,MPH 04/09/2018 2:16 PM CDT 04/09/2018 2:16 PM CDT Janki Gupta MD LAB - CHEMISTRY OR DERABLES [facility] [address] [place] [address] * ECHO CONSULT - PEDIATRIC (02/03/2018 2:00 PM CDT) 02/03/2018 2:00 PM CDT Narrative Procedure Note Luigi Haile MD - 02/03/2018 [address] [place] [address] Fax Non-Congenital Transthoracic Report Pat.Name: RAJAT DENTON [place].ID: [id number] St.Date: 02/03/2018 Exam Time: 2:00:00 PM Study Type:Non-Congenital TTE Height: 158.6cm Weight: 65kg BSA: 1.67 m2 Age: 6 2000,17Y Sex: MALE BP: 91/37 Sonogrphr: Cierra Kincaid MATT Pat. Stat.:Outpatient CPT - 4: 89402 Reason for Study:Pectus carinatum, Evaluate for Marfan's History / Clinical:Echocardiogram to evaluate for Marfan's Procedures:2D Non-congenital, Doppler Complete, Color Flow Visit ID: [id number] SUMMARY: Impression: Technically difficult study due to [...] Chin MD ECHO ORDERABLES Performing Organization Address City/State/[facility] Co de Phone Number [facility] [address] [place] [address] * XR CHEST 2VW (01/28/2018 12:56 PM [...] CDT) Case Report Surgical Pathology Report Case: [id number] Authorizing Provider: Yordy Edward MD Collected: 10/27/2014 12:44 PM Ordering Location: ENDOSCOPY SERVICES Received: 10/27/2014 01:29 PM Pathologist: Mariaelena Borden MD Specimens: A) - Duodenal Biopsy B) - Stomach Biopsy C) - Esophageal Biopsy 10/30/2014 9:38 AM [facility] Final Diagnosis A. DUODENUM, BIOPSY: - NO HISTOPATHOLOGIC ABNORMALITY B. STOMACH, BIOPSY: - MILD CHRONIC INFLAMMATION C. ESOPHAGUS, BIOPSY: - NO HISTOPATHOLOGIC ABNORMALITY 10/30/2014 9:38 AM [facility] Clinical History The patient is a 13-year-old boy with abdominal pain who underwent upper endoscopy, the findings of which were found to be normal. 10/30/2014 9:38 AM [facility] Gross Description The specimens are received [...] as C1. (LAZARO/aurora) 10/30/2014 9:38 AM T [facility] Microscopic Description 9 H&E slides Sections of the duodenum show normal crypt to villous architecture with no increase in intraepithelial lymphocytes. Sections of the stomach show mild chronic inflammation with lamina propria plasma cells, lymphocytes and a mucosal lymphoid aggregate. There is no evidence of active inflammation. Sections of the esophagus show fragments of unremarkable squamous mucosa. 10/30/2014 9:38 AM T [facility] Disclaimer The performance characteristics of all immunohistochemical and indirect immunofluorescence stains (if any) cited in this report were determined by the Histopathology Laboratory of [facility] in compliance with CLIA `88 regulations. Some of these tests rely on the use of analyte-specific reagents and are subject to specific labeling requirements by the FDA. Such tests were developed by the [facility]opathology Laboratory of [facility] and have not been cleared or approved by the FDA. The FDA has determined that such clearance or approval is not necessary. These tests are used for clinical purposes and should not be regarded as investigational or for research. This case has been personally reviewed and interpreted by the attending (teaching) pathologist. 10/30/2014 9:38 AM T [facility] Pathology/Cytology ESOPHAGEAL BIOPSY SPECIMEN / Unknown 10/27/2014 12:44 PM CDT 10/27/2014 1:29 PM CDT Miscellaneous samples (specimen) BIOPSY OF STOMACH / Unknown 10/27/2014 12:44 PM CDT 10/27/2014 1:29 PM CDT Miscellaneous samples (specimen) ESOPHAGEAL BIOPSY SPECIMEN / Unknown 10/27/2014 12:44 PM CDT 10/27/2014 1:29 PM CDT Yordy Edward MD LAB - PATHOLOGY/CYT OLOGY ORDERABLES Performing Organization Address City/State/[facility] Co de Phone Number [facility] [address] [place] [address] * HELICOBACTER PYLORI UREASE (STL) (10/27/2014 12:41 PM CDT) Helicobacter pylori Urease Initial Negative Negative 10/28/2014 2:28 PM CDT [facility] Helicobacter pylori Urease Final Negative Negative 10/28/2014 2:28 PM CDT [facility] Microbiology GASTRIC ANTRAL BIOPSY SPECIMEN / Unknown 10/27/2014 12:41 PM CDT 10/27/2014 12:59 PM CDT Bonnie Alberto MEDICAL STAFF CREDENTIALING COORDINATOR-INSPECTION MACHINE TENDER LAB - MICROBIOLOG Y ORDERABLES Performing Organization Address City/State/[facility] de Phone Number [facility] [address] [place] [address] * EGD (10/27/2014 6:01 AM CDT) Report Endoscopy POC _ Patient Name: Rajat Denton Gender: Male Date of : 2000 Age: 13 Admit Type: Outpatient Attending MD: Yordy Edward MD Order #: [id number] _ Procedure: Upper GI endoscopy Indications: Generalized [...] and anxiety. Procedure Code(s): --- Professional --- 25070, Esophagogastrodu odenoscopy, flexible, transoral; with biopsy, single or multiple --- Technical --- 71853, Esophagogastrodu odenoscopy, flexible, transoral; with biopsy, single or multiple Diagnosis Code(s): --- Professional --- 789.07, Abdominal pain, generalized --- Technical --- 789.07, Abdominal pain, generalized CPT copyright 2013 [employer] [place] [employer]. All rights reserved. The codes documented in this report are preliminary and upon professor of chemistry review may be revised to meet current compliance requirements. Dr. Yordy Edward Yordy Edward MD 10/27/2014 12:54 PM This report has been signed electronically. Number of Addenda: 0 Note Initiated On: 10/27/2014 6:01 AM Procedure Date: 10/27/2014 6:01:49 AM This report has been signed electronically. [facility] 10/27/2014 6:01 AM CDT Bonnie Alberto MEDICAL STAFF CREDENTIALING COORDINATOR-[facility] GI PROCEDURE ORDE PAMEAL [facility] [address] [facility] [place] [address] * TISSUE TRANSGLUTAMINASE AB IGA (10/19/2014 12:23 PM CDT) Pathologist [facility] TTG Antibody IgA 1 <4 U/mL [facility] Comment: Value Interpretation <4 U/mL: No Antibody Detected >or=4 U/mL: Antibody Detected Test Performed at: [facility] [employer] [address] [place] [address] JONATHAN PRIDE MD,PHD Blood specimen (specimen) BLOOD SPECIMEN / Unknown 10/19/2014 12:23 PM CDT 10/19/2014 12:24 PM CDT Bonnie Alberto APRN-INSPECTION MACHINE TENDER LAB - SEROLOGY OR DERABLES Performing Organization Address [facility] Co de Phone Number [address] [address] * C-REACTIVE PROTEIN (10/19/2014 12:23 PM CDT) [facility] C-Reactive Protein 0.12 <0.80 mg/dL [facility] Comment: Please be advised that patients taking Carboxypenicillins may exhibit falsely decreased C-Reactive Protein levels due to an analytical interference in this assay. Test Performed at: [facility] [employer] [address] SALLIE MARES DO,MPH Blood specimen (specimen) BLOOD SPECIMEN / Unknown 10/19/2014 12:23 PM CDT 10/19/2014 12:24 PM CDT Bonnie Alberto APRN-[facility] LAB - CHEMISTRY O RDERABLES Performing Organization Address City/[facility] Co de Phone Number [facility] [phone] [place] [address] * IGA BLOOD (10/19/2014 12:23 PM CDT) [facility] IgA 231 70 - 432 mg/dL [facility] Comment: Test Performed at: [facility] [address] [facility] [employer] [address] SALLIE MARES DO,MPH Blood specimen (specimen) BLOOD SPECIMEN / Unknown 10/19/2014 12:23 PM CDT 10/19/2014 12:24 PM CDT Bonnie Camarillo Dolly MEDICAL STAFF CREDENTIALING COORDINATOR-[facility] LAB - CHEMISTRY O RDERABLES Performing Organization Address City/[facility]/ZIP Co de Phone Number [facility] [address] [place] [address] * LIPASE BLOOD (09/30/2014 3:12 PM CDT) Lipase 17 10 - 220 U/L 09/30/2014 3:42 PM CDT [facility] Blood BLOOD SPECIMEN / Unknown Lab Venipuncture / Unknown 09/30/2014 3:12 PM CDT 09/30/2014 3:21 PM CDT Dejah Emery MEDICAL STAFF CREDENTIALING COORDINATOR-[facility] LAB - SCORER SINGLE RY ORDERABLES Performing Organization Address [facility] Co de Phone Number [facility] [address] [place] [address] * AMYLASE BLOOD (09/30/2014 3:12 PM CDT) Amylase 54 5 - 65 U/L 09/30/2014 3:42 PM CDT [facility] Blood BLOOD SPECIMEN / Unknown Lab Venipuncture / Unknown 09/30/2014 3:12 PM CDT 09/30/2014 3:21 PM CDT Dejah Emery MEDICAL STAFF CREDENTIALING COORDINATOR-[facility] LAB - SCORER SINGLE RY ORDERABLES Performing Organization Address [facility] de Phone Number [facility] [address] [place] [address] * XR ABD OBSTR SERIES (09/30/2014 2:57 [...] Moderate amount of retained stool. Dejah Emery MEDICAL STAFF CREDENTIALING COORDINATOR-INSPECTION MACHINE TENDER DIAGNOSTIC IM AGING ORDERABLES Care Teams Managing Jeweler Relationship Specialty Start Date End Date Saul Rivera MD PCP - General 10/23/20
--- NOTE | 2024-08-04 07:03 | WPDHPUPDATE1 ---
History and Physical Update Update Date/Time: 08/04/24 07:03 Patient seen and examined in pre-operative holding area. No interval change in medical history or symptoms. Patient recalls previous discussion of benefits and alternatives to procedure. Continues to desire to proceed with left firfth metacarpal open reduction internal fixation. Reviewed procedure, post-op expectations and risks including but not limited to bleeding, infection, injury to tendon/nerve/vessel, decreased hand function, stiffness, RSD, no change or worsening of symptoms, malunion, nonunion. I discussed the possible use of assistants and their participation in the case. Patient stated understanding and signed the consent form wishing to proceed.
--- NOTE | 2024-08-04 07:04 | P.OP_ITS ---
Procedure Note - Detailed Date of Procedure 08/04/24 Pre-op Diagnosis fx left 5th metacarpal bone Post-op Diagnosis Same Procedure Performed left 5th mc fx orif Surgeon Mary Ann Amado MD Learning And Development Analyst gabriel torrez pa-c Anesthesia MAC Description of Procedure INFORMED CONSENT: The patient was seen and examined and marked in the pre-op area.? The patient signed the consent form. PROCEDURE IN DETAIL:The patient taken back to OR on the stretcher in supine position. Time out performed with anesthesia, surgeon and staff agreeing on patient's name site and surgery to be performed SCDs were placed on the lower extremities and inflated. A tourniquet was placed on {left} upper extremity and antibiotics given IV After anesthesia administered sedation I injected {6}cc 1%lido with epi and 0.5% marcaine plain for regional block The?{left upper extremity}?was prepped and draped in sterile fashion the??{left upper extremity} was? exsanguinated with Esmarch bandage and tourniquet inflated to 250mmHg The mini C-arm was draped and brought into the field. Multiple views were used to wait the fracture fragment. It was verified the reduction as possible. I proceeded with placing a 3.5 K-wire in retrograde fashion down the metacarpal shaft to maintain reduction. This K-wire placement was verified on multiple views of fluoroscopy and the length of the metacarpal was measured. A measurement was taken after 15 blade scalpel was used to make a longitudinal incision around the K-wire and Littler scissor dissection down to the joint surface. Next I proceeded with using the Arthrex drill to drill over this K- wire after having secured the K-wire into the carpus proximally. This was done under live fluoro to determine distance. I then proceeded with placing a 42x3.5mm Arthrex intrametacarpal screw achieving good compression and reduction of the fracture fragment. This was verified on multiple views of fluoroscopy. The K-wire was removed. I irrigated with normal saline. The extensor tendon was intact upon visualization. There was good cascade to the digits without sc issoring. The incision was closed with 3-0 Vicryl for dermis and 4-0 chromic for skin. A dressing of xeroform, 4x4, reji, and an ulnar gutter splint was applied for patient safety, security, and comfort and secured with an niki bandage after the tourniquet was let down noting the hand was warm and well perfused. The patient was then awaken from anesthesia and transferred to the recovery room in stable condition.? Complications - none EBL- 0cc Disposition - home in stable conditions Gabriel Torrez PA-C was essential for positioning, retraction, closure and dressing placement [facility] Billing Surgery - Charge Forward: Surgery Billing ([phone] [id number] for gabriel)
[2024-08-04] MEDS: LACTATED RINGERS 1,000 ML 30 ML IV CONT ×2 (12:00→14:13)
--- NOTE | 2024-08-04 12:37 | WPDANESEPPF ---
Anes - Initial Pre Proc Eval Procedure: Operation Date: 08/04/24 13:00 Proposed Procedures p Open Reduction Internal Fixation Left Fifth Metacarpal Fracture - Mary Ann Amado MD Date/Time: 08/04/24 12:37 Surgeon: Mary Ann Amado MD Pre Op Diagnosis: fx left 5th metacarpal bone Patient Data Age: 23 Gender: M Height: 1.85 m Weight: 78.9 kg Last Vital Signs Temp 36.8 C 08/04/24 12:00 Pulse 99 08/04/24 12:00 Resp 14 08/04/24 12:00 BP 118/76 08/04/24 12:00 Pulse Ox 98 08/04/24 12:00 O2 Del Method Room Air 08/04/24 12:00 Allergies Allergy/AdvReac Type Severity Reaction Status Date / Time No Known Allergies Allergy Verified 08/04/24 12:32 Home Medications ?Medication ?Instructions ?Recorded ?Confirmed ?Type acetaminophen 500 mg tablet 1,000 mg (2 x 500 mg) PO TID PRN 07/31/24 08/02/24 Rx chaparro 7 days #42 tabs ibuprofen 800 mg tablet 800 mg PO TID PRN pain 7 days #21 07/31/24 08/02/24 Rx tabs tadalafil 5 mg tablet (Cialis) 5 mg PO DAILY 08/02/24 08/02/24 History cephalexin 500 mg capsule 500 mg PO Q8H #21 caps 08/04/24 Rx hydrocodone 5 mg-acetaminophen 325 1 tablet PO Q6H PRN pain #12 tabs 08/04/24 Rx mg tablet Patient hx anesthesia problems: none Family hx anesthesia problems: none Results Review: All pre-operative results and documents have been reviewed as part of the pre-operative evaluation. [facility] Past Medical History Medical History (Updated 08/04/24 @ 10:49 by Gal Hammonds DO) Anxiety ADHD Social History Social History Smoking status: Never smoker Tobacco type: e-cigarettes/vaping Alcohol intake: current Drinks per week: 4 Living arrangements: with family Spiritual care concerns: No Anes - Eval Final PreProcedure Day of Procedure 08/04/24 12:37 Patient weight: normal Heart: regular rate and rhythm Lungs: clear to auscultation and normal air movement Airway: Mallampati scale class II Neurological: alert and oriented Last oral intake: >/= 8 hours ASA classification: II Emergent: no Anesthetic plan: proceed Anesthesia type and monitoring: general GIVS and standard monitoring Results Review: All pre-operative results and documents have been reviewed as part of the pre-operative evaluation. Informed Consent: The patient's anesthetic plan and its attendant risks and benefits were discussed with the patient/family/POA. Questions were solicited and answers provided to the satisfaction of the patient/family/POA.
[2024-08-04] MEDS: LIDO 1%/EPINEPHRINE 1:100,000 50 ML VIAL 10 ML INFILTRATE (12:50)
[2024-08-04] MEDS: ceFAZolin 2 GM/D5W 50 ML 2 GM/50 ML BAG IVPB (12:50)
[2024-08-04] MEDS: BUPivacaine HCL 0.5% 10 ML AMP INFILTRATE (12:50)
== END 2024-08-04 16:05 | disposition home or self-care (01) ==
PROVIDERS: Visit Provider Plastic Surgery
PROC: (CPT 26615; principal; 2024-08-04 13:00)
DX: S62.327A Displaced fracture of shaft of fifth metacarpal bone, left hand, initial encounter for closed fracture (principal); W22.09XA Striking against other stationary object, initial encounter
CPT/HCPCS: 26615; 99199; A9270; J0690; J2003; J2004; J2250; J2405; J2704; J3010; J7120

== ENCOUNTER 2024-08-17 17:13 | Outpatient (CLI) | payer BC, SELFPAY ==
--- NOTE | ~2024-08-17 | XR_ITS ---
HISTORY: S62.327A - Displaced fracture of shaft of fifth metacarpa... COMPARISON: 08/04/2024 TECHNIQUE: 3 views of the left hand were performed. FINDINGS: Screw fixation traverses a oblique fracture of the midshaft of the fifth metacarpal with callus forma tion and excellent alignment. Age-appropriate mineralization. IMPRESSION: As above. Reviewed, dictated and finalized at location A. MILL OPERATOR IMPRESSION: As above.
--- OUTSIDE RECORDS SUMMARY | 2024-08-17 17:55 | XMS_ITS | Continuity of Care Document ---
Author Organization [facility] Address [address] [facility] [place] [address] Phone Care Team Providers Care Director Inbound Sales Name Role Phone Saul Rivera MD Unavailable [...] Diagnoses Date Provider Providers Copied on Encounter [facility], [address] [place] [address] A, [place], [place], [address], [place] tel:[phone] [facility] No Information 3 Miguel Hughes. [address], [place], [place], [address] , [place]. tel:[phone] PREV VISIT, EST, AGE 18-39 [facility], [address], [place], [place], [address], [place] tel:[phone] [facility] physical (chief complaint) Encounter for general adult medical exam w abnormal findingsAcneAttenti on deficitGeneralized Anxiety DisorderHypokalemia Proteinuria 3 Miguel Hughes. [address], [place], [place], [address] , [place]. tel:[phone] OFFICE/OUTPA TIENT VISIT, [facility], [address], [place], [place], [address], [place] tel:[phone] [facility] ADD (chief complaint) acne1 (chief complaint) fever (chief complaint) AcneAttention deficitViral infection 3 Miguel Hughes. [address], [place], [place], [address] , [place]. tel:[phone] OFFICE/OUTPA TIENT VISIT, [facility], [address], [place], [place], [address], [place] tel:[phone] [facility] anxiety1 (chief complaint) Acne1 (chief complaint) ADD (chief complaint) Generalized Anxiety DisorderAcneAttenti on deficit 3 Miguel Hughes. [address], [place], [place], [address] , [place]. tel:[phone] OFFICE/OUTPA TIENT VISIT, [facility], [address], [place], [place], [address], [place] tel:[phone] [facility] anxiety1 (chief complaint) ADD (chief complaint) acne (chief complaint) pectus1 (chief complaint) Generalized Anxiety DisorderAttention deficitAcnePectus carinatum 3 Rivera Saul. [address], [place], [place], [address] , [place]. tel:[phone] OFFICE/OUTPA TIENT VISIT, EST [facility], [address], [place], [place], [address], [place] tel:[phone] [facility] ADD (chief complaint) anxiety1 (chief complaint) pectus1 (chief complaint) Attention deficitPectus carinatum 2 Rivera Saul. [address], [place], [place], [address] , [place]. tel:[phone] OFFICE/OUTPA TIENT VISIT, EST [facility], [address], [place], [place], [address], [place] tel:[phone] [facility] ADD (chief complaint) Attention deficit 2 Rivera Salu. [address], [place], [place], [address] , [place]. [phone] PREV VISIT, EST, AGE 18-39 [facility], [address], [place], [place], [address], [place] tel:[phone] [facility] physical (chief complaint) Encounter for general adult medical exam w abnormal findingsAcneGeneral ized Anxiety DisorderAttention deficitPectus carinatum 2 Rivera Saul. [address], [place], [place], [address] , [place]. tel:[phone] OFFICE/OUTPA TIENT VISIT, EST [facility], [address], [place], [place], [address], [place] tel:[phone] [facility] anxiety1 (chief complaint) ADD (chief complaint) pectus1 (chief complaint) Pectus carinatumEmphysemaG eneralized Anxiety DisorderAttention deficit 2 Rivera Saul. [address], [place], [place], [address] , [place]. tel:[phone] OFFICE/OUTPA TIENT VISIT, [facility], [address], [place], [place], [address], [place] tel:[phone] [facility] Acne (chief complaint) pectus1 (chief complaint) Pectus carinatumEmphysemaA cne 1 Miguel Hughes. [address], [place], [place], [address] , [place]. [phone] OFFICE/OUTPA TIENT VISIT, [facility], [address], [place], [place], [address], [place] tel:[phone] [facility] pectus (chief complaint) proteinuri a1 (chief complaint) truncal acne (chief complaint) AcnePectus carinatumProteinuri aDyspnea 1 Miguel Hughes. [address] [facility] [address], [place], [place], [address] , [place]. tel:[phone] OFFICE/OUTPA TIENT VISIT, [facility], [address], [place], [place], [address], [place] tel:[phone] [facility] pectus (chief complaint) proteinuri a1 (chief complaint) Pectus carinatumProteinuri a 0 1 Miguel Hughes. [address], [place], [place], [address] , [place]. [phone] OFFICE/OUTPA TIENT VISIT, [facility], [address], [place], [place], [address], [place] tel:[phone] [facility] low D (chief complaint) low kcl (chief complaint) proteinuri a1 (chief complaint) pectus1 (chief complaint) Pectus carinatumProteinuri aHypokalemiaVitamin D deficiency, unspecified Mar-0 - 1 Miguel Hughes. [address], [place], [place], [address] , [place]. tel:[phone] PREV VISIT, NEW, AGE 18-39 [facility], [address], [place], [place], [address], [place] tel:[phone] [facility] physical (chief complaint) Encounter for general adult medical exam w abnormal findingsPectus carinatumDyspneaGen eralized Anxiety DisorderAttention deficitPolyuria 1 Miguel Hughes. [address], [place], [place], [address] , [place]. tel:[phone] Family History Family Member Type Diagnosis Age At Onset Mother Problem lupus Father Problem of OD Brother Problem Alive and well Payers Payer name Insurance type Covered libertarian ID Authoriza tion(s) No Information Social History Type Description Quantity Date Captured Comments Alcohol Use Details Unknown Caffeine Use Details Unknown Tobacco Use Status No Information Smoking Status No Information Sex Male Chief Complaint And Reason For Visit No Information Plan Of Treatment Date Type Action Status Referral Ordered: Dermatology (related to Acne) ordered Referral Referred To: Roxy PAYTON, Tiffany Chang [address] [facility]
[address] [place], [place], [address] Ordered: Referrals: Tiffany Ramsey MD. Evaluate and [...] Singh [address] [place], [place], [id number] Ordered: Referrals: Allopathic & Osteopathic Physicians : [...] recurrent facial acne. Pt used to see stepdown nurse but he has not seen stepdown nurse for more than one year. Pt wants [...] is kind of confused about seeing a naval architect specialist vs PFT. Pt states that he saw naval architect specialist but nothing was done. He states [...] told by CT surgeon to see a stepdown nurse to get the acne treated before the carinatum repair. pectus Pt has severe pe ctus carinatum. Pt has appointment with pectus clinic at [facility] in 10 days, Pt denies any [...]
== END 2024-08-17 17:14 | disposition home or self-care (01) ==
PROVIDERS: PCP Physician Assistant Surgical; Visit Provider Physician Assistant Surgical
DX: S62.327D Displaced fracture of shaft of fifth metacarpal bone, left hand, subsequent encounter for fracture with routine healing (principal); X58.XXXD Exposure to other specified factors, subsequent encounter
CPT/HCPCS: 73130

== ENCOUNTER 2024-09-14 10:41 | Outpatient (CLI) | payer BC, SELFPAY ==
--- NOTE | ~2024-09-14 | XR_ITS ---
Left Hand Technique: PA, oblique, and lateral views were obtained. Clinical History: Fifth metacarpal fracture COMPARISON: 08/17/2024 Findings: Patient again noted be status post ORIF for fracture of the fifth metacarpal shaft. Osseous and orthopedic hardware alignment is unchanged. Fracture line still visible as a linear lucency. Emmy nt spaces are preserved. Soft tissues are unremarkable. Impression: Stable fracture of the fifth metacarpal shaft, status post ORIF. Stable osseous and orthopedic hardwa re alignment. Reviewed, dictated and finalized at location M. Impression: Stable fracture of the fifth metacarpal shaft, status post ORIF. Stable osseous and orthopedic hardware alignment.
--- OUTSIDE RECORDS SUMMARY | 2024-09-14 12:09 | XMS_ITS | Clinical Summary ---
Author Organization [facility] Address [address] [place] [address] Care Team Providers Care Backside Grinder Name Role Phone Saul Rivera MD Primary Care Provider [phone] Source Comments [facility],non-owned Affiliates and Associated Physician Practices is amultiple site organization consisting of ambulatory clinics and hospital sitesin [place], [place], [place] and [place]. This disclosure is being madepursuant to the Care Everywhere program and may not contain all information available regarding this patient. Last updated 18.[facility] Allergies No known active allergies Medications * [...] depression/on medication Acne conglobata 02/19/2018 Overview (04/23/2018): [facility] #[id number] 02/19/18 severe chest/back>face on Augmentin, clinda, BPO; Rx isotretinoin pending [facility] baseline labs 03/02/18 start isotretinon at 10 [...] series) 2016 MENINGOCOCCAL (Group B) VACC INE SHARED DECISION-MAKING (1 of 2 - Standard) 2017 HEPATITIS [...] patient's age to complete this topic MENINGOCOCCAL GROUPS A/C/Y/W VACCINE Aged Out No longer eligible b ased on patient's age to complete this topic PNEUMOCOCCAL VACCINE Aged Out No long er eligible based on patient's age to complete this topic Care Teams Backside Grinder Relationship Specialty Start Date End Date Saul Rivera MD PCP - General 10/23/20
--- OUTSIDE RECORDS SUMMARY | 2024-09-14 12:09 | XMS_ITS | Referral Summary ---
Author Organization [facility] Address [address] [place] [address] Care Team Providers Care Floor Polisher Name Role Phone Saul Rivera MD Primary Care Provider [phone] Allergies No known active allergies Medications sertraline [...] on file Legal Sex Male 8:06 AM GIZZARD PEELER Gender Identity Not on file Sexual Orientation Not on file Last Filed Vital Signs Vital Sign Reading Time Taken Comments Blood Pressure 104/60 07/31/2022 10:40 AM GIZZARD PEELER Pulse 86 07/31/2022 10:40 AM GIZZARD PEELER Temperature 36.4 C (97.5 F) 07/04/2022 4:25 PM GIZZARD PEELER Respiratory Rate 18 07/04/2022 4:25 PM GIZZARD PEELER Oxygen Saturation 100% 07/31/2022 10:40 AM GIZZARD PEELER Inhaled Oxygen Concentration - - Weight 67 kg (147 lb 9.6 oz) 07/31/2022 10:40 AM GIZZARD PEELER Height 187.5 cm (6' 1.82 ) 07/31/2022 10:[address] Body Mass Index 19.04 07/31/2022 10:40 AM GIZZARD PEELER Plan of Treatment Not on file Medical Devices Explanted Type Area Machine Heel Seat Laster Device Identifier Shelf Expiration Date Model / Serial / Lot [employer] [id number] Reagan 18cm Strut Pectus Bar Support Stainless Steel - [id number] Implanted:Qty: 1 on 08/06/2021 by Francisco Berg MD at [facility] Explanted:Qty: 1 on 07/04/2022 by Deep Nova MD at [facility] N/A: Chest [employer] [id number] / / Insurance IDPA Al Detal OOS BLUE Done. CHOICE [facility] Al Detal [facility] [employer] ACCESS OOS IDPA Advance Directives For more information, please contact: [phone] Documents on File Type Date Recorded Patient Nuclear Equipment Sales Engineer Expl anation Advance Directives and Livin [...] 2:50 PM 08/10/2021 5:02 PM Care Teams Floor Polisher Relationship Specialty Start Date End Date Saul Rivera MD [address] [place] [address] PCP - General Family Medicine 08/14/20
--- OUTSIDE RECORDS SUMMARY | 2024-09-14 12:09 | XMS_ITS | Clinical Summary ---
Author Organization [facility] Address [address] [place] [address] Care Team Providers Care Supervisor Ship Maintenance Services Name Role Phone Saul Rivera MD Primary [...] on file Legal Sex Male 8:06 AM GRIPPER INSTALLER Gender Identity Not on file Sexual Orientation Not on file Obstetrics History Last Filed Vital Signs Vital Sign Reading Time Taken Comments Blood Pressure 104/60 07/31/2022 10:40 AM GRIPPER INSTALLER Pulse 86 07/31/2022 10:40 AM GRIPPER INSTALLER Temperature 36.4 C (97.5 F) 07/04/2022 4:25 PM GRIPPER INSTALLER Respiratory Rate 18 07/04/2022 4:25 PM GRIPPER INSTALLER Oxygen Saturation 100% 07/31/2022 10:40 AM GRIPPER INSTALLER Inhaled Oxygen Concentration - - Weight 67 kg (147 lb 9.6 oz) 07/31/2022 10:40 AM GRIPPER INSTALLER Height 187.5 cm (6' 1.82 ) 07/31/2022 10:[address] Body Mass Index 19.04 07/31/2022 10:40 AM GRIPPER INSTALLER Plan of Treatment Health Maintenance Due Date Last Done Comments Depression Screening 2001 Hepatitis C Screening 2001 Pneumococcal vaccine <65 (1 of 1 - PPSV23) 10/30/2007 05/03/2003, 05/03/2003, 10/31/2002, Additional history exists Meningococcal B Vaccine (1 o f 2 - Standard) 2017 HPV Vaccines (2 - Male 3-dos e series) 01/27/2018 12/30/2017 Regular Well Visit/Exam 18-64 10/30/2019 DTaP/Tdap/Td Vaccine (7 - Td or Tdap) 02/25/2023 02/25/2013, 11/05/2005, 05/03/2003, Additional history exists Influenza Vaccine (#1) 2024 08/10/2021 Hepatitis B Screening Completed 05/17/2002 , 01/01/2002, 2001, Additional history exists Varicella Vaccines Completed 03/05/2016, 10/31/2002 Medical Devices Explanted Type Area Supervisor Wet End Device Identifier Shelf Expiration Date Model / Serial / Lot [employer] [id number] Reagan 18cm Strut Pectus Bar Support Stainless Steel - [id number] Implanted:Qty: 1 on 08/06/2021 by Francisco Berg MD at [facility] Explanted:Qty: 1 on 07/04/2022 by Deep Nova MD at [facility] N/A: Chest [employer] [id number] / / Insurance IDAZ [employer] [facility] Address: [address] [place] [address] [employer] ACC[place] CHOICE [place] ID[place] BLUE ACCESS OOS [address] [place] [address] BLUE ACCESS OOS IDPA Advance Directives For more information, please contact: [phone] Documents on File Type Date Recorded Patient Automatic Casting Machine Operator Expl anation Advance Directives and Livin g [...] 2:50 PM 08/10/2021 5:02 PM Care Teams Supervisor Ship Maintenance Services Relationship Specialty Start Date End Date Saul Rivera MD [address] [place] [address] PCP - General Family Medicine 08/14/20
== END 2024-09-14 10:42 | disposition home or self-care (01) ==
PROVIDERS: Visit Provider Plastic Surgery
DX: S62.327A Displaced fracture of shaft of fifth metacarpal bone, left hand, initial encounter for closed fracture (principal)
CPT/HCPCS: 73130

== ENCOUNTER 2024-10-11 00:25 | Emergency (ER) | payer BC, SELFPAY ==
--- OUTSIDE RECORDS SUMMARY | 2024-10-11 00:27 | XMS_ITS | Clinical Summary ---
Author Organization [facility] [employer] Address [address] [place] [address] Care Team Providers Care Screen Handler Name Role Phone Saul Rivera MD Primary Care Provider [phone] Source Comments [facility] [employer],non-owned Affiliates and Associated Physician Practices is amultiple site organization consisting of ambulatory clinics and hospital sitesin [place], [place], [place] and [place]. This disclosure is being madepursuant to the Care Everywhere program and may not contain all information available regarding this patient. Last updated 18.[facility] [employer] Allergies No known active allergies Medications * Be aware that medications may not be up to date on this document. Alwaysverify current medications with the patient. diphenhydrAMINE (BENADRYL) 25 MG tablet Take by [...] - 6 hours as needed as needed 1 Active clindamycin (CLEOCIN T) 1 % solution APPLY 1 APPLICATION ON THE FACE AND TRUNK TWICE DAILY 1 Active escitalopram (LEXAPRO) 10 MG tablet 0 Active minocycline (MINOCIN) 100 MG capsule Take 1 capsule by mouth every 12 hours 1 Active Active Problems Patient Care Coordination No te Formatting of this note migh t be different from the original. [facility] valid 03/15/18-09/13/18 Problem Noted Date Diagnosed Date Anxiety 04/23/2018 Overview (04/23/2018): adolescent onset 04/23/18 very self-conscious about pectus>acne; home-school GED program with special training ; denies feelings of self-harm; Psych eval planned pending 05/12 counselor assessment brother with h/o depression/on medication Acne conglobata 02/19/2018 Overview (04/23/2018): [facility] #[id number] 02/19/18 severe chest/back>face on Augmentin, clinda, BPO; Rx isotretinoin pending [facility] baseline labs 03/02/18 start isotretinon at 10 [...] at Not on file Legal Sex Male 5:41 AM CAMPUS AIDE Gender Identity Not on file Sexual Orientation [...] VACCINE (1 - 2023-2 5 season) 2024 DEPRESSION SCREENING 06/15/2024 INFLUENZA VACCINE (Season Ended) 2025 ZOSTER VACCINE (1 of 2) 10/30/2051 HIB VACCINE Aged Out No longer eligi ble based on patient's age to complete this topic MENINGOCOCCAL GROUPS A/C/Y/W VACCINE Aged Out No longer eligible b ased on patient's age to complete this topic PNEUMOCOCCAL VACCINE Aged Out No long er eligible based on patient's age to complete this topic Insurance [place] MEDICAID - OUT OF STATE ANTH ANTHEM MEDICAID - OUT OF STATE ANTH MEDICAID - OUT OF STATE Care Teams Screen Handler Relationship Specialty Start Date End Date Saul Rivera MD PCP - General 10/23/20
--- OUTSIDE RECORDS SUMMARY | 2024-10-11 00:27 | XMS_ITS | Clinical Summary ---
Author Organization [facility] Address [address] [place] [address] Care Team Providers Care Portal Architect Name Role Phone Saul Rivera MD Primary Care Provider [phone] Allergies No known active allergies Medications sertraline [...] on file Legal Sex Male 8:06 AM CAGE FIGHTER Gender Identity Not on file Sexual Orientation Not on file Obstetrics History Last Filed Vital Signs Vital Sign Reading Time Taken Comments Blood Pressure 104/60 07/31/2022 10:40 AM CAGE FIGHTER Pulse 86 07/31/2022 10:40 AM CAGE FIGHTER Temperature 36.4 C (97.5 F) 07/04/2022 4:25 PM CAGE FIGHTER Respiratory Rate 18 07/04/2022 4:25 PM CAGE FIGHTER Oxygen Saturation 100% 07/31/2022 10:40 AM CAGE FIGHTER Inhaled Oxygen Concentration - - Weight 67 kg (147 lb 9.6 oz) 07/31/2022 10:40 AM CAGE FIGHTER Height 187.5 cm (6' 1.82 ) 07/31/2022 10:[address] Body Mass Index 19.04 07/31/2022 10:40 AM CAGE FIGHTER Plan of Treatment Health Maintenance Due Date [...] 03/05/2016, 10/31/2002 Medical Devices Explanted Type Area Coil Placer Device Identifier Shelf Expiration Date Model / Serial / Lot [employer] [id number] Reagan 18cm Strut Pectus Bar Support Stainless Steel - [id number] Implanted:Qty: 1 on 08/06/2021 by Francisco Berg MD at [facility] Explanted:Qty: 1 on 07/04/2022 by Deep Nova MD at [facility] N/A: Chest [employer] [id number] / / Insurance IDNM [employer] ACCESS CHOICE [place] IDPA BLUE ACCESS [address] [place] [address] BLUE ACCESS OOS IDPA Advance Directives For more information, please contact: [phone] Documents on File Type Date Recorded Patient Financial Aid Director Expl anation Advance Directives and Livin g [...] 2:50 PM 08/10/2021 5:02 PM Care Teams Portal Architect Relationship Specialty Start Date End Date Saul Rivera MD [address] [place] [address] PCP - General Family Medicine 08/14/20
--- OUTSIDE RECORDS SUMMARY | 2024-10-11 00:27 | XMS_ITS | Continuity of Care Document ---
Author Organization [facility] Address [address] [place] [address] Phone Care Team Providers Care Cloth Painter Name Role Phone Saul Rivera MD Unavailable [...] Diagnoses Date Provider Providers Copied on Encounter [facility], [address] [place] [address] A, [place], [place], [address], [place] tel:[phone] [facility] No Information 3 Miguel Hughes. [address], [place], [place], [address] , [place]. tel:[phone] PREV VISIT, EST, AGE 18-39 [facility], [address], [place], [place], [address], [place] tel:[phone] [facility] physical (chief complaint) Encounter for general adult medical exam w abnormal findingsAcneAttenti on deficitGeneralized Anxiety DisorderHypokalemia Proteinuria 3 Miguel Hughes. [address], [place], [place], [address] , [place]. tel:[phone] OFFICE/OUTPA TIENT VISIT, [facility], [address], [place], [place], [address], [place] tel:[phone] [facility] ADD (chief complaint) acne1 (chief complaint) fever (chief complaint) AcneAttention deficitViral infection 3 Miguel Hughes. [address], [place], [place], [address] , [place]. tel:[phone] OFFICE/OUTPA TIENT VISIT, [facility], [address], [place], [place], [address], [place] tel:[phone] [facility] anxiety1 (chief complaint) Acne1 (chief complaint) ADD (chief complaint) Generalized Anxiety DisorderAcneAttenti on deficit 3 Miguel Hughes. [address], [place], [place], [address] , [place]. tel:[phone] OFFICE/OUTPA TIENT VISIT, [facility], [address], [place], [place], [address], [place] tel:[phone] [facility] anxiety1 (chief complaint) ADD (chief complaint) acne (chief complaint) pectus1 (chief complaint) Generalized Anxiety DisorderAttention deficitAcnePectus carinatum 3 Rivera Saul. [address], [place], [place], [address] , [place]. tel:[phone] OFFICE/OUTPA TIENT VISIT, EST [facility], [address], [place], [place], [address], [place] tel:[phone] [facility] ADD (chief complaint) anxiety1 (chief complaint) pectus1 (chief complaint) Attention deficitPectus carinatum 2 Rivera Saul. [address], [place], [place], [address] , [place]. tel:[phone] OFFICE/OUTPA TIENT VISIT, EST [facility], [address], [place], [place], [address], [place] tel:[phone] [facility] ADD (chief complaint) Attention deficit 2 Rivera Saul. [address], [place], [place], [address] , [place]. [phone] PREV VISIT, EST, AGE 18-39 [facility], [address], [place], [place], [address], [place] tel:[phone] [facility] physical (chief complaint) Encounter for general adult medical exam w abnormal findingsAcneGeneral ized Anxiety DisorderAttention deficitPectus carinatum 2 Rivera Saul. [address], [place], [place], [address] , [place]. tel:[phone] OFFICE/OUTPA TIENT VISIT, EST [facility], [address], [place], [place], [address], [place] tel:[phone] [facility] anxiety1 (chief complaint) ADD (chief complaint) pectus1 (chief complaint) Pectus carinatumEmphysemaG eneralized Anxiety DisorderAttention deficit 2 Rivera Saul. [address], [place], [place], [address] , [place]. tel:[phone] OFFICE/OUTPA TIENT VISIT, [facility], [address], [place], [place], [address], [place] tel:[phone] [facility] Acne (chief complaint) pectus1 (chief complaint) Pectus carinatumEmphysemaA cne 1 Miguel Hughes. [address], [place], [place], [address] , [place]. [phone] OFFICE/OUTPA TIENT VISIT, [facility], [address], [place], [place], [address], [place] tel:[phone] [facility] pectus (chief complaint) proteinuri a1 (chief complaint) truncal acne (chief complaint) AcnePectus carinatumProteinuri aDyspnea 1 Miguel Hughes. [address] [facility] [address], [place], [place], [address] , [place]. tel:[phone] OFFICE/OUTPA TIENT VISIT, [facility], [address], [place], [place], [address], [place] tel:[phone] [facility] pectus (chief complaint) proteinuri a1 (chief complaint) Pectus carinatumProteinuri a 0 1 Miguel Hughes. [address], [place], [place], [address] , [place]. [phone] OFFICE/OUTPA TIENT VISIT, [facility], [address], [place], [place], [address], [place] tel:[phone] [facility] low D (chief complaint) low kcl (chief complaint) proteinuri a1 (chief complaint) pectus1 (chief complaint) Pectus carinatumProteinuri aHypokalemiaVitamin D deficiency, unspecified Mar-0 - 1 Miguel Hughes. [address], [place], [place], [address] , [place]. tel:[phone] PREV VISIT, NEW, AGE 18-39 [facility], [address], [place], [place], [address], [place] tel:[phone] [facility] physical (chief complaint) Encounter for general adult medical exam w abnormal findingsPectus carinatumDyspneaGen eralized Anxiety DisorderAttention deficitPolyuria 1 Miguel Hughes. [address], [place], [place], [address] , [place]. tel:[phone] Family History Family Member Type Diagnosis Age [...] Referral Referred To: Roxy PAYTON, Tiffany Chang [address] [facility]
[address] [place], [place], [id number] Ordered: Referrals: Tiffany Ramsey MD. Evaluate and [...] Singh [address] [place], [place], [id number] Ordered: Referrals: Allopathic & Osteopathic Physicians : [...] recurrent facial acne. Pt used to see senior sharepoint developer but he has not seen senior sharepoint developer for more than one year. Pt wants [...] is kind of confused about seeing a sales support specialist vs PFT. Pt states that he saw sales support specialist but nothing was done. He states [...] told by CT surgeon to see a senior sharepoint developer to get the acne treated before the [...] Pt has appointment with pectus clinic at [facility] in 10 days, Pt denies any [...]
--- OUTSIDE RECORDS SUMMARY | 2024-10-11 00:27 | XMS_ITS | Referral Summary ---
Author Organization [facility] Address [address] [place] [address] Care Team Providers Care Tree Sapper Name Role Phone Saul Rivera MD Primary Care Provider [phone] Allergies No known active allergies Medications sertraline [...] on file Legal Sex Male 8:06 AM STEEL ROLLER Gender Identity Not on file Sexual Orientation Not on file Last Filed Vital Signs Vital Sign Reading Time Taken Comments Blood Pressure 104/60 07/31/2022 10:40 AM STEEL ROLLER Pulse 86 07/31/2022 10:40 AM STEEL ROLLER Temperature 36.4 C (97.5 F) 07/04/2022 4:25 PM STEEL ROLLER Respiratory Rate 18 07/04/2022 4:25 PM STEEL ROLLER Oxygen Saturation 100% 07/31/2022 10:40 AM STEEL ROLLER Inhaled Oxygen Concentration - - Weight 67 kg (147 lb 9.6 oz) 07/31/2022 10:40 AM STEEL ROLLER Height 187.5 cm (6' 1.82 ) 07/31/2022 10:[address] Body Mass Index 19.04 07/31/2022 10:40 AM STEEL ROLLER Plan of Treatment Not on file Medical Devices Explanted Type Area Veterinary Receptionist Device Identifier Shelf Expiration Date Model / Serial / Lot [employer] [id number] Reagan 18cm Strut Pectus Bar Support Stainless Steel - [id number] Implanted:Qty: 1 on 08/06/2021 by Francisco Berg MD at [facility] Explanted:Qty: 1 on 07/04/2022 by Deep Nova MD at [facility] N/A: Chest [employer] [id number] / / Insurance IDPA [employer] OOS BLUE irisnote CHOICE [place] [facility] [employer] [facility] [employer] ACCESS OOS IDPA Advance Directives For more information, please contact: [phone] Documents on File Type Date Recorded Patient Car Rider Expl anation Advance Directives and Livin g [...] 2:50 PM 08/10/2021 5:02 PM Care Teams Tree Sapper Relationship Specialty Start Date End Date Saul Rivera MD [address] [place] [address] PCP - General Family Medicine 08/14/20
[2024-10-11 00:49] VITALS: BP 131/99; PULSE 100; RESP 18; TEMP 36.7; O2SAT 100
--- NOTE | 2024-10-11 04:24 | PC.NURSE ---
Patient called for room placement, not in waiting room
--- OUTSIDE RECORDS SUMMARY | 2024-10-11 04:26 | XMS_ITS | Clinical Summary ---
Author Organization [facility] Address [address] [place] [address] Care Team Providers Care Outside Plant Field Engineer Name Role Phone Saul Rivera MD Primary Care Provider [phone] Source Comments [facility],non-owned Affiliates and Associated Physician Practices is amultiple site organization consisting of ambulatory clinics and hospital sitesin [place], [place], [place] and [place]. This disclosure is being madepursuant to the Care Everywhere program and may not contain all information available regarding this patient. Last updated 18.[facility] Allergies No known active allergies Medications * [...] from the original. 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
--- OUTSIDE RECORDS SUMMARY | 2024-10-11 04:26 | XMS_ITS | Continuity of Care Document ---
Author Organization [facility] Address [address] [place] [address] Phone Care Team Providers Care Skip Miner Name Role Phone Saul Rivera MD Unavailable [...] Diagnoses Date Provider Providers Copied on Encounter [facility], [address] [place] [address] A, [place], [place], [address], [place] tel:[phone] [facility] No Information 3 Miguel Hughes. [address], [place], [place], [address] , [place]. tel:[phone] PREV VISIT, EST, AGE 18-39 [facility], [address], [place], [place], [address], [place] tel:[phone] [facility] physical (chief complaint) Encounter for general adult medical exam w abnormal findingsAcneAttenti on deficitGeneralized Anxiety DisorderHypokalemia Proteinuria 3 Miguel Hughes. [address], [place], [place], [address] , [place]. tel:[phone] OFFICE/OUTPA TIENT VISIT, [facility], [address], [place], [place], [address], [place] tel:[phone] [facility] ADD (chief complaint) acne1 (chief complaint) fever (chief complaint) AcneAttention deficitViral infection 3 Miguel Hughes. [address], [place], [place], [address] , [place]. tel:[phone] OFFICE/OUTPA TIENT VISIT, [facility], [address], [place], [place], [address], [place] tel:[phone] [facility] anxiety1 (chief complaint) Acne1 (chief complaint) ADD (chief complaint) Generalized Anxiety DisorderAcneAttenti on deficit 3 Miguel Hughes. [address], [place], [place], [address] , [place]. tel:[phone] OFFICE/OUTPA TIENT VISIT, [facility], [address], [place], [place], [address], [place] tel:[phone] [facility] anxiety1 (chief complaint) ADD (chief complaint) acne (chief complaint) pectus1 (chief complaint) Generalized Anxiety DisorderAttention deficitAcnePectus carinatum 3 Rivera Saul. [address], [place], [place], [address] , [place]. tel:[phone] OFFICE/OUTPA TIENT VISIT, EST [facility], [address], [place], [place], [address], [place] tel:[phone] [facility] ADD (chief complaint) anxiety1 (chief complaint) pectus1 (chief complaint) Attention deficitPectus carinatum 2 Rivera Saul. [address], [place], [place], [address] , [place]. tel:[phone] OFFICE/OUTPA TIENT VISIT, EST [facility], [address], [place], [place], [address], [place] tel:[phone] [facility] ADD (chief complaint) Attention deficit 2 Rivera Saul. [address], [place], [place], [address] , [place]. [phone] PREV VISIT, EST, AGE 18-39 [facility], [address], [place], [place], [address], [place] tel:[phone] [facility] physical (chief complaint) Encounter for general adult medical exam w abnormal findingsAcneGeneral ized Anxiety DisorderAttention deficitPectus carinatum 2 Rivera Saul. [address], [place], [place], [address] , [place]. tel:[phone] OFFICE/OUTPA TIENT VISIT, EST [facility], [address], [place], [place], [address], [place] tel:[phone] [facility] anxiety1 (chief complaint) ADD (chief complaint) pectus1 (chief complaint) Pectus carinatumEmphysemaG eneralized Anxiety DisorderAttention deficit 2 Rivera Saul. [address], [place], [place], [address] , [place]. tel:[phone] OFFICE/OUTPA TIENT VISIT, [facility], [address], [place], [place], [address], [place] tel:[phone] [facility] Acne (chief complaint) pectus1 (chief complaint) Pectus carinatumEmphysemaA cne 1 Miguel Hughes. [address], [place], [place], [address] , [place]. [phone] OFFICE/OUTPA TIENT VISIT, [facility], [address], [place], [place], [address], [place] tel:[phone] [facility] pectus (chief complaint) proteinuri a1 (chief complaint) truncal acne (chief complaint) AcnePectus carinatumProteinuri aDyspnea [address] [facility] [address], [place], [place], [address] , [place]. tel:[phone] OFFICE/OUTPA TIENT VISIT, [facility], [address], [place], [place], [address], [place] tel:[phone] [facility] pectus (chief complaint) proteinuri a1 (chief complaint) Pectus carinatumProteinuri a 0 1 Miguel Hughes. [address], [place], [place], [address] , [place]. [phone] OFFICE/OUTPA TIENT VISIT, [facility], [address], [place], [place], [address], [place] tel:[phone] [facility] low D (chief complaint) low kcl (chief complaint) proteinuri a1 (chief complaint) pectus1 (chief complaint) Pectus carinatumProteinuri aHypokalemiaVitamin D deficiency, unspecified Mar-0 - 1 Miguel Hughes. [address], [place], [place], [address] , [place]. tel:[phone] PREV VISIT, NEW, AGE 18-39 [facility], [address], [place], [place], [address], [place] tel:[phone] [facility] physical (chief complaint) Encounter for general adult medical exam w abnormal findingsPectus carinatumDyspneaGen eralized Anxiety DisorderAttention deficitPolyuria 1 Miguel Hughes. [address], [place], [place], [address] , [place]. tel:[phone] Family History Family Member Type Diagnosis Age [...] Referral Referred To: Roxy PAYTON, Tiffany Chang [address] [facility]
[address] [place], [place], [id number] Ordered: Referrals: Tiffany Ramsey MD. Evaluate and [...] Singh [address] [place], [place], [id number] Ordered: Referrals: Allopathic & Osteopathic Physicians : [...] recurrent facial acne. Pt used to see lot attendant but he has not seen lot attendant for more than one year. Pt wants [...] is kind of confused about seeing a quality control specialist vs PFT. Pt states that he saw quality control specialist but nothing was done. He states [...] told by CT surgeon to see a lot attendant to get the acne treated before the [...] Pt has appointment with pectus clinic at [facility] in 10 days, Pt denies any [...]
--- OUTSIDE RECORDS SUMMARY | 2024-10-11 04:26 | XMS_ITS | Referral Summary ---
Author Organization [facility] Address [address] [place] [address] Care Team Providers Care Quality Improvement Engineer Name Role Phone Saul Rivera MD [...] on file Legal Sex Male 8:06 AM COMPRESS MACHINE OPERATOR Gender Identity Not on file Sexual Orientation Not on file Last Filed Vital Signs Vital Sign Reading Time Taken Comments Blood Pressure 104/60 07/31/2022 10:40 AM COMPRESS MACHINE OPERATOR Pulse 86 07/31/2022 10:40 AM COMPRESS MACHINE OPERATOR Temperature 36.4 C (97.5 F) 07/04/2022 4:25 PM COMPRESS MACHINE OPERATOR Respiratory Rate 18 07/04/2022 4:25 PM COMPRESS MACHINE OPERATOR Oxygen Saturation 100% 07/31/2022 10:40 AM COMPRESS MACHINE OPERATOR Inhaled Oxygen Concentration - - Weight 67 kg (147 lb 9.6 oz) 07/31/2022 10:40 AM COMPRESS MACHINE OPERATOR Height 187.5 cm (6' 1.82 ) 07/31/2022 10:[address] Body Mass Index 19.04 07/31/2022 10:40 AM COMPRESS MACHINE OPERATOR Plan of Treatment Not on file Medical Devices Explanted Type Area Way Inspector Device Identifier Shelf Expiration Date Model / Serial / Lot [employer] [id number] Reagan 18cm Strut Pectus Bar Support Stainless Steel - [id number] Implanted:Qty: 1 on 08/06/2021 by Francisco Berg MD at [facility] Explanted:Qty: 1 on 07/04/2022 by Deep Nova MD at [facility] N/A: Chest [employer] [id number] / / Insurance IDPA [employer] OOS BLUE [employer] CHOICE [place] [facility] [employer] [facility] Almin[employer] ACCESS OOS IDPA Advance Directives For more information, please contact: [phone] Documents on File Type Date Recorded Patient Energy Efficiency Finance Manager Expl anation Advance Directives and Livin g [...] 2:50 PM 08/10/2021 5:02 PM Care Teams Quality Improvement Engineer Relationship Specialty Start Date End Date Saul Rivera MD [address] [place] [address] PCP - General Family Medicine 08/14/20
--- OUTSIDE RECORDS SUMMARY | 2024-10-11 04:26 | XMS_ITS | Clinical Summary ---
Author Organization [facility] Address [address] [place] [address] Care Team Providers Care Administrative Receptionist Name Role Phone Saul Rivera MD Primary Care Provider [phone] Allergies No known active allergies Medications sertraline [...] on file Legal Sex Male 8:06 AM PRINTER APPRENTICE Gender Identity Not on file Sexual Orientation Not on file Obstetrics History Last Filed Vital Signs Vital Sign Reading Time Taken Comments Blood Pressure 104/60 07/31/2022 10:40 AM PRINTER APPRENTICE Pulse 86 07/31/2022 10:40 AM PRINTER APPRENTICE Temperature 36.4 C (97.5 F) 07/04/2022 4:25 PM PRINTER APPRENTICE Respiratory Rate 18 07/04/2022 4:25 PM PRINTER APPRENTICE Oxygen Saturation 100% 07/31/2022 10:40 AM PRINTER APPRENTICE Inhaled Oxygen Concentration - - Weight 67 kg (147 lb 9.6 oz) 07/31/2022 10:40 AM PRINTER APPRENTICE Height 187.5 cm (6' 1.82 ) 07/31/2022 10:[address] Body Mass Index 19.04 07/31/2022 10:40 AM PRINTER APPRENTICE Plan of Treatment Health Maintenance Due Date [...] 03/05/2016, 10/31/2002 Medical Devices Explanted Type Area Body Technician Device Identifier Shelf Expiration Date Model / Serial / Lot [employer] [id number] Reagan 18cm Strut Pectus Bar Support Stainless Steel - [id number] Implanted:Qty: 1 on 08/06/2021 by Francisco Berg MD at [facility] Explanted:Qty: 1 on 07/04/2022 by Deep Nova MD at [facility] N/A: Chest [employer] [id number] / / Insurance [employer] ACCESS CHOICE [place] IDPA BLUE ACCESS [address]OS [address] [place] [address] BLUE ACCESS OOS IDPA Advance Directives For more information, please contact: [phone] Documents on File Type Date Recorded 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
== END 2024-10-11 04:24 | disposition left against medical advice (07) ==
DX: R22.41 Localized swelling, mass and lump, right lower limb (principal)
CPT/HCPCS: 99199

== ENCOUNTER 2024-10-18 08:27 | Emergency (ER) | payer BC, SELFPAY ==
[2024-10-18] VITALS (12 sets, daily range): BP systolic 109–133; BP diastolic 54–80; PULSE 65–95; RESP 16–20; TEMP 37.4; O2SAT 97–99
--- OUTSIDE RECORDS SUMMARY | 2024-10-18 08:39 | XMS_ITS | Continuity of Care Document ---
Author Organization [facility] Address [address] [facility] [place] [address] Phone Care Team Providers Care Cut Roll Machine Offbearer Name Role Phone Saul Rivera MD Unavailable [...] Diagnoses Date Provider Providers Copied on Encounter [facility], [address] [place] [address] A, [place], [place], [address], [place] tel:[phone] [facility] No Information 3 Miguel Hughes. [address], [place], [place], [address] , [place]. tel:[phone] PREV VISIT, EST, AGE 18-39 [facility], [address], [place], [place], [address], [place] tel:[phone] [facility] physical (chief complaint) Encounter for general adult medical exam w abnormal findingsAcneAttenti on deficitGeneralized Anxiety DisorderHypokalemia Proteinuria 3 Miguel Hughes. [address], [place], [place], [address] , [place]. tel:[phone] OFFICE/OUTPA TIENT VISIT, [facility], [address], [place], [place], [address], [place] tel:[phone] [facility] ADD (chief complaint) acne1 (chief complaint) fever (chief complaint) AcneAttention deficitViral infection 3 Miguel Hughes. [address], [place], [place], [address] , [place]. tel:[phone] OFFICE/OUTPA TIENT VISIT, [facility], [address], [place], [place], [address], [place] tel:[phone] [facility] anxiety1 (chief complaint) Acne1 (chief complaint) ADD (chief complaint) Generalized Anxiety DisorderAcneAttenti on deficit 3 Miguel Hughes. [address], [place], [place], [address] , [place]. tel:[phone] OFFICE/OUTPA TIENT VISIT, [facility], [address], [place], [place], [address], [place] tel:[phone] [facility] anxiety1 (chief complaint) ADD (chief complaint) acne (chief complaint) pectus1 (chief complaint) Generalized Anxiety DisorderAttention deficitAcnePectus carinatum 3 Rivera Saul. [address], [place], [place], [address] , [place]. tel:[phone] OFFICE/OUTPA TIENT VISIT, EST [facility], [address], [place], [place], [address], [place] tel:[phone] [facility] ADD (chief complaint) anxiety1 (chief complaint) pectus1 (chief complaint) Attention deficitPectus carinatum 2 Rivera Saul. [address], [place], [place], [address] , [place]. tel:[phone] OFFICE/OUTPA TIENT VISIT, EST [facility], [address], [place], [place], [address], [place] tel:[phone] [facility] ADD (chief complaint) Attention deficit 2 Rivera Saul. [address], [place], [place], [address] , [place]. [phone] PREV VISIT, EST, AGE 18-39 [facility], [address], [place], [place], [address], [place] tel:[phone] [facility] physical (chief complaint) Encounter for general adult medical exam w abnormal findingsAcneGeneral ized Anxiety DisorderAttention deficitPectus carinatum 2 Rivera Saul. [address], [place], [place], [address] , [place]. tel:[phone] OFFICE/OUTPA TIENT VISIT, EST [facility], [address], [place], [place], [address], [place] tel:[phone] [facility] anxiety1 (chief complaint) ADD (chief complaint) pectus1 (chief complaint) Pectus carinatumEmphysemaG eneralized Anxiety DisorderAttention deficit 2 Rivera Saul. [address], [place], [place], [address] , [place]. tel:[phone] OFFICE/OUTPA TIENT VISIT, [facility], [address], [place], [place], [address], [place] tel:[phone] [facility] Acne (chief complaint) pectus1 (chief complaint) Pectus carinatumEmphysemaA cne 1 Miguel Hughes. [address], [place], [place], [address] , [place]. [phone] OFFICE/OUTPA TIENT VISIT, [facility], [address], [place], [place], [address], [place] tel:[phone] [facility] pectus (chief complaint) proteinuri a1 (chief complaint) truncal acne (chief complaint) AcnePectus carinatumProteinuri aDyspnea 1 Miguel Hughes. [address] [facility] [address], [place], [place], [address] , [place]. tel:[phone] OFFICE/OUTPA TIENT VISIT, [facility], [address], [place], [place], [address], [place] tel:[phone] [facility] pectus (chief complaint) proteinuri a1 (chief complaint) Pectus carinatumProteinuri a 0 1 Miguel Hughes. [address], [place], [place], [address] , [place]. [phone] OFFICE/OUTPA TIENT VISIT, [facility], [address], [place], [place], [address], [place] tel:[phone] [facility] low D (chief complaint) low kcl (chief complaint) proteinuri a1 (chief complaint) pectus1 (chief complaint) Pectus carinatumProteinuri aHypokalemiaVitamin D deficiency, unspecified Mar-0 - 1 Miguel Hughes. [address], [place], [place], [address] , [place]. tel:[phone] PREV VISIT, NEW, AGE 18-39 [facility], [address], [place], [place], [address], [place] tel:[phone] [facility] physical (chief complaint) Encounter for general adult medical exam w abnormal findingsPectus carinatumDyspneaGen eralized Anxiety DisorderAttention deficitPolyuria 1 Miguel Hughes. [address], [place], [place], [address] , [place]. tel:[phone] Family History Family Member Type Diagnosis Age [...] Referral Referred To: Roxy PAYTON, Tiffany Chang [address] [facility]
[address] [place], [place], [id number] Ordered: Referrals: Tiffany Ramsey MD. Evaluate and [...] Singh [address] [place], [place], [id number] Ordered: Referrals: Allopathic & Osteopathic Physicians : [...] recurrent facial acne. Pt used to see farm agent but he has not seen farm agent for more than one year. Pt wants [...] is kind of confused about seeing a medicare specialist vs PFT. Pt states that he saw medicare specialist but nothing was done. He states [...] told by CT surgeon to see a farm agent to get the acne treated before the [...] Pt has appointment with pectus clinic at [facility] in 10 days, Pt denies any [...]
--- OUTSIDE RECORDS SUMMARY | 2024-10-18 08:39 | XMS_ITS | Clinical Summary ---
Author Organization [facility] Address [address] [place] [address] Care Team Providers Care Relocation Commissioner Name Role Phone Saul Rivera MD Primary Care Provider [phone] Source Comments [facility],non-owned Affiliates and Associated Physician Practices is amultiple site organization consisting of ambulatory clinics and hospital sitesin [place], [place], [place] and [place]. This disclosure is being madepursuant to the Care Everywhere program and may not contain all information available regarding this patient. Last updated 18.[facility] Allergies No known active allergies Medications * [...] from the original. 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
--- OUTSIDE RECORDS SUMMARY | 2024-10-18 08:39 | XMS_ITS | Clinical Summary ---
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 Gender Identity Not on file Sexual Orientation Not on file Obstetrics History Last Filed Vital Signs Vital Sign Reading Time Taken Comments Blood Pressure 104/60 07/31/2022 10:40 AM MASH FILTER PRESS OPERATOR Pulse 86 07/31/2022 10:40 AM MASH FILTER PRESS OPERATOR Temperature 36.4 C (97.5 F) 07/04/2022 4:25 PM MASH FILTER PRESS OPERATOR Respiratory Rate 18 07/04/2022 4:25 PM MASH FILTER PRESS OPERATOR Oxygen Saturation 100% 07/31/2022 10:40 AM MASH FILTER PRESS OPERATOR Inhaled Oxygen Concentration - - Weight 67 kg (147 lb 9.6 oz) 07/31/2022 10:40 AM MASH FILTER PRESS OPERATOR Height 187.5 cm (6' 1.82 ) 07/31/2022 10:[address] Body Mass Index 19.04 07/31/2022 10:40 AM MASH FILTER PRESS OPERATOR Plan of Treatment Health Maintenance Due [...] 11/05/2005, 05/03/2003, Additional history exists Influenza Vaccine (Season Ended) 2025 08/10/19 Hepatitis B Screening Completed 05/17/2002 , 01/01/2002, 2001, Additional history exists Varicella Vaccines Completed 03/05/2016, 10/31/2002 Medical Devices Explanted Type Area C Application Developer Device Identifier Shelf Expiration Date Model / Serial / Lot [employer] [id number] Reagan 18cm Strut Pectus Bar Support Stainless Steel - [id number] Implanted:Qty: 1 on 08/06/2021 by Francisco Berg MD at [facility] Explanted:Qty: 1 on 07/04/2022 by Deep Nova MD at [facility] N/A: Chest [employer] [id number] / / Insurance IDKY [employer] ACC[place] CHOICE [place] ID[place] BLUE ACCESS OOS [address] [place] [address] BLUE ACCESS OOS IDPA Advance Directives For more information, please contact: [phone] Documents on File Type Date Recorded 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
--- OUTSIDE RECORDS SUMMARY | 2024-10-18 08:39 | XMS_ITS | Referral Summary ---
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 SCIENTIST Gender Identity Not on file Sexual Orientation Not on file Last Filed Vital Signs Vital Sign Reading Time Taken Comments Blood Pressure 104/60 07/31/2022 10:40 AM BIOMEDICAL ANALYTICAL SCIENTIST Pulse 86 07/31/2022 10:40 AM BIOMEDICAL ANALYTICAL SCIENTIST Temperature 36.4 C (97.5 F) 07/04/2022 4:25 PM BIOMEDICAL ANALYTICAL SCIENTIST Respiratory Rate 18 07/04/2022 4:25 PM BIOMEDICAL ANALYTICAL SCIENTIST Oxygen Saturation 100% 07/31/2022 10:40 AM BIOMEDICAL ANALYTICAL SCIENTIST Inhaled Oxygen Concentration - - Weight 67 kg (147 lb 9.6 oz) 07/31/2022 10:40 AM BIOMEDICAL ANALYTICAL SCIENTIST Height 187.5 cm (6' 1.82 ) 07/31/2022 10:[address] Body Mass Index 19.04 07/31/2022 10:40 AM BIOMEDICAL ANALYTICAL SCIENTIST Plan of Treatment Not on file Medical Devices Explanted Type Area Bake Room Worker Device Identifier Shelf Expiration Date Model / Serial / Lot [employer] [id number] Reagan 18cm Strut Pectus Bar Support Stainless Steel - [id number] Implanted:Qty: 1 on 08/06/2021 by Francisco Berg MD at [facility] Explanted:Qty: 1 on 07/04/2022 by Deep Nova MD at [facility] N/A: Chest [employer] [id number] / / Insurance IDPA [employer] Managed Hosting OOS BLUE [employer] CHOICE AR [facility] INetU Managed Hosting [facility] hdl therapeutics ACCESS OOS IDPA Advance Directives For more information, please contact: [phone] Documents on File Type Date Recorded 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
--- OUTSIDE RECORDS SUMMARY | 2024-10-18 09:45 | XMS_ITS | Referral Summary ---
Author Organization [facility] Address [address] [place] [address] Care Team Providers Care Animation Director Name Role Phone Saul Rivera MD Primary [...] on file Legal Sex Male 8:06 AM INFORMATION SYSTEMS SECURITY DEVELOPER Gender Identity Not on file Sexual Orientation Not on file Last Filed Vital Signs Vital Sign Reading Time Taken Comments Blood Pressure 104/60 07/31/2022 10:40 AM INFORMATION SYSTEMS SECURITY DEVELOPER Pulse 86 07/31/2022 10:40 AM INFORMATION SYSTEMS SECURITY DEVELOPER Temperature 36.4 C (97.5 F) 07/04/2022 4:25 PM INFORMATION SYSTEMS SECURITY DEVELOPER Respiratory Rate 18 07/04/2022 4:25 PM INFORMATION SYSTEMS SECURITY DEVELOPER Oxygen Saturation 100% 07/31/2022 10:40 AM INFORMATION SYSTEMS SECURITY DEVELOPER Inhaled Oxygen Concentration - - Weight 67 kg (147 lb 9.6 oz) 07/31/2022 10:40 AM INFORMATION SYSTEMS SECURITY DEVELOPER Height 187.5 cm (6' 1.82 ) 07/31/2022 10:[address] Body Mass Index 19.04 07/31/2022 10:40 AM INFORMATION SYSTEMS SECURITY DEVELOPER Plan of Treatment Not on file Medical Devices Explanted Type Area Slurry Control Tender Device Identifier Shelf Expiration Date Model / Serial / Lot [employer] [id number] Reagan 18cm Strut Pectus Bar Support Stainless Steel - [id number] Implanted:Qty: 1 on 08/06/2021 by Francisco Berg MD at [facility] Explanted:Qty: 1 on 07/04/2022 by Deep Nova MD at [facility] N/A: Chest [employer] [id number] / / Insurance IDPA [employer] OOS BLUE [employer] CHOICE [facility] Address: [address] [place] [address] [facility] Jag[employer] [facility] [employer] ACCESS OOS IDPA Advance Directives For more information, please contact: [phone] Documents on File Type Date Recorded Patient Hand Plug Shaper Expl anation Advance Directives and Livin g [...] 2:50 PM 08/10/2021 5:02 PM Care Teams Animation Director Relationship Specialty Start Date End Date Saul Rivera MD [address] [place] [address] PCP - General Family Medicine 08/14/20
--- OUTSIDE RECORDS SUMMARY | 2024-10-18 09:45 | XMS_ITS | Continuity of Care Document ---
Author Organization [facility] Address [address] [place] [address] Phone Care Team Providers Care Radio Maintainer Name Role Phone Saul Rivera MD Unavailable [...] Diagnoses Date Provider Providers Copied on Encounter [facility], [address] [place] [address] A, [place], [place], [address], [place] tel:[phone] [facility] No Information 3 Miguel Hughes. [address], [place], [place], [address] , [place]. tel:[phone] PREV VISIT, EST, AGE 18-39 [facility], [address], [place], [place], [address], [place] tel:[phone] [facility] physical (chief complaint) Encounter for general adult medical exam w abnormal findingsAcneAttenti on deficitGeneralized Anxiety DisorderHypokalemia Proteinuria 3 Miguel Hughes. [address], [place], [place], [address] , [place]. tel:[phone] OFFICE/OUTPA TIENT VISIT, [facility], [address], [place], [place], [address], [place] tel:[phone] [facility] ADD (chief complaint) acne1 (chief complaint) fever (chief complaint) AcneAttention deficitViral infection 3 Miguel Hughes. [address], [place], [place], [address] , [place]. tel:[phone] OFFICE/OUTPA TIENT VISIT, [facility], [address], [place], [place], [address], [place] tel:[phone] [facility] anxiety1 (chief complaint) Acne1 (chief complaint) ADD (chief complaint) Generalized Anxiety DisorderAcneAttenti on deficit 3 Miguel Hughes. [address], [place], [place], [address] , [place]. tel:[phone] OFFICE/OUTPA TIENT VISIT, [facility], [address], [place], [place], [address], [place] tel:[phone] [facility] anxiety1 (chief complaint) ADD (chief complaint) acne (chief complaint) pectus1 (chief complaint) Generalized Anxiety DisorderAttention deficitAcnePectus carinatum 3 Rivera Saul. [address], [place], [place], [address] , [place]. tel:[phone] OFFICE/OUTPA TIENT VISIT, EST [facility], [address], [place], [place], [address], [place] tel:[phone] [facility] ADD (chief complaint) anxiety1 (chief complaint) pectus1 (chief complaint) Attention deficitPectus carinatum 2 Rivera Saul. [address], [place], [place], [address] , [place]. tel:[phone] OFFICE/OUTPA TIENT VISIT, EST [facility], [address], [place], [place], [address], [place] tel:[phone] [facility] ADD (chief complaint) Attention deficit 2 Rivera Saul. [address], [place], [place], [address] , [place]. [phone] PREV VISIT, EST, AGE 18-39 [facility], [address], [place], [place], [address], [place] tel:[phone] [facility] physical (chief complaint) Encounter for general adult medical exam w abnormal findingsAcneGeneral ized Anxiety DisorderAttention deficitPectus carinatum 2 Rivera Saul. [address], [place], [place], [address] , [place]. tel:[phone] OFFICE/OUTPA TIENT VISIT, EST [facility], [address], [place], [place], [address], [place] tel:[phone] [facility] anxiety1 (chief complaint) ADD (chief complaint) pectus1 (chief complaint) Pectus carinatumEmphysemaG eneralized Anxiety DisorderAttention deficit 2 Rivera Saul. [address], [place], [place], [address] , [place]. tel:[phone] OFFICE/OUTPA TIENT VISIT, [facility], [address], [place], [place], [address], [place] tel:[phone] [facility] Acne (chief complaint) pectus1 (chief complaint) Pectus carinatumEmphysemaA cne 1 Miguel Hughes. [address], [place], [place], [address] , [place]. [phone] OFFICE/OUTPA TIENT VISIT, [facility], [address], [place], [place], [address], [place] tel:[phone] [facility] pectus (chief complaint) proteinuri a1 (chief complaint) truncal acne (chief complaint) AcnePectus carinatumProteinuri aDyspnea 1 Miguel Hughes. [address] [facility] [address], [place], [place], [address] , [place]. tel:[phone] OFFICE/OUTPA TIENT VISIT, [facility], [address], [place], [place], [address], [place] tel:[phone] [facility] pectus (chief complaint) proteinuri a1 (chief complaint) Pectus carinatumProteinuri a 0 1 Miguel Hughes. [address], [place], [place], [address] , [place]. [phone] OFFICE/OUTPA TIENT VISIT, [facility], [address], [place], [place], [address], [place] tel:[phone] [facility] low D (chief complaint) low kcl (chief complaint) proteinuri a1 (chief complaint) pectus1 (chief complaint) Pectus carinatumProteinuri aHypokalemiaVitamin D deficiency, unspecified Mar-0 - 1 Miguel Hughes. [address], [place], [place], [address] , [place]. tel:[phone] PREV VISIT, NEW, AGE 18-39 [facility], [address], [place], [place], [address], [place] tel:[phone] [facility] physical (chief complaint) Encounter for general adult medical exam w abnormal findingsPectus carinatumDyspneaGen eralized Anxiety DisorderAttention deficitPolyuria 1 Miguel Hughes. [address], [place], [place], [address] , [place]. tel:[phone] Family History Family Member Type Diagnosis Age At Onset Mother Problem lupus Father Problem of OD Brother Problem Alive and well Payers Payer name Insurance type Covered alliance party ID Authoriza tion(s) No Information Social History Type Description Quantity Date Captured Comments Alcohol Use Details Unknown Caffeine Use Details Unknown Tobacco Use Status No Information Smoking Status No Information Sex Male Chief Complaint And Reason For Visit No Information Plan Of Treatment Date Type Action Status Referral Ordered: Dermatology (related to Acne) ordered Referral Referred To: Roxy PAYTON, Tiffany Chang [address] [facility]
[address] [place], [place], [id number] Ordered: Referrals: Tiffany Ramsey MD. Evaluate and [...] Singh [address] [place], [place], [id number] Ordered: Referrals: Allopathic & Osteopathic Physicians : [...] recurrent facial acne. Pt used to see computer builder but he has not seen computer builder for more than one year. Pt wants [...] is kind of confused about seeing a lead generation specialist vs PFT. Pt states that he saw lead generation specialist but nothing was done. He states [...] told by CT surgeon to see a computer builder to get the acne treated before the carinatum repair. pectus Pt has severe pe ctus carinatum. Pt has appointment with pectus clinic at [facility] in 10 days, Pt denies any [...]
--- OUTSIDE RECORDS SUMMARY | 2024-10-18 09:45 | XMS_ITS | Clinical Summary ---
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 Gender Identity Not on file Sexual Orientation Not on file Obstetrics History Last Filed Vital Signs Vital Sign Reading Time Taken Comments Blood Pressure 104/60 07/31/2022 10:40 AM NAVAL AIRCREWMAN Pulse 86 07/31/2022 10:40 AM NAVAL AIRCREWMAN Temperature 36.4 C (97.5 F) 07/04/2022 4:25 PM NAVAL AIRCREWMAN Respiratory Rate 18 07/04/2022 4:25 PM NAVAL AIRCREWMAN Oxygen Saturation 100% 07/31/2022 10:40 AM NAVAL AIRCREWMAN Inhaled Oxygen Concentration - - Weight 67 kg (147 lb 9.6 oz) 07/31/2022 10:40 AM NAVAL AIRCREWMAN Height 187.5 cm (6' 1.82 ) 07/31/2022 10:[address] Body Mass Index 19.04 07/31/2022 10:40 AM NAVAL AIRCREWMAN Plan of Treatment Health Maintenance Due Date [...] 03/05/2016, 10/31/2002 Medical Devices Explanted Type Area Local Driver Device Identifier Shelf Expiration Date Model / Serial / Lot [employer] [id number] Reagan 18cm Strut Pectus Bar Support Stainless Steel - [id number] Implanted:Qty: 1 on 08/06/2021 by Francisco Berg MD at [facility] Explanted:Qty: 1 on 07/04/2022 by Deep Nova MD at [facility] N/A: Chest [employer] [id number] / / Insurance IDNH [employer] ACC[place] CHOICE [place] ID[place] BLUE ACCESS [address]OS [address] [place] [address] BLUE ACCESS OOS IDPA Advance Directives For more information, please contact: [phone] Documents on File Type Date Recorded 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
--- OUTSIDE RECORDS SUMMARY | 2024-10-18 09:46 | XMS_ITS | Clinical Summary ---
Author Organization [facility] Address [address] [place] [address] Care Team Providers Care Industrial Specialist Name Role Phone Saul Rivera MD Primary Care Provider [phone] Source Comments [facility],non-owned Affiliates and Associated Physician Practices is amultiple site organization consisting of ambulatory clinics and hospital sitesin [place], [place] and [place]. This disclosure is being madepursuant to the Care Everywhere program and may not contain all information available regarding this patient. Last updated 18.[facility] Allergies No known active allergies Medications * [...] from the original. 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
--- NOTE | 2024-10-18 09:50 | ED_ITS ---
HPI - General Adult General Chief complaint: Skin/Abscess/Foreign Body Stated complaint: hives, spider bite? Time Seen by Provider: 10/18/24 09:10 History of Present Illness HPI narrative: Rajat Mullins is a 23-year-old male who presents today with complaints of having URI symptoms that started yesterday. He states that he started to have a cough yesterday today he woke up with body aches he took 800 mg of ibuprofen more before he arrived here. He states he also felt like he was having some a hives when he woke up this morning but they have spontaneously improved still has a few on his upper arms. He also states that he had some type of mild bite to his right upper thigh about a week ago and was seen at urgent care and given antibiotics overheating continue to take the antibiotics but has improved and is healed and no longer bothering him he was worried the symptoms were related to his bug bite. Related Data Home Medications ?Medication ?Instructions ?Recorded ?Confirmed ?Last Taken ?Type tadalafil 5 mg tablet (Cialis) 5 mg PO DAILY 08/02/24 08/02/24 Unknown History Allergies Allergy/AdvReac Type Severity Reaction Status Date / Time No Known Allergies Allergy Verified 10/18/24 08:34 Review of Systems 2 Review of Systems: All systems reviewed & are unremarkable except as noted in HPI and below PMFSH Past Medical History Medical History Anxiety ADHD Social History Social History Smoking status: Never smoker Tobacco type: e-cigarettes/vaping Alcohol intake: current Drinks per week: 4 Living arrangements: with family Spiritual care concerns: No Exam 2 Narrative: GENERAL: Well-appearing, well-nourished, and in no acute distress. HEAD: Normocephalic, atraumatic. EYES: PERRLA and EOMI. ENT: Nares clear, no rhinorrhea or epistaxis. Mucous membranes moist. Oropharynx without tonsillar hypertrophy exudate or other lesions. NECK: Supple. No adenopathy or masses. No carotid bruits or JVD CHEST: Clear to auscultation. No respiratory distress. No wheezes rales or rhonchi HEART: Regular rate and rhythm. No murmur heard. Normal peripheral pulses. ABDOMEN: Soft, nontender, nondistended, normal active bowel sounds. EXTREMITIES: Normal range of motion. No edema. SKIN: Warm, dry mild headache area to the upper arms bilaterally this seems to be going away NEURO: No focal deficits. Alert and oriented x3. PSYCH: Normal mood and affect. Course Vital Signs Vital signs: Vital Signs Temperature 37.4 C 10/18/24 08:34 Temperature 37.4 C 10/18/24 08:34 Pulse Rate 78 10/18/24 12:00 Respiratory Rate 16 10/18/24 12:00 Blood Pressure 111/54 L 10/18/24 12:00 Pulse Oximetry 97 10/18/24 12:00 Medical Decision Making MDM Narrative Medical decision making narrative: 23-year-old male who presents with URI symptoms that started yesterday concerned that it could be related to a bug bite that he had a week ago. On exam lung sounds are clear respirations even unlabored of mild aortic area to his bilateral upper arms that are disappearing spontaneously. Oropharynx clear and patent no edema noted No difficulty breathing no shortness of no chest pain Bug bite to his right upper thigh is he will do no obvious cellulitis or erythema Concern for URI or allergic reaction plan to check labs while treating him with benadryl and tylenol as he took motrin RESOURCING CONSULTANT CBC-no leukocytosis, hemodynamically stable Cmp-unremarkable Viral swab-positive for influenza B Strep-negative While patient here he started to get more hives up around his neck and is a 6 no airway swelling but is seen that his allergic reaction was started to get worse. The patient was giving epi shot he was already given Benadryl p.o. and steroids and Pepcid were initiated along with IV fluids. Patient tolerated this very well improved very quickly was monitored for another 3 hours in the emergency department and no signs of allergic reaction returned. Patient is also positive for influenza B. After evaluation a patient now feels comfortable going home will continue him on Zyrtec daily along with Benadryl at bedtime as needed Pepcid daily for 2 weeks and 5 day course of steroids. Patient given strict return precautions if he develops any sign had allergic reaction again or if he has any other concerns. Medical Records Medical records reviewed: Yes I reviewed the external patient's medical records. Vital Signs Vital Signs: Vital Signs Temperature 37.4 C 10/18/24 08:34 Temperature 37.4 C 10/18/24 08:34 Pulse Rate 78 10/18/24 12:00 Respiratory Rate 16 10/18/24 12:00 Blood Pressure 111/54 L 10/18/24 12:00 Pulse Oximetry 97 10/18/24 12:00 Vitals reviewed Lab Data 10/18/24 09:50 10/18/24 09:50 Labs: Lab Results 10/18/24 Range/Units 09:50 WBC 5.9 (4.5-10.0) K/mm3 RBC 4.58 L (4.6-6.20) M/mm3 Hgb 13.8 L (14.0-18.0) g/dL Hct 40.7 L (42.0-52.0) % MCV 88.9 (80-100) fl MCH 30.1 (26-34) pg MCHC 33.9 (32-36) g/dl RDW 13.0 (11.5-14.5) % Plt Count 236 (150-375) k/mm3 MPV 8.0 (7.4-10.4) fl Immature Gran % (Auto) 0.2 (0-0.5) % Neut % (Auto) 71.8 (45.5-73.1) % Lymph % (Auto) 12.1 L (18.3-44.2) % [place] % (Auto) 14.6 H (2.6-8.5) % Eos % (Auto) 0.8 (0-4.4) % Baso % (Auto) 0.5 (0.2-1.2) % Lymph # (Auto) 0.71 L (0.9-3.2) K/mm3 [place] # (Auto) 0.9 H (0.1-0.6) K/mm3 Eos # (Auto) 0.1 (0-0.3) K/mm3 Baso # (Auto) 0.0 (0.0-0.1) K/mm3 Abs Immat Gran (auto) 0.01 (0.00-0.031) K/mm3 Absolute Neuts (auto) 4.2 (1.3-6.7) K/mm3 Absolute Nucleated RBC 0.000 (0.0-0.012) K/mm3 Nucleated RBC % 0.0 (0.0-0.2) % Sodium 137 (137-145) mmol/L Potassium 3.7 (3.4-5.0) mmol/L Chloride 100 (98-107) mmol/L Carbon Dioxide 29 (22-30) mmol/L Anion Gap 8 (4-12) mmol/L BUN 14 (9-20) mg/dL Creatinine 1.10 (0.7-1.3) mg/dL Estim Creat Clear Calc 106 ml/min Estimated GFR > 60 (59 - ) Glucose 94 (65-110) mg/dL Calcium 9.1 (8.4-10.2) mg/dL Total Bilirubin 0.4 (0.2-1.3) mg/dL AST 31 (17-59) U/L ALT 20 (6-50) U/L Alkaline Phosphatase 113 (38-126) U/L Total Protein 7.0 (6.3-8.2) g/dL Albumin 4.5 (3.5-5.1) g/dL Influenza A (RT-PCR) Negative (Negative) Influenza B (RT-PCR) Positive A (Negative) RSV (RT-PCR) Negative (Negative) SARS-CoV-2 RNA (RT-PCR) Negative (Negative) Group A Strep (PCR) Not detected (Negative) Discharge Plan Discharge Clinical Impression: Influenza B Allergic reaction Qualifiers: Encounter type: initial encounter Qualified Code(s): T78.40XA - Allergy, unspecified, initial encounter Patient Disposition: Home Condition: Stable Instructions: Antibiotic Form Additional Instructions: Continue to take Zyrtec daily for the next 2 weeks Continues to take Pepcid daily for the next 2 weeks Continue to take prednisone daily for 5 more days 40 mg You may also take Benadryl at bedtime I only expect your symptoms to improve, you should not develop any worsening symptoms and to develop any allergic symptoms to need to return to the ER. also, you have the flu, please rest / hydrate follow up with your PCP in 1 week Patient Language: Macedonian Prescriptions: New cetirizine [Zyrtec] 10 mg tablet 10 mg PO DAILY PRN (Reason: allergy symptoms) Qty: 30 0RF famotidine [Pepcid] 20 mg tablet 20 mg PO DAILY Qty: 20 0RF prednisone 20 mg tablet 40 mg PO DAILY Qty: 10 0RF Rx Instructions: take two tabs for 5 days starting 10/19 No Action acetaminophen 500 mg tablet 1,000 mg PO TID PRN (Reason: chaparro) 7 Days Qty: 42 0RF ibuprofen 800 mg tablet 800 mg PO TID PRN (Reason: pain) 7 Days Qty: 21 0RF tadalafil [Cialis] 5 mg tablet 5 mg PO DAILY hydrocodone-acetaminophen 5-325 mg tablet 1 tablet PO Q6H PRN (Reason: pain) Qty: 12 0RF cephalexin 500 mg capsule 500 mg PO Q8H Qty: 21 0RF Follow-up/Referrals: UNKNOWN,DOCTOR [Primary Care Provider] - Stand Alone Forms: Work/School Release IP Time of Disposition: 14:03
[2024-10-18] MEDS: ACETAMINOPHEN 500 MG TABLET 1000 MG PO (09:51)
[2024-10-18] MEDS: diphenhydrAMINE HCl CAP 25 MG CAPSULE 50 MG PO (09:52)
[2024-10-18 10:02] LABS: Basophils Percent Auto 0.5 % (0.2-1.2); Eosinophils Absolute Auto 0.1 K/mm3 (0-0.3); Eosinophils Percent Auto 0.8 % (0-4.4); Hematocrit 40.7 % (42.0-52.0); Hemoglobin 13.8 g/dL (14.0-18.0); Immature Granulocyte Absolute 0.01 K/mm3 (0.00-0.031); Immature Granulocyte Percent A 0.2 % (0-0.5); Lymphocytes Absolute Auto 0.71 K/mm3 (0.9-3.2); Lymphocytes Percent Auto 12.1 % (18.3-44.2); Mean Corpuscular HGB Conc 33.9 g/dl (32-36); Mean Corpuscular Hemoglobin 30.1 pg (26-34); Mean Corpuscular Volume 88.9 fl (80-100); Monocytes Absolute Auto 0.9 K/mm3 (0.1-0.6); Monocytes Percent Auto 14.6 % (2.6-8.5); Neutrophils Absolute Auto 4.2 K/mm3 (1.3-6.7); Neutrophils Percent Auto 71.8 % (45.5-73.1); Platelet Count Result 236 k/mm3 (150-375); Red Blood Count 4.58 M/mm3 (4.6-6.20); White Blood Count 5.9 K/mm3 (4.5-10.0)
[2024-10-18 10:14] LABS: Alanine Aminotransferase 20 U/L (6-50); Albumin Level 4.5 g/dL (3.5-5.1); Alkaline Phosphatase 113 U/L (38-126); Anion Gap 8 mmol/L (4-12); Aspartate Amino Transferase 31 U/L (17-59); Bilirubin,Total 0.4 mg/dL (0.2-1.3); Blood Urea Nitrogen 14 mg/dL (9-20); Calcium 9.1 mg/dL (8.4-10.2); Carbon Dioxide 29 mmol/L (22-30); Chloride 100 mmol/L (98-107); Estimated CRCL calculation 106 ml/min; Estimated Glomerular Filt Rate > 60; Glucose 94 mg/dL (65-110); Potassium 3.7 mmol/L (3.4-5.0); Sodium 137 mmol/L (137-145)
[2024-10-18 10:29] LABS: Strep Group A RT-PCR NOT DETECTED (Negative)
[2024-10-18 10:38] LABS: Influenza A QL RT-PCR Negative (Negative); Influenza B QL RT-PCR Positive (Negative); RSV RNA, RT-PCR Negative (Negative); SARS-CoV-2 RNA PCR Negative (Negative)
--- NOTE | 2024-10-18 10:50 | PC.NURSE ---
RN to room. Pt hives spreading to neck/face. EDP made aware.
[2024-10-18] MEDS: SODIUM CHLORIDE 0.9% IV 1,000 ML 999 ML IV CONT (11:05)
[2024-10-18] MEDS: dexAMETHasone SOD PHOS INJ 10 MG/ML 1 ML VIAL IV PUSH (11:05)
[2024-10-18] MEDS: FAMOTIDINE 20 MG/2 ML VIAL IV PUSH (11:06)
[2024-10-18] MEDS: EPINEPHrine HCL INJ 1 MG/ML AMPUL 0.3 MG IM (11:07)
== END 2024-10-18 14:14 | disposition home or self-care (01) ==
PROVIDERS: Emergency Provider Nurse Practitioner Family
DX: J10.1 Influenza due to other identified influenza virus with other respiratory manifestations (principal); T78.40XA Allergy, unspecified, initial encounter; F41.9 Anxiety disorder, unspecified; F90.9 Attention-deficit hyperactivity disorder, unspecified type
CPT/HCPCS: 36415; 80053; 85025; 87081; 87637; 87651; 96361; 96372; 96374; 96375; 99284; A9270; J0171; J1100; J7030

== ENCOUNTER 2024-10-19 15:04 | Observation (INO) | payer BC, SELFPAY ==
[2024-10-19] VITALS (11 sets, daily range): BP systolic 110–130; BP diastolic 50–94; PULSE 76–109; RESP 15–18; TEMP 36.6–36.8; O2SAT 98–100; BMI 25.0
--- NOTE | ~2024-10-19 | XR_ITS ---
CHEST RADIOGRAPH CLINICAL HISTORY: Anaphylaxis . COMPARISON: None available TECHNIQUE: Single portable view of the chest. FINDINGS Transverse sternal wires are identified, the wires are midline and intact. The remainder of the cardiomediastinal silhouette is otherwise unremarkable. The lungs are clear. IMPRESSION: No focal infiltrate or effusion. Reviewed, dictated and finalized at location A.
--- OUTSIDE RECORDS SUMMARY | 2024-10-19 15:08 | XMS_ITS | Referral Summary ---
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 Gender Identity Not on file Sexual Orientation Not on file Last Filed Vital Signs Vital Sign Reading Time Taken Comments Blood Pressure 104/60 07/31/2022 10:40 AM FOOD MOBILE DRIVER Pulse 86 07/31/2022 10:40 AM FOOD MOBILE DRIVER Temperature 36.4 C (97.5 F) 07/04/2022 4:25 PM FOOD MOBILE DRIVER Respiratory Rate 18 07/04/2022 4:25 PM FOOD MOBILE DRIVER Oxygen Saturation 100% 07/31/2022 10:40 AM FOOD MOBILE DRIVER Inhaled Oxygen Concentration - - Weight 67 kg (147 lb 9.6 oz) 07/31/2022 10:40 AM FOOD MOBILE DRIVER Height 187.5 cm (6' 1.82 ) 07/31/2022 10:[address] Body Mass Index 19.04 07/31/2022 10:40 AM FOOD MOBILE DRIVER Plan of Treatment Not on file Medical Devices Explanted Type Area Basket Person Device Identifier Shelf Expiration Date Model / Serial / Lot [employer] [id number] Reagan 18cm Strut Pectus Bar Support Stainless Steel - [id number] Implanted:Qty: 1 on 08/06/2021 by Francisco Berg MD at [facility] Explanted:Qty: 1 on 07/04/2022 by Deep Nova MD at [facility] N/A: Chest [employer] [id number] / / Insurance IDPA [employer] OOS [employer] CHOICE [facility] Address: [address] [place] [address] [facility] [employer] [facility] [employer] ACCESS OOS IDPA Advance Directives For more information, please contact: [phone] Documents on File Type Date Recorded Patient Narrow Fabric Calenderer Expl anation Advance Directives and Livin g [...] 2:50 PM 08/10/2021 5:02 PM Care Teams Scrap Sorter Relationship Specialty Start Date End Date Saul Rivera MD [address] [place] [address] PCP - General Family Medicine 08/14/20
--- OUTSIDE RECORDS SUMMARY | 2024-10-19 15:08 | XMS_ITS | Clinical Summary ---
Author Organization [facility] [employer] Address [address] [place] [address] Care Team Providers Care Horseradish Maker Name Role Phone Saul Rivera MD Primary Care Provider [phone] Source Comments [facility] [employer],non-owned Affiliates and Associated Physician Practices is amultiple site organization consisting of ambulatory clinics and hospital sitesin [place], [place], [place] and [place]. This disclosure is being madepursuant to the Care Everywhere program and may not contain all information available regarding this patient. Last updated 18.[facility] [employer] [facility] Allergies No known active allergies Medications * [...] from the original. 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
--- OUTSIDE RECORDS SUMMARY | 2024-10-19 15:08 | XMS_ITS | Continuity of Care Document ---
Author Organization [facility] Address [address] [place] [address] Phone Care Team Providers Care Legal Nurse Consultant Name Role Phone Saul Rivera MD Unavailable [...] Diagnoses Date Provider Providers Copied on Encounter [facility], [address] [place] [address] A, [place], [place], [id number], [place] tel:[phone] [facility] No Information 3 Miguel Hughes. [address], [place], [place], [address] , [place]. tel:[phone] PREV VISIT, EST, AGE 18-39 [facility], [address], [place], [place], [address], [place] tel:[phone] [facility] physical (chief complaint) Encounter for general adult medical exam w abnormal findingsAcneAttenti on deficitGeneralized Anxiety DisorderHypokalemia Proteinuria 3 Miguel Hughes. [address], [place], [place], [address] , [place]. tel:[phone] OFFICE/OUTPA TIENT VISIT, [facility] [place], [address], [place], [place], [address], [place] tel:[phone] [facility] ADD (chief complaint) acne1 (chief complaint) fever (chief complaint) AcneAttention deficitViral infection 3 Miguel Hughes. [address], [place], [place], [address] , [place]. tel:[phone] OFFICE/OUTPA TIENT VISIT, [facility] [place], [address], [place], [place], [address], [place] tel:[phone] [facility] anxiety1 (chief complaint) Acne1 (chief complaint) ADD (chief complaint) Generalized Anxiety DisorderAcneAttenti on deficit 3 Miguel Hughes. [address], [place], [place], [address] , [place]. tel:[phone] OFFICE/OUTPA TIENT VISIT, [facility] [place], [address], [place], [place], [address], [place] tel:[phone] [facility] anxiety1 (chief complaint) ADD (chief complaint) acne (chief complaint) pectus1 (chief complaint) Generalized Anxiety DisorderAttention deficitAcnePectus carinatum 3 Rivera Saul. [address], [place], [place], [address] , [place]. tel:[phone] OFFICE/OUTPA TIENT VISIT, EST [facility], [address], [place], [place], [address], [place] tel:[phone] [facility] ADD (chief complaint) anxiety1 (chief complaint) pectus1 (chief complaint) Attention deficitPectus carinatum 2 Rivera Saul. [address], [place], [place], [address] , [place]. tel:[phone] OFFICE/OUTPA TIENT VISIT, EST [facility], [address], [place], [place], [address], [place] tel:[phone] [facility] ADD (chief complaint) Attention deficit 2 Rivera Saul. [address], [place], [place], [address] , [place]. [phone] PREV VISIT, EST, AGE 18-39 [facility], [address], [place], [place], [address], [place] tel:[phone] [facility] physical (chief complaint) Encounter for general adult medical exam w abnormal findingsAcneGeneral ized Anxiety DisorderAttention deficitPectus carinatum 2 Rivera Saul. [address], [place], [place], [address] , [place]. tel:[phone] OFFICE/OUTPA TIENT VISIT, EST [facility], [address], [place], [place], [address], [place] tel:[phone] [facility] anxiety1 (chief complaint) ADD (chief complaint) pectus1 (chief complaint) Pectus carinatumEmphysemaG eneralized Anxiety DisorderAttention deficit 2 Rivera Saul. [address], [place], [place], [address] , [place]. tel:[phone] OFFICE/OUTPA TIENT VISIT, [facility] [place], [address], [place], [place], [address], [place] tel:[phone] [facility] Acne (chief complaint) pectus1 (chief complaint) Pectus carinatumEmphysemaA cne 1 Miguel Hughes. [address], [place], [place], [address] , [place]. [phone] OFFICE/OUTPA TIENT VISIT, [facility] [place], [address], [place], [place], [address], [place] tel:[phone] [facility] pectus (chief complaint) proteinuri a1 (chief complaint) truncal acne (chief complaint) AcnePectus carinatumProteinuri aDyspnea 1 Miguel Hughes. [address], [place], [place], [address] , [place]. tel:[phone] OFFICE/OUTPA TIENT VISIT, [facility] [place], [address], [place], [place], [address], [place] tel:[phone] [facility] pectus (chief complaint) proteinuri a1 (chief complaint) Pectus carinatumProteinuri a 0 1 Miguel Hughes. [address], [place], [place], [address] , [place]. [phone] OFFICE/OUTPA TIENT VISIT, [facility] [place], [address], [place], [place], [address], [place] tel:[phone] [facility] low D (chief complaint) low kcl (chief complaint) proteinuri a1 (chief complaint) pectus1 (chief complaint) Pectus carinatumProteinuri aHypokalemiaVitamin D deficiency, unspecified Mar-0 - 1 Miguel Hughes. [address], [place], [place], [address] , [place]. tel:[phone] PREV VISIT, NEW, AGE 18-39 [facility], [address], [place], [place], [address], [place] tel:[phone] [facility] physical (chief complaint) Encounter for general adult medical exam w abnormal findingsPectus carinatumDyspneaGen eralized Anxiety DisorderAttention deficitPolyuria 1 Miguel Hughes. [address], [place], [place], [address] , [place]. tel:[phone] Family History Family Member Type Diagnosis Age [...] Referral Referred To: Roxy PAYTON, Tiffany Chang [address] [facility] [address] [facility]
[address] [place], [place], [id number] Ordered: Referrals: Tiffany Ramsey MD. Evaluate and [...] Singh [address] [place], [place], [phone] Ordered: Referrals: Allopathic & Osteopathic Physicians : [...] recurrent facial acne. Pt used to see sr. manager marketing but he has not seen sr. manager marketing for more than one year. Pt wants [...] is kind of confused about seeing a medical language specialist vs PFT. Pt states that he saw medical language specialist but nothing was done. He states [...] has some old scarring. Pt doing ok. truncal acne Pt has chronic c ystic acne on upper back and front of chest area with scarring. Pt used to wear chest brace which he sweats under it which causes worsening intermittent flare up of the cystic acne. Pt was told by CT surgeon to see a sr. manager marketing to get the acne treated before the [...] Pt has appointment with pectus clinic at [facility] in 10 days, Pt denies any sob [...]
--- OUTSIDE RECORDS SUMMARY | 2024-10-19 15:08 | XMS_ITS | Clinical Summary ---
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 Gender Identity Not on file Sexual Orientation Not on file Obstetrics History Last Filed Vital Signs Vital Sign Reading Time Taken Comments Blood Pressure 104/60 07/31/2022 10:40 AM PARTS CHASER Pulse 86 07/31/2022 10:40 AM PARTS CHASER Temperature 36.4 C (97.5 F) 07/04/2022 4:25 PM PARTS CHASER Respiratory Rate 18 07/04/2022 4:25 PM PARTS CHASER Oxygen Saturation 100% 07/31/2022 10:40 AM PARTS CHASER Inhaled Oxygen Concentration - - Weight 67 kg (147 lb 9.6 oz) 07/31/2022 10:40 AM PARTS CHASER Height 187.5 cm (6' 1.82 ) 07/31/2022 10:[address] Body Mass Index 19.04 07/31/2022 10:40 AM PARTS CHASER Plan of Treatment Health Maintenance Due Date [...] 03/05/2016, 10/31/2002 Medical Devices Explanted Type Area Stitch Bonding Machine Drawer In Device Identifier Shelf Expiration Date Model / Serial / Lot [employer] [id number] Reagan 18cm Strut Pectus Bar Support Stainless Steel - [id number] Implanted:Qty: 1 on 08/06/2021 by Francisco Berg MD at [facility] Explanted:Qty: 1 on 07/04/2022 by Deep Nova MD at [facility] N/A: Chest [employer] [id number] / / Insurance [employer]KY [employer] [facility] Address: [address] [place] [address] [employer] [place] [address] BLUE ACCESS [address] [place] [address] [place] [address] Advance Directives For more information, please contact: [phone] Documents on File Type Date Recorded Patient Bottling Attendant Expl anation Advance Directives and Livin g [...] 2:50 PM 08/10/2021 5:02 PM Care Teams Lead Ruby On Rails Developer Relationship Specialty Start Date End Date Saul Rivrea MD [address] [place] [address] PCP - General Family Medicine 08/14/20
[2024-10-19] MEDS: EPINEPHrine HCL INJ 1 MG/ML AMPUL (15:16)
[2024-10-19] MEDS: diphenhydrAMINE HCl INJ 50 MG/ML VIAL (15:16)
[2024-10-19] MEDS: FAMOTIDINE 20 MG/2 ML VIAL (15:16)
--- NOTE | 2024-10-19 15:16 | ECG_ITS ---
Test Date: 2024-10-19 15:16:10 Measurements Intervals [place] Rate: 100 P: 69 RI: 119 QRS: 61 QRSD: 87 T: 56 QT: 312 QTc: 403 Interpretive Statements SINUS TACHYCARDIA WITH SHORT RI INTERVAL No previous ECG available for comparison Electronically Signed On 10-20-2024 10:02:35 CDT by Jaleesa Glass M.D.
[2024-10-19] MEDS: methylPREDNISolone SOD SUCC 125 MG VIAL (15:20)
[2024-10-19] MEDS: SODIUM CHLORIDE 0.9% IV 1,000 ML 999 ML (15:20)
--- NOTE | 2024-10-19 15:38 | ED.ALLEREA ---
HPI - Allergic Reaction General Chief complaint: Allergic Reaction Stated complaint: Allergic reaction-facial swelling Time Seen by Provider: 10/19/24 15:05 History of Present Illness HPI narrative: 23-year-old otherwise healthy male presenting to the emergency department for suspected anaphylactic reaction. Patient was seen here yesterday morning after he woke up with some body aches and took ibuprofen. He had upper respiratory infection symptoms and was found to have urticarial rash. at that time he was diagnosed with influenza B after viral panel came back positive but he was also having worsening symptoms including urticarial rash progressing around his neck and body requiring epinephrine injection and steroid/ Benadryl here in the emergency department. He was observed for several hours and discharged home with a epinephrine autoinjector prescription and medications sent to his pharmacy including Benadryl and Pepcid. He did not get to refilling these medications or get an epinephrine injector yet and this morning at 2:00 a.m. was having recurrence of his symptoms. He went back to sleep and thought nothing of it but woke up with significant urticaria covering his entire body, neck, chest, puffy eyes, difficulty breathing and some minor lip swelling. Patient presents to the emergency department for suspected anaphylaxis and brought back to room 11 for resuscitation and evaluation. no chest pain, abdominal pain, diarrhea, nausea or vomiting. No headache or syncope. Related Data Home Medications ?Medication ?Instructions ?Recorded ?Confirmed ?Last Taken ?Type tadalafil 5 mg tablet (Cialis) 5 mg PO DAILY 08/02/24 08/02/24 Unknown History Allergies Allergy/AdvReac Type Severity Reaction Status Date / Time No Known Allergies Allergy Verified 10/18/24 08:34 Review of Systems Review of Systems: as reviewed above in HPI [facility] Past Medical History Medical History Anxiety ADHD Social History Social History Smoking status: Never smoker Tobacco type: e-cigarettes/vaping Alcohol intake: current Drinks per week: 4 Living arrangements: with family Spiritual care concerns: No Exam Narrative: GENERAL: Uncomfortable appearing, urticarial rash diffusely, puffy eyes. Ambulating without assistance and talking in complete sentences HEAD: [Normocephalic, atraumatic.] EYES: Periorbital edema, pupils are 2 mm and reactive, extraocular movements are intact ENT: Nares clear, no rhinorrhea or epistaxis. Mucous membranes moist. no posterior or pharyngeal erythema, no uvular edema, no base of tongue swelling, no lip swelling, no signs of airway compromise at this time NECK: Supple. CHEST: [Clear to auscultation. No respiratory distress.] HEART: [Regular rate and rhythm]. No murmur heard. [Normal peripheral pulses.] ABDOMEN: [Soft, nondistended], [nontender], [No rigidity or guarding] EXTREMITIES: Normal range of motion. [No edema.] SKIN: diffuse urticarial rash covering the majority of his body including both arms, both legs, trunk, back, face and neck. NEURO: [No focal deficits]. Alert and oriented [x3.] PSYCH: [Normal mood and affect.] Course Vital Signs Vital signs: Vital Signs Temperature 36.6 C 10/19/24 15:30 Pulse Rate 93 10/19/24 15:30 Respiratory Rate 18 10/19/24 15:30 Blood Pressure 130/61 10/19/24 15:30 Pulse Oximetry 100 10/19/24 15:30 Oxygen Delivery Room Air 10/19/24 15:30 Temperature 36.6 C 10/19/24 18:00 Pulse Rate 86 10/19/24 19:33 Respiratory Rate 15 10/19/24 19:33 Blood Pressure 117/65 10/19/24 19:33 Pulse Oximetry 99 10/19/24 19:33 Oxygen Delivery Room Air 10/19/24 15:30 MDM - Allergic Reaction MDM Narrative Medical decision making narrative: 23-year-old male presenting to the emergency department for rebound anaphylaxis /biphasic anaphylaxis symptoms. Patient was treated for anaphylaxis yesterday around 9:00 a.m. and observed in the emergency department. Unclear what triggered his symptomatology as he has no history of allergies or any new exposures such as pets, deodorant, clothing, laundry detergents, household items or new medications. He had steroids, epinephrine and Pepcid /Benadryl yesterday with improvement and discharged home with these medications. Patient did not get the refill them at the pharmacy and woke up at 2:00 a.m. with a recurrence of his urticaria and now acute worsening this afternoon. He has a diffuse urticarial rash but no wheezing, periorbital facial swelling. He was immediately given 0.3 mg of subcutaneous epinephrine for anaphylaxis as well as IV being established with Solu-Medrol 125 mg, Pepcid 20 mg, diphenhydramine 50 mg and a fluid bolus. Laboratory studies will be obtained. Given patient's biphasic anaphylactic nature within 24 hours he will be admitted for prolonged observation and I discussed this with the patient and family at bedside were comfortable with the plan. He will be observed here in the emergency department briefly for symptom improvement and then admitted to the hospital. Chest xray and EKG ordered. Patient observed here for several hours with significant improvement after the epinephrine and steroids/ histamine blockers. His workup was largely unremarkable, chest x-ray shows no acute cardiopulmonary process. Remains on telemetry with good vital signs on repeat examination. He will be admitted this time given his biphasic and rebound anaphylaxis and I discussed the case with the hospitalist currently being covered by kidney wash the [facility]. Patient accepted to a telemetry monitored bed for observation admission. Medical Records Attestation: I reviewed the patient's medical records. Lab Data Attestation: I reviewed the patient's lab results. 10/19/24 15:41 10/19/24 15:41 Labs: Lab Results 10/19/24 Range/Units 15:41 WBC 6.1 (4.5-10.0) K/mm3 RBC 5.18 (4.6-6.20) M/mm3 Hgb 15.6 (14.0-18.0) g/dL Hct 45.8 (42.0-52.0) % MCV 88.4 (80-100) fl MCH 30.1 (26-34) pg MCHC 34.1 (32-36) g/dl RDW 13.2 (11.5-14.5) % Plt Count 307 (150-375) k/mm3 MPV 8.4 (7.4-10.4) fl Immature Gran % (Auto) 0.3 (0-0.5) % Neut % (Auto) 69.7 (45.5-73.1) % Lymph % (Auto) 22.6 (18.3-44.2) % [place] % (Auto) 6.9 (2.6-8.5) % Eos % (Auto) 0.2 (0-4.4) % Baso % (Auto) 0.3 (0.2-1.2) % Lymph # (Auto) 1.38 (0.9-3.2) K/mm3 [place] # (Auto) 0.4 (0.1-0.6) K/mm3 Eos # (Auto) 0.0 (0-0.3) K/mm3 Baso # (Auto) 0.0 (0.0-0.1) K/mm3 Abs Immat Gran (auto) 0.02 (0.00-0.031) K/mm3 Absolute Neuts (auto) 4.3 (1.3-6.7) K/mm3 Absolute Nucleated RBC 0.000 (0.0-0.012) K/mm3 Nucleated RBC % 0.0 (0.0-0.2) % Sodium 139 (137-145) mmol/L Potassium 3.6 (3.4-5.0) mmol/L Chloride 103 (98-107) mmol/L Carbon Dioxide 25 (22-30) mmol/L Anion Gap 11 (4-12) mmol/L BUN 13 (9-20) mg/dL Creatinine 1.01 (0.7-1.3) mg/dL Estim Creat Clear Calc Not Reportable Estimated GFR > 60 (59 - ) Glucose 93 (65-110) mg/dL Calcium 9.2 (8.4-10.2) mg/dL Imaging Data Attestation: I personally reviewed and interpreted this imaging study as follows: My impression: Impressions Chest X-Ray 10/19/24 15:40 IMPRESSION: No focal infiltrate or effusion. ECG Data EKG #1: Attestation: I personally reviewed and interpreted this ECG as follows: ECG completion date: 10/19/24 ECG completion time: 15:16 Prior ECG tracings: not available for review Interpretation: Sinus tachycardia, QTC 4 3, QRS 87, rate of 100 beats per minute. SC interval 117. No ST segment elevations, depressions or inversions. Final interpretation sinus tachycardia, no previous EKG for comparison purposes. Critical Care Time Critical Care Time Critical Care Time: Yes Total Critical Care Time: 36 Discharge Plan Discharge Clinical Impression: Anaphylaxis, Allergic reaction, Urticaria Patient Disposition: Still a Patient Condition: Stable
--- OUTSIDE RECORDS SUMMARY | 2024-10-19 15:54 | XMS_ITS | Continuity of Care Document ---
Author Organization [facility] Address [address] [place] [address] Phone Care Team Providers Care Pattern Attendant Name Role Phone Saul Rivera MD Unavailable [...] Diagnoses Date Provider Providers Copied on Encounter [facility] [place], [address] [place] [address] A, [place], [place], [address], [place] tel:[phone] [facility] [place] No Information 3 Miguel Hughes. [address], [place], [place], [address] , [place]. tel:[phone] PREV VISIT, EST, AGE 18-39 [facility] [place], [address], [place], [place], [address], [place] tel:[phone] [facility] [place] physical (chief complaint) Encounter for general adult medical exam w abnormal findingsAcneAttenti on deficitGeneralized Anxiety DisorderHypokalemia Proteinuria 3 Miguel Hughes. [address], [place], [place], [address] , [place]. tel:[phone] OFFICE/OUTPA TIENT VISIT, [facility], [address], [place], [place], [address], [place] tel:[phone] [facility] [place] ADD (chief complaint) acne1 (chief complaint) fever (chief complaint) AcneAttention deficitViral infection 3 Miguel Hughes. [address], [place], [place], [address] , [place]. tel:[phone] OFFICE/OUTPA TIENT VISIT, [facility], [address], [place], [place], [address], [place] tel:[phone] [facility] [place] anxiety1 (chief complaint) Acne1 (chief complaint) ADD (chief complaint) Generalized Anxiety DisorderAcneAttenti on deficit 3 Miguel Hughes. [address], [place], [place], [address] , [place]. tel:[phone] OFFICE/OUTPA TIENT VISIT, [facility], [address], [place], [place], [address], [place] tel:[phone] [facility] [place] anxiety1 (chief complaint) ADD (chief complaint) acne (chief complaint) pectus1 (chief complaint) Generalized Anxiety DisorderAttention deficitAcnePectus carinatum 3 Rivera Saul. [address], [place], [place], [address] , [place]. tel:[phone] OFFICE/OUTPA TIENT VISIT, EST [facility] [place], [address], [place], [place], [address], [place] tel:[phone] [facility] [place] ADD (chief complaint) anxiety1 (chief complaint) pectus1 (chief complaint) Attention deficitPectus carinatum 2 Rivera Saul. [address], [place], [place], [address] , [place]. tel:[phone] OFFICE/OUTPA TIENT VISIT, EST [facility] [place], [address], [place], [place], [address], [place] tel:[phone] [facility] [place] ADD (chief complaint) Attention deficit 2 Rivera Saul. [address], [place], [place], [address] , [place]. [phone] PREV VISIT, EST, AGE 18-39 [facility] [place], [address], [place], [place], [address], [place] tel:[phone] [facility] [place] physical (chief complaint) Encounter for general adult medical exam w abnormal findingsAcneGeneral ized Anxiety DisorderAttention deficitPectus carinatum 2 Rivera Saul. [address], [place], [place], [address] , [place]. tel:[phone] OFFICE/OUTPA TIENT VISIT, EST [facility] [place], [address], [place], [place], [address], [place] tel:[phone] [facility] [place] anxiety1 (chief complaint) ADD (chief complaint) pectus1 (chief complaint) Pectus carinatumEmphysemaG eneralized Anxiety DisorderAttention deficit 2 Rivera Saul. [address], [place], [place], [address] , [place]. tel:[phone] OFFICE/OUTPA TIENT VISIT, [facility], [address], [place], [place], [address], [place] tel:[phone] [facility] [place] Acne (chief complaint) pectus1 (chief complaint) Pectus carinatumEmphysemaA cne 1 Miguel Hughes. [address], [place], [place], [address] , [place]. tel: [phone] OFFICE/OUTPA TIENT VISIT, [facility], [address], [place], [place], [address], [place] tel:[phone] [facility] [place] pectus (chief complaint) proteinuri a1 (chief complaint) truncal acne (chief complaint) AcnePectus carinatumProteinuri aDyspnea 1 Miguel Hughes. [address], [place], [place], [address] , [place]. tel:[phone] OFFICE/OUTPA TIENT VISIT, [facility], [address], [place], [place], [address], [place] tel:[phone] [facility] [place] pectus (chief complaint) proteinuri a1 (chief complaint) Pectus carinatumProteinuri a 0 1 Miguel Hughes. [address], [place], [place], [address] , [place]. [phone] OFFICE/OUTPA TIENT VISIT, [facility], [address], [place], [place], [address], [place] tel:[phone] [facility] [place] low D (chief complaint) low kcl (chief complaint) proteinuri a1 (chief complaint) pectus1 (chief complaint) Pectus carinatumProteinuri aHypokalemiaVitamin D deficiency, unspecified Mar-0 - 1 Miguel Hughes. [address], [place], [place], [address] , [place]. tel:[phone] PREV VISIT, NEW, AGE 18-39 [facility] [place], [address], [place], [place], [address], [place] tel:[phone] [facility] physical (chief complaint) Encounter for general adult medical exam w abnormal findingsPectus carinatumDyspneaGen eralized Anxiety DisorderAttention deficitPolyuria 1 Miguel Hughes. [address], [place], [place], [address] , [place]. tel:[phone] Family History Family Member Type Diagnosis Age [...] Referral Referred To: Roxy PAYTON, Tiffany Chang [address] [place], [place], [id number] Ordered: Referrals: Tiffany Ramsey MD. Evaluate and [...] Singh [address] [place], [place], [phone] Ordered: Referrals: Allopathic & Osteopathic Physicians : [...] recurrent facial acne. Pt used to see lastex thread winder but he has not seen lastex thread winder for more than one year. Pt wants [...] is kind of confused about seeing a insurance marketing specialist vs PFT. Pt states that he saw insurance marketing specialist but nothing was done. He states [...] told by CT surgeon to see a lastex thread winder to get the acne treated before the carinatum repair. pectus Pt has severe pe ctus carinatum. Pt has appointment with pectus clinic at [facility] in 10 days, Pt denies any [...]
--- OUTSIDE RECORDS SUMMARY | 2024-10-19 15:54 | XMS_ITS | Clinical Summary ---
Author Organization [facility] Address [address] [place] [address] Care Team Providers Care Mail Courier Name Role Phone Saul Rivera MD Primary Care Provider [phone] [facility],non-owned Affiliates and Associated Physician Practices is amultiple site organization consisting of ambulatory clinics and hospital sitesin [place], [place], [place] and [place]. This disclosure is being madepursuant to the Care Everywhere program and may not contain all information available regarding this patient. Last updated 18.[facility] Allergies No known active allergies Medications * [...] from the original. [facility] lab [facility] valid 03/15/18-09/13/18 Problem Noted Date Diagnosed Date Anxiety 04/23/2018 Overview (04/23/2018): adolescent onset 04/23/18 very self-conscious about pectus>acne; home-school GED program with special training ; denies feelings of self-harm; Psych eval planned pending 05/12 counselor assessment brother with h/o depression/on medication Acne conglobata 02/19/2018 Overview (04/23/2018): [employer] #[id number] 02/19/18 severe chest/back>face on Augmentin, clinda, [employer]; [...] on file Legal Sex Male 5:41 AM [employer] Gender Identity Not on file Sexual Orientation [...] MEDICAID - OUT OF STATE Care Teams Mail Courier Relationship Specialty Start Date End Date Saul Rivera MD PCP - General 10/23/20
[2024-10-19 15:58] LABS: Basophils Percent Auto 0.3 % (0.2-1.2); Eosinophils Percent Auto 0.2 % (0-4.4); Hematocrit 45.8 % (42.0-52.0); Hemoglobin 15.6 g/dL (14.0-18.0); Immature Granulocyte Absolute 0.02 K/mm3 (0.00-0.031); Immature Granulocyte Percent A 0.3 % (0-0.5); Lymphocytes Absolute Auto 1.38 K/mm3 (0.9-3.2); Lymphocytes Percent Auto 22.6 % (18.3-44.2); Mean Corpuscular HGB Conc 34.1 g/dl (32-36); Mean Corpuscular Hemoglobin 30.1 pg (26-34); Mean Corpuscular Volume 88.4 fl (80-100); Mean Platelet Volume 8.4 fl (7.4-10.4); Monocytes Absolute Auto 0.4 K/mm3 (0.1-0.6); Monocytes Percent Auto 6.9 % (2.6-8.5); Neutrophils Absolute Auto 4.3 K/mm3 (1.3-6.7); Neutrophils Percent Auto 69.7 % (45.5-73.1); Platelet Count Result 307 k/mm3 (150-375); Red Blood Count 5.18 M/mm3 (4.6-6.20); Red Cell Distribution Width 13.2 % (11.5-14.5); White Blood Count 6.1 K/mm3 (4.5-10.0)
[2024-10-19 16:06] LABS: Anion Gap 11 mmol/L (4-12); Blood Urea Nitrogen 13 mg/dL (9-20); Calcium 9.2 mg/dL (8.4-10.2); Carbon Dioxide 25 mmol/L (22-30); Chloride 103 mmol/L (98-107); Estimated Glomerular Filt Rate > 60; Glucose 93 mg/dL (65-110); Potassium 3.6 mmol/L (3.4-5.0); Sodium 139 mmol/L (137-145)
--- NOTE | 2024-10-19 19:08 | PM.IMHP ---
H&P: HPI History of Present Illness Date/Time: 10/19/24 19:08 Chief Complaint: Anaphylaxis Narrative: 23-year-old male with medical history of anxiety and ADHD presents the hospital with anaphylaxis. Patient presents to the ED yesterday anaphylaxis and was treated and observed for 6 hours and then with home. Overnight his symptoms came back and by the time he woke up with morning his eyes were swollen shut. Patient states that when he woke up this morning he just had small red spots on his arms and legs, that has progressively gotten worse. So came back to the emergency room. Patient states that he did take Adderall yesterday, which she has not taken in months and was worried that may cause the him flex. He states that he also switched kind of Tide he uses for his laundry. Is with only 2 things the patient states that his changed recently. Lab work in the ED is within normal limits, chest x-ray with no acute process. Review of Systems Review of Systems: 12 systems were reviewed and are negative except for as per HPI. [facility] Past Medical History Medical History Anxiety ADHD Social History Social History Years smoked: 6 Smoking status: Current every day smoker Tobacco type: e-cigarettes/vaping Alcohol intake: current Drinks per week: 8 Substance use: never Last use: drinks on the weekends Do You Feel Safe in your Home?: Yes Lack of Transportation: No Lack of Food: Never True Current Housing: I Have Housing Concerned About Future Housing: No Difficulty Paying Gas/Electric Bills: No Difficulty Paying for Meds: No Currently Unemployed: No Education: Decline to Answer Difficulty w/ Childcare or Family Care: No Living arrangements: with family Spiritual care concerns: No Meds Home Medications and Allergies Home Medications ?Medication ?Instructions ?Recorded ?Confirmed ?Type tadalafil 5 mg tablet (Cialis) 5 mg PO DAILY 08/02/24 10/19/24 History cetirizine 10 mg tablet (Zyrtec) 10 mg PO DAILY PRN allergy 10/18/24 10/19/24 Rx symptoms #30 tabs Allergies Allergy/AdvReac Type Severity Reaction Status Date / Time No Known Allergies Allergy Verified 10/18/24 08:34 Vital Signs Vital Signs - 24 hr 10/19/24 15:30 10/19/24 16:30 10/19/24 16:46 Temperature 97.9 F 97.8 F Pulse Rate 93 90 83 Respiratory Rate 18 16 16 Blood Pressure 130/61 115/56 L 113/60 Pulse Oximetry 100 100 98 Oxygen Delivery Room Air 10/19/24 17:16 10/19/24 17:23 10/19/24 18:00 Temperature 97.9 F 97.8 F Pulse Rate 88 88 76 Respiratory Rate 16 18 16 Blood Pressure 122/62 120/61 110/56 L Pulse Oximetry 98 100 100 Oxygen Delivery Exam Narrative: General: well appearing, appears stated age. HEENT: Periorbital edema normocephalic, atraumatic. Mucous membranes moist. EOMI, PERRLA, bilateral sclera anicteric, no conjunctival injection. Neck supple without JVD, lymphadenopathy, or bruit. Respiratory: clear to ascultation bilaterally. No rales/rhonic/wheezes. Cardiovascular: Regular rate and rhythm, normal S1-S2 upon ascultation. No murmurs, rubs, or clicks. PMI is nondisplaced, capillary refill less than 3 second. Abdomen: Soft, round, no pulsatile masses, nondistended and nontender. No rebound, no guarding. No CVA tenderness, no hepatosplenomegaly. Bowel sounds present to all four quadrants. No high pitch or tinkling sounds, resonant to percussion. Extremities: No cyanosis, clubbing, or edema present. Pulses are palpable 2/2. Active ROM to all four extremities. Neuro: Alert and orientated x 4. PERRLA. Cranial nerves 2-12 intact without focal deficit. Skin: Large patches of erythema on arms legs chest and back Psych: pleasant, cooperative, normal speech, normal affect, no hallucinations, no dysarthia H&P: Results Labs Labs: Short CBC 10/19/24 Range/Units 15:41 WBC 6.1 (4.5-10.0) K/mm3 Hgb 15.6 (14.0-18.0) g/dL Hct 45.8 (42.0-52.0) % Plt Count 307 (150-375) k/mm3 [facility] 10/19/24 15:41 Sodium 139 Potassium 3.6 Chloride 103 Carbon Dioxide 25 BUN 13 Creatinine 1.01 Glucose 93 Calcium 9.2 Assessment and Plan Assessment and plan (1) Anaphylaxis: Code(s): T78.2XXA - Anaphylactic shock, unspecified, initial encounter Status: Acute Assessment and Plan: Unknown cause P.r.n. IV Benadryl, IM epinephrine, and racemic epi Pepcid in Q 12 Zyrtec Prednisone Telemetry monitoring Recommend following up outpatient with the testing and regulating technician for allergy testing EpiPen at discharge (2) Rash: Code(s): R21 - Rash and other nonspecific skin eruption Status: Acute Assessment and Plan: See above Quality VTE Prophylaxis VTE prophylaxis: mechanical ordered Hospitalist [facility] Advance Care Plan I have confirmed that the patient's Advanced Care Plan is present, code status is documented, or surrogate decision maker is listed in patient medical record.: Yes Medication Reconciliation I have utilized all available resources to obtain, update and review the patients current medications (includes all prescriptions, OTC, herbals, cannabis, and nutritional supplements).: Yes
[2024-10-19] MEDS: FAMOTIDINE 20 MG/2 ML VIAL IV PUSH (20:18)
[2024-10-19] MEDS: LORATADINE/PSEUDOEPHEDRINE (*CRX) 10/240 MG TABLET ER 24 HR 1 TAB PO (20:18)
[2024-10-19] MEDS: diphenhydrAMINE HCl INJ 50 MG/ML VIAL IV PUSH ×2 (20:33→23:53)
--- NOTE | 2024-10-19 21:29 | ADMGEN ---
This patient, Rajat Mullins, was admitted to IMU Room 210-01. Patient/family oriented to hospital policies and general routines including ID bracelet, bed and alarms, visiting hours, pain management, procedures, bathroom and other care routines, personal items, smoking policy, room service/diet, and visiting hours. Information on how to activate the Rapid Response Team has been discussed. Patient/Family are encouraged to report perceived risks to care and to ask questions if they do not understand what they are told or what they should do.
[2024-10-19] MEDS: EPINEPHrine HCL INJ 1 MG/ML AMPUL 0.3 MG IM (23:52)
[2024-10-20] VITALS (11 sets, daily range): BP systolic 126–143; BP diastolic 58–65; PULSE 74–107; RESP 16–17; TEMP 36.4–37.1; O2SAT 97–100
[2024-10-20] MEDS: methylPREDNISolone SOD SUCC 125 MG VIAL IV PUSH (00:28)
[2024-10-20 04:44] LABS: Basophils Percent Auto 0.2 % (0.2-1.2); Hematocrit 41.5 % (42.0-52.0); Hemoglobin 13.9 g/dL (14.0-18.0); Immature Granulocyte Absolute 0.02 K/mm3 (0.00-0.031); Immature Granulocyte Percent A 0.3 % (0-0.5); Lymphocytes Percent Auto 8.3 % (18.3-44.2); Mean Corpuscular HGB Conc 33.5 g/dl (32-36); Mean Corpuscular Hemoglobin 30.2 pg (26-34); Mean Platelet Volume 8.3 fl (7.4-10.4); Monocytes Absolute Auto 0.1 K/mm3 (0.1-0.6); Monocytes Percent Auto 1.2 % (2.6-8.5); Neutrophils Absolute Auto 5.5 K/mm3 (1.3-6.7); Platelet Count Result 285 k/mm3 (150-375); Red Blood Count 4.61 M/mm3 (4.6-6.20); Red Cell Distribution Width 13.2 % (11.5-14.5); White Blood Count 6.1 K/mm3 (4.5-10.0)
[2024-10-20 05:00] LABS: Anion Gap 10 mmol/L (4-12); Blood Urea Nitrogen 14 mg/dL (9-20); Calcium 8.5 mg/dL (8.4-10.2); Carbon Dioxide 26 mmol/L (22-30); Chloride 103 mmol/L (98-107); Estimated CRCL calculation 129 ml/min; Estimated Glomerular Filt Rate > 60; Glucose 177 mg/dL (65-110); Potassium 4.4 mmol/L (3.4-5.0); Sodium 139 mmol/L (137-145)
--- NOTE | 2024-10-20 08:07 | PM.IMPN ---
Progress Note: A&P Assessment and Plan (1) Anaphylaxis: Code(s): T78.2XXA - Anaphylactic shock, unspecified, initial encounter Status: Acute Assessment and Plan: Unknown cause P.r.n. IV Benadryl, IM epinephrine, and racemic epi Pepcid in Q 12 Zyrtec Prednisone Telemetry monitoring Recommend following up outpatient with the pattern attendant for allergy testing EpiPen at discharge (2) Rash: Code(s): R21 - Rash and other nonspecific skin eruption Status: Acute Assessment and Plan: See above Subjective Date/time seen: 10/20/24 08:07 Review of Systems Review of Systems: 12 systems were reviewed and are negative except for as per HPI. Exam Narrative: General: well appearing, appears stated age. HEENT: Periorbital edema normocephalic, atraumatic. Mucous membranes moist. EOMI, PERRLA, bilateral sclera anicteric, no conjunctival injection. Neck supple without JVD, lymphadenopathy, or bruit. Respiratory: clear to ascultation bilaterally. No rales/rhonic/wheezes. Cardiovascular: Regular rate and rhythm, normal S1-S2 upon ascultation. No murmurs, rubs, or clicks. PMI is nondisplaced, capillary refill less than 3 second. Abdomen: Soft, round, no pulsatile masses, nondistended and nontender. No rebound, no guarding. No CVA tenderness, no hepatosplenomegaly. Bowel sounds present to all four quadrants. No high pitch or tinkling sounds, resonant to percussion. Extremities: No cyanosis, clubbing, or edema present. Pulses are palpable 2/2. Active ROM to all four extremities. Neuro: Alert and orientated x 4. PERRLA. Cranial nerves 2-12 intact without focal deficit. Skin: Large patches of erythema on arms legs chest and back Psych: pleasant, cooperative, normal speech, normal affect, no hallucinations, no dysarthia Objective Data Vital Signs Vital Signs: Vital Signs - 24 hr 10/19/24 15:30 10/19/24 16:30 10/19/24 16:46 Temperature 97.9 F 97.8 F Pulse Rate 93 90 83 Respiratory Rate 18 16 16 Blood Pressure 130/61 115/56 L 113/60 Pulse Oximetry 100 100 98 Oxygen Delivery Room Air 10/19/24 17:16 10/19/24 17:23 10/19/24 18:00 Temperature 97.9 F 97.8 F Pulse Rate 88 88 76 Respiratory Rate 16 18 16 Blood Pressure 122/62 120/61 110/56 L Pulse Oximetry 98 100 100 Oxygen Delivery 10/19/24 19:33 10/19/24 20:00 10/19/24 20:07 Temperature 98.3 F Pulse Rate 86 84 85 Respiratory Rate 15 17 Blood Pressure 117/65 128/50 L Pulse Oximetry 99 100 Oxygen Delivery 10/19/24 20:15 10/19/24 22:00 10/19/24 23:26 Temperature 98.0 F Pulse Rate 109 H 97 Respiratory Rate 17 Blood Pressure 119/94 H Pulse Oximetry 100 Oxygen Delivery Room Air 10/20/24 00:00 10/20/24 00:00 10/20/24 02:00 Temperature Pulse Rate 102 H 94 Respiratory Rate Blood Pressure Pulse Oximetry Oxygen Delivery Room Air 10/20/24 03:43 10/20/24 04:00 10/20/24 04:00 Temperature 97.5 F L Pulse Rate 76 82 Respiratory Rate 17 Blood Pressure 126/58 L Pulse Oximetry 97 Oxygen Delivery Room Air 10/20/24 06:00 10/20/24 07:58 Temperature 98.7 F Pulse Rate 79 74 Respiratory Rate 16 Blood Pressure 143/59 H Pulse Oximetry 100 Oxygen Delivery Intake/Output Intake/Output: Intake & Output 10/17/24 10/18/24 10/19/24 10/20/24 23:59 23:59 23:59 23:59 Intake Total 1000 Output Total 500 Balance 500 Meds/Results Medications: Active Medications Generic Name Dose Route Start Last Admin Trade Name Freq PRN Reason Stop Dose Admin Acetaminophen 650 mg 10/19/24 19:24 Acetaminophen 325 Mg Tablet PO Q4H PRN Mild Pain (1-3) or Fever Diphenhydramine HCl 50 mg 10/19/24 17:38 10/19/24 23:53 Diphenhydramine Hcl Inj 50 Mg/Ml Vial IV PUSH 50 mg Q4H PRN Administration Anaphylaxis Epinephrine 0.5 ml 10/19/24 17:38 Racepinephrine 2.25% Nebu Soln 0.5 Ml Vial.Neb INHALATION Q6HR PRN Anaphylaxis Epinephrine HCl 0.3 mg 10/19/24 17:38 10/19/24 23:52 Epinephrine Hcl Inj 1 Mg/Ml Ampul IM 0.3 mg ONCE PRN Administration Anaphylaxis Famotidine 20 mg 10/19/24 21:00 10/19/24 20:18 Famotidine 20 Mg/2 Ml Vial IV PUSH 20 mg Q12HR [facility] Administration Loratadine 10 mg 10/20/24 09:00 Loratadine 10 Mg Tablet PO QAM [facility] Prednisone 40 mg 10/20/24 08:00 Prednisone 20 Mg Tablet PO DAILY@0800 [facility] Radiology Results: ITS Impressions Chest X-Ray 10/19/24 15:40 IMPRESSION: No focal infiltrate or effusion. Labs Labs: Laboratory Results - last 24 hr 10/19/24 10/20/24 15:41 04:25 WBC 6.1 6.1 RBC 5.18 4.61 Hgb 15.6 13.9 L Hct 45.8 41.5 L MCV 88.4 90.0 MCH 30.1 30.2 MCHC 34.1 33.5 RDW 13.2 13.2 Plt Count 307 285 MPV 8.4 8.3 Immature Gran % (Auto) 0.3 0.3 Neut % (Auto) 69.7 90.0 H Lymph % (Auto) 22.6 8.3 L [place] % (Auto) 6.9 1.2 L Eos % (Auto) 0.2 0.0 Baso % (Auto) 0.3 0.2 Lymph # (Auto) 1.38 0.50 L [place] # (Auto) 0.4 0.1 Eos # (Auto) 0.0 0.0 Baso # (Auto) 0.0 0.0 Abs Immat Gran (auto) 0.02 0.02 Absolute Neuts (auto) 4.3 5.5 Absolute Nucleated RBC 0.000 0.000 Nucleated RBC % 0.0 0.0 Sodium 139 139 Potassium 3.6 4.4 Chloride 103 103 Carbon Dioxide 25 26 Anion Gap 11 10 BUN 13 14 Creatinine 1.01 0.89 Estim Creat Clear Calc Not Reportable 129 Estimated GFR > 60 > 60 Glucose 93 177 H Calcium 9.2 8.5 Quality VTE Prophylaxis VTE prophylaxis: mechanical ordered Hospitalist MIPS Advance Care Plan I have confirmed that the patient's Advanced Care Plan is present, code status is documented, or surrogate decision maker is listed in patient medical record.: Yes Medication Reconciliation I have utilized all available resources to obtain, update and review the patients current medications (includes all prescriptions, OTC, herbals, cannabis, and nutritional supplements).: Yes
[2024-10-20] MEDS: predniSONE 20 MG TABLET 40 MG PO (09:13)
[2024-10-20] MEDS: FAMOTIDINE 20 MG/2 ML VIAL IV PUSH (09:13)
[2024-10-20] MEDS: LORATADINE 10 MG TABLET PO (09:13)
[2024-10-20] MEDS: diphenhydrAMINE HCl CAP 25 MG CAPSULE PO (12:23)
[2024-10-20 14:10] LABS: Syphilis IgG/IgM Antibody Negative (Negative)
[2024-10-20 14:24] LABS: HIV 1/2 Ab P24 Ag Result Negative (Negative)
--- NOTE | 2024-10-20 14:42 | PM.DS ---
DS: Admitting Diagnosis Discharge Date 0 10/20/2024 Admitting Diagnosis Hives/anaphylaxis DS: Discharge Diagnosis Discharge Diagnosis (1) Anaphylaxis: Code(s): T78.2XXA - Anaphylactic shock, unspecified, initial encounter Status: Acute Assessment and Plan: Unknown cause P.r.n. IV Benadryl, IM epinephrine, and racemic epi Pepcid in Q 12 Zyrtec Prednisone Telemetry monitoring Recommend following up outpatient with the blower feeder dyed raw stock for allergy testing EpiPen at discharge (2) Rash: Code(s): R21 - Rash and other nonspecific skin eruption Status: Acute Assessment and Plan: See above DS: Summary Hospital Course Hospital Course: 23-year-old otherwise healthy male presenting to the emergency department for suspected anaphylactic reaction. Patient was seen here yesterday morning in the ED after he woke up with some body aches and took ibuprofen. He had upper respiratory infection symptoms and was found to have urticarial rash. At that time he was diagnosed with influenza B after viral panel came back positive but he was also having worsening symptoms including urticarial rash progressing around his neck and body requiring epinephrine injection and steroid/ Benadryl in the emergency department. He was observed for several hours and discharged home with a epinephrine autoinjector prescription and medications sent to his pharmacy including Benadryl and Pepcid. He did not get to refilling these medications or get an epinephrine injector yet and this morning at 2:00 a.m. was having recurrence of his symptoms. He went back to sleep and thought nothing of it but woke up with significant urticaria covering his entire body, neck, chest, puffy eyes, difficulty breathing and some minor lip swelling. Patient presents to the emergency department for suspected anaphylaxis and brought back to room 11 for resuscitation and evaluation. no chest pain, abdominal pain, diarrhea, nausea or vomiting. No headache or syncope. Both HIV and syphilis were negative. Pending chlamydia and gonorrhea results. On the day of discharge, the patient was seen and examined. Vital signs were stable. Physical exam were stable and labs were reviewed at length. Discharge instructions, medications, and follow-up appointments were discussed with the patient at length and all day questions were answered. ER warnings were given. Status at Discharge Cognitive/behavioral status at discharge: Stable Time Spent with Patient Time attestation: Total time spent providing and/or coordinating discharge services: 45 minutes Exam Narrative: General: well appearing, appears stated age. HEENT: Periorbital edema normocephalic, atraumatic. Mucous membranes moist. EOMI, PERRLA, bilateral sclera anicteric, no conjunctival injection. Neck supple without JVD, lymphadenopathy, or bruit. Respiratory: clear to ascultation bilaterally. No rales/rhonic/wheezes. Cardiovascular: Regular rate and rhythm, normal S1-S2 upon ascultation. No murmurs, rubs, or clicks. PMI is nondisplaced, capillary refill less than 3 second. Abdomen: Soft, round, no pulsatile masses, nondistended and nontender. No rebound, no guarding. No CVA tenderness, no hepatosplenomegaly. Bowel sounds present to all four quadrants. No high pitch or tinkling sounds, resonant to percussion. Extremities: No cyanosis, clubbing, or edema present. Pulses are palpable 2/2. Active ROM to all four extremities. Neuro: Alert and orientated x 4. PERRLA. Cranial nerves 2-12 intact without focal deficit. Skin: Large patches of erythema on arms legs chest and back Psych: pleasant, cooperative, normal speech, normal affect, no hallucinations, no dysarthia DS: Data Data Completed and Pending Labs on day of discharge: Labs from last 24 hours 10/20/24 10/20/24 10/20/24 14:32 04:25 04:23 WBC 6.1 RBC 4.61 Hgb 13.9 L Hct 41.5 L MCV 90.0 MCH 30.2 MCHC 33.5 RDW 13.2 Plt Count 285 MPV 8.3 Immature Gran % (Auto) 0.3 Neut % (Auto) 90.0 H Lymph % (Auto) 8.3 L [place] % (Auto) 1.2 L Eos % (Auto) 0.0 Baso % (Auto) 0.2 Lymph # (Auto) 0.50 L [place] # (Auto) 0.1 Eos # (Auto) 0.0 Baso # (Auto) 0.0 Abs Immat Gran (auto) 0.02 Absolute Neuts (auto) 5.5 Absolute Nucleated RBC 0.000 Nucleated RBC % 0.0 Sodium 139 Potassium 4.4 Chloride 103 Carbon Dioxide 26 Anion Gap 10 BUN 14 Creatinine 0.89 Estim Creat Clear Calc 129 Estimated GFR > 60 Glucose 177 H Calcium 8.5 Syphilis IgG/IgM Ab Negative C. trachomatis (PCR) Pending HIV 1&2 Ab/P24 Ag 4thGn Negative N. gonorrhoeae (PCR) Pending 10/19/24 15:41 WBC 6.1 RBC 5.18 Hgb 15.6 Hct 45.8 MCV 88.4 MCH 30.1 MCHC 34.1 RDW 13.2 Plt Count 307 MPV 8.4 Immature Gran % (Auto) 0.3 Neut % (Auto) 69.7 Lymph % (Auto) 22.6 [place] % (Auto) 6.9 Eos % (Auto) 0.2 Baso % (Auto) 0.3 Lymph # (Auto) 1.38 [place] # (Auto) 0.4 Eos # (Auto) 0.0 Baso # (Auto) 0.0 Abs Immat Gran (auto) 0.02 Absolute Neuts (auto) 4.3 Absolute Nucleated RBC 0.000 Nucleated RBC % 0.0 Sodium 139 Potassium 3.6 Chloride 103 Carbon Dioxide 25 Anion Gap 11 BUN 13 Creatinine 1.01 Estim Creat Clear Calc Not Reportable Estimated GFR > 60 Glucose 93 Calcium 9.2 Syphilis IgG/IgM Ab C. trachomatis (PCR) HIV 1&2 Ab/P24 Ag 4thGn N. gonorrhoeae (PCR) Discharge Plan Discharge Attending physician on discharge: Stef Hays Consulting providers: Vini Gonzáles Discharging Clinician: Stef Hays Anticipated Discharge Date/Time: 10/20/24 14:47 Patient Disposition: Home Activity: as tolerated Diet: as tolerated Discharge Instructions: In the event of a rash, shortness of breath or lip swelling please seek immediate medical care Check blood pressure 1 to 2 times a day. Record and bring into your doctor for review. Call your doctor if your blood pressure is greater than 180/110 or less than 90/45. Walk with cane or other assist device. Take precautions to avoid falls. Rise slowly from a lying or sitting position. Pause before standing or walking. Contact your doctor or call 911 and come to the Emergency Room if you have any type of trauma, lightheadedness with standing or other worrisome symptoms. Avoid NSAIDs (ibuprofen, naproxen, Aleve). Tylenol is safe to take. Follow-up with your primary care provider in 1-2 weeks. Please call for appointment. Follow-up with allergy medicine in 2-4 weeks. Please call for an appointment. Thank you for using [facility] for your health care needs. Patient Instructions: Antibiotic Form, Prednisone (By mouth), Epinephrine (By injection), Anaphylaxis (GEN), General Allergic Reaction (ED) Patient Language: Nepalese Stand Alone Forms: General Discharge Information Follow-up/Referrals: PHYSICIAN,FERRULER [Primary Care Provider] - Discharge Medications: New epinephrine [EpiPen 2-Michael] 0.3 mg/0.3 mL auto-injector 0.3 mg IM ONCE Qty: 2 0RF Rx Instructions: as a single dose; may repeat once prednisone 20 mg Tablet 40 mg PO DAILY@0800 Qty: 3 0RF pantoprazole 40 mg tablet,delayed release (DR/EC) 40 mg PO QAM 28 Days Qty: 28 0RF Continued cetirizine [Zyrtec] 10 mg tablet 10 mg PO DAILY PRN (Reason: allergy symptoms) Qty: 30 0RF No Action tadalafil [Cialis] 5 mg tablet 5 mg PO DAILY Date of admission: 10/19/24 16:54 Primary Care Provider: PHYSICIAN,FERRULER Admitting Provider: Stef Hays Attending physician on admission: Stef Hays Condition: Stable
[2024-10-20 16:14] LABS: Chlamydia trachomatis NOT DETECTED (NOT DETECTE); Neisseria gonorrhoeae PCR NOT DETECTED (NOT DETECTE)
== END 2024-10-20 15:20 | disposition home or self-care (01) ==
LOC: ANHED 15:53 → ANH3MEDSUR 17:37 → ANHIMU 19:03
PROVIDERS: Nurse Practitioner Gerontology; Admitting Provider General Practice; Emergency Provider Student in an Organized Health Care Education/Training Program; Visit Provider General Practice
DX: T78.2XXA Anaphylactic shock, unspecified, initial encounter (principal); R21 Rash and other nonspecific skin eruption; F90.9 Attention-deficit hyperactivity disorder, unspecified type; F41.9 Anxiety disorder, unspecified; F17.290 Nicotine dependence, other tobacco product, uncomplicated; Z11.3 Encounter for screening for infections with a predominantly sexual mode of transmission; Z11.4 Encounter for screening for human immunodeficiency virus [HIV]; Z79.899 Other long term (current) drug therapy
CPT/HCPCS: 36415; 71045; 80048; 85025; 86593; 86703; 87491; 87591; 93005; 96372; 96374; 96375; 99285; A9270; G0378; G0432; J0171; J1200; J2919; J7030; J7512